=== PATIENT | male | born 1975 | race Two or more races ===

== ENCOUNTER 2024-10-04 18:46 | Inpatient (IN) | payer MEDICAID ==
[~2024-10-04] VITALS: Ht 165.1 cm; Wt 99.9 kg
--- NOTE | 2024-10-04 19:12 | ECG ---
[facility] Test Date: 2024-10-04 Test Time: 19:00:04 Pat Name: SHILA MARTINEZ Department: ED Room: Gender: M [employer] Technician: JOSE DAVID : 1975 Requested By: VENUS COSME Order Number: [id number] Reading MD: Dereck Shankar Measurements Intervals [place] Rate: 107 P: 46 MD: 139 QRS: 95 QRSD: 77 T: 19 QT: 351 QTc: 469 Interpretive Statements Sinus tachycardia Anterior infarct, old Electronically Signed On 10-04-2024 20:40:10 PDT by Dereck Shankar Please click the below link to view image of tracing.
[2024-10-04 19:21] LABS: Basophils # (auto) 0.1 10 ^3/uL (0-0.2); Basophils % (auto) 0.8 % (0.0-2.0); Eosinophils # (auto) 0.1 10 ^3/uL (0-0.8); Eosinophils % (auto) 0.7 % (0.0-7.0); Hematocrit 46.3 % (41.0-53.0); Hemoglobin 15.2 g/dL (13.5-17.5); Lymphocytes # (auto) 5.1 10 ^3/uL (0.4-5.4); Lymphocytes % (auto) 33.8 % (10.0-50.0); Mean Corpuscular Hemoglobin 27.1 pg (28.0-32.0); Mean Corpuscular Hgb Conc. 32.8 g/dL (32.0-36.0); Mean Corpuscular Volume 82.7 fL (80.0-100.0); Monocytes # (auto) 1.6 10 ^3/uL (0-1.3); Monocytes % (auto) 10.5 % (0.0-12.0); Neutrophils # (auto) 8.3 10 ^3/uL (1.6-8.6); Neutrophils % (auto) 54.2 % (37.0-80.0); Nucleated Red Blood Cells % 0.2 %; Platelet Count (auto) 381 10^3/uL (140-450); Red Cell Distribution Width 15.6 % (11.8-14.3); White Blood Cell 15.2 10^3/uL (4.4-10.8)
--- NOTE | 2024-10-04 19:30 | ED.PDOC ---
SOB-HPI HPI Comments 49 y.o male with PMHx of hyperlipidemia, presents to the ED for a chief co mplaint of SOB x 3 days. Upon ED arrival, patient was saturating at 90% on room air. Patient denies any home oxygen use, states new onset symptom with a 2 weeks history of illness that includes a productive cough with yellow phlegm and lower extremity swelling now radiating up to his thighs and abdomen. Patient is not on any water pill. He denies any chest pain, fever, chills, nausea, vomiting, diarrhea, congestion, or recent illness. Chief Complaint: Shortness of Breath Time Seen by MD: 19:00 Primary Care Provider: NONE Reviewed notes: Nurses Notes, Medications, Allergies Information Source: Patient Mode of Arrival: Ambulatory Severity: Moderate Timing: Days Duration: Since onset Context: At Rest PE Risk Factors: None History of: None Modifying Factors: Nothing Associated Signs and Symptoms: Cough If cough with SOB: Productive, Yellow Past Medical History PAST MEDICAL HISTORY: High Lipids Surgical History: Denies all surgeries Family History Family History: Unknown Social History Smoker: Non-Smoker Alcohol: Denies ETOH Use Drugs: Denies Drug Use Lives In: Home Constitutional: denies: chills, diaphoresis, fatigue, fever, malaise, sweats, weakness, others EENTM: denies: blurred vision, double vision, ear bleeding, ear discharge, ear drainage, ear pain, ear ringing, eye pain, eye redness, hearing loss, mouth pain, mouth swelling, nasal discharge, nose bleeding, nose congestion, nose pain, photophobia, tearing, throat pain, throat swelling, voice changes, others Respiratory: reports: cough, SOB at rest, shortness of breath, SOB with excertion; denies: hemoptysis, orthopnea, stridor, wheezing, others Cardiovascular: denies: chest pain, dizzy spells, diaphoresis, Dyspnea on exertion, edema, irregular heart beat, left arm pain, lightheadedness, palpitations, PND, syncope, others Gastrointestinal: denies: abdomen distended, abdominal pain, blood streaked bowels, constipated, diarrhea, dysphagia, difficulty swallowing, hematemesis, melena, nausea, poor appetite, poor fluid intake, rectal bleeding, rectal pain, vomiting, others Genitourinary: denies: burning, dysuria, flank pain, frequency, hematuria, incontinence, penile discharge, penile sore, pain, testicle pain, testicle swelling, urgency, others Neurological: denies: dizziness, fainting, headache, left sided numbness, left sided weakness, numbness, paresthesia, pre-existing deficit, right sided numbness, right sided weakness, seizure, speech problems, tingling, tremors, we akness, others Musculoskeletal: reports: others (lower extremity swelling radiating to his abdomen ); denies: back pain, gout, joint pain, joint swelling, muscle pain, muscle stiffness, neck pain Integumetry: denies: bruises, change in color, change in hair/nails, dryness, laceration, lesions, lumps, rash, wounds, others Allergic/Immunocompromised: denies: Difficulty Healing, Frequent Infections, Hives, Itching, others Hematologic/Lymphatic: denies: anemia, blood clots, easy bleeding, easy bruising, swollen glands, others Endocrine: denies: excessive hunger, excessive sweating, excessive thirst, excessive urination, flushing, intolerance to cold, intolerance to heat, unexplained weight gain, unexplained weight loss, others Psychiatric: denies: anxiety, bipolar disorder, depression, hopeless, panic disorder, schizophrenia, sleepless, suicidal, others All Other Systems: Reviewed and Negative Physical Exam General Appearance: No Apparent Distress, Normal HEENT: Normal ENT Inspection, Pharynx Normal, TMs Normal Neck: Full Range of Motion, Non-Tender, Normal, Normal Inspection Respiratory: Lungs Clear, No Respiratory Distress, Other (tachypneic) Cardiovascular: No Edema, No JVD, No Murmur, No Gallop, Normal Peripheral Pulses, Regular Rate/Rhythm Breast Exam: Deferred Gastrointestinal: Normal Bowel Sounds Genitalia: Deferred Pelvic: Deferred Rectal: Deferred Extremities: Pedal edema (3+ pitting leg edema ) 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 Was a procedure done?: No Differential Dx Differential Diagnosis: Bronchitis, CHF, Pneumonia, Respiratory Distress, Sinusitis, URI X-Ray, Labs, Meds, VS Vital Signs Date Time Temp Pulse Resp B/P (MAP) Pulse Ox O2 Delivery O2 Flow Rate FiO2 10/04/24 21:06 98.0 107 24 117/74 (88) 96 98.0 10/04/24 21:06 107 24 96 Nasal Cannula 3.0 10/04/24 19:00 107 10/04/24 18:54 96 Nasal Cannula* 2 28 10/04/24 18:50 97.8 113 28 129/94 (106) 90 97.8 Lab Test 10/04/24 19:55 10/04/24 19:06 Range/Units Troponin I High Sensitivity 12 12 </=54 ng/L White Blood Count 15.2 H 4.4-10.8 10^3/uL Red Blood Count 5.60 4.5-5.90 10^6/uL Hemoglobin 15.2 13.5-17.5 g/dL Hematocrit 46.3 41.0-53.0 % Mean Corpuscular Volume 82.7 80.0-100.0 fL Mean Corpuscular Hemoglobin 27.1 L 28.0-32.0 pg Mean Corpuscular Hemoglobin Concent 32.8 32.0-36.0 g/dL Red Cell Distribution Width 15.6 H 11.8-14.3 % Platelet Count 381 140-450 10^3/uL Mean Platelet Volume 9.5 6.9-10.8 fL Neutrophils (%) (Auto) 54.2 37.0-80.0 % Lymphocytes (%) (Auto) 33.8 10.0-50.0 % Monocytes (%) (Auto) 10.5 0.0-12.0 % Eosinophils (%) (Auto) 0.7 0.0-7.0 % Basophils (%) (Auto) 0.8 0.0-2.0 % Neutrophils # (Auto) 8.3 1.6-8.6 10 ^3/uL Lymphocytes # (Auto) 5.1 0.4-5.4 10 ^3/uL Monocytes # (Auto) 1.6 H 0-1.3 10 ^3/uL Eosinophils # (Auto) 0.1 0-0.8 10 ^3/uL Basophils # (Auto) 0.1 0-0.2 10 ^3/uL Nucleated Red Blood Cells 0.2 % Sodium Level 139 136-145 mmol/L Potassium Level 4.6 3.5-5.1 mmol/L Chloride Level 106 98-107 mmol/L Carbon Dioxide Level 28 20-31 mmol/L Anion Gap 5 5-15 Blood Urea Nitrogen 18 9-23 mg/dL Creatinine 1.36 H 0.700-1.30 mg/dL Glomerular Filtration Rate Calc 64 >90 mL/min BUN/Creatinine Ratio 13.2 10.0-20.0 Serum Glucose 122 H 74-106 mg/dL Calcium Level 8.0 L 8.7-10.4 mg/dL Total Bilirubin 0.2 0.2-1.0 mg/dL Aspartate Amino Transferase (AST) 33 13-40 U/L Alanine Aminotransferase (ALT) 20 7-40 U/L Alkaline Phosphatase 232 H 46-116 U/L B-Type Natriuretic Peptide 51.28 0-100 pg/mL Total Protein 3.5 L 5.7-8.2 g/dL Albumin 1.8 L 3.2-4.8 g/dL CHEST RADIOGRAPH IMPRESSION: 1. Large right pleural effusion. HS:Y X-Ray, Labs, Meds, VS Comment Imaging: X-rays and CT scans were reviewed and interpreted by this provider, large right-sided pleural effusion. Pending radiology review. Laboratory: Labs reviewed patient was have elevated white count but normal BNP Patient has prior medical visits reviewed. Med reconciliation performed Vital signs reviewed, patient currently on 2 L nasal cannula maintaining 96% Patient will be admitted for pleural effusion, peripheral edema, Concerns of pill or effusion may has been caused by pneumonia he was patient was have elevated white count. Patient will be started on azithromycin and Rocephin. Recommend pulmonology consult in the morning Time of 1ST Reevaluation: 19:29 Reevaluation 1ST: Unchanged Patient Education/Counseling: Diagnosis, Treatment, Prognosis Family Education/Counseling: No Family Present Departure 1 Departure Time of Disposition: 21:50 Impression: Primary Impression: Pleural effusion Additional Impressions: Peripheral edema Hypoxia Disposition: ADMITTED INPATIENT Condition: Stable Discharged With: Self, Relative Critical Care Note Critical Care Time?: No Stability Stability form required: No I personally scribed for VENUS COSME ([facility]) on 10/04/24 at 19:30. Electronically submitted by Glenda Deng ([facility]). I personally scribed for VENUS COSME ([facility]) on 10/04/24 at 20:52. Electronically submitted by Glenda Deng ([facility]). VENUS OCSME [facility] Oct 04, 2024 19:30
[2024-10-04 19:39] LABS: Alanine Aminotransferase 20 U/L (7-40); Anion Gap 5 (5-15); Aspartate Aminotransferase 33 U/L (13-40); BUN/Creatinine Ratio 13.2 (10.0-20.0); Blood Urea Nitrogen 18 mg/dL (9-23); Carbon Dioxide 28 mmol/L (20-31); Chloride 106 mmol/L (98-107); Potassium 4.6 mmol/L (3.5-5.1); Sodium 139 mmol/L (136-145)
[2024-10-04 19:40] LABS: Albumin 1.8 g/dL (3.2-4.8); Alkaline Phosphatase 232 U/L (46-116); Bilirubin, Total 0.2 mg/dL (0.2-1.0); Glucose 122 mg/dL (74-106); Total Protein 3.5 g/dL (5.7-8.2)
--- NOTE | 2024-10-04 19:47 | DVH ---
CHEST RADIOGRAPH Indication: sob Technique: Single frontal view of the chest was obtained Comparison: None FINDINGS: Lines and Tubes: None Lungs: Large right pleural effusion Pleura: Large right pleural effusion No pneumothorax. Cardiomediastinal contours: Unremarkable Bones: No acute osseous abnormality. IMPRESSION: 1. Large right pleural effusion. HS:Y
[2024-10-04 21:29] VITALS: PULSE 108; RESP 17; O2SAT 94
[2024-10-04] MEDS: cefTRIAXone 1GM/50ML D5W 50 ML IV ONE (22:12)
[2024-10-04] MEDS: AZITHROMYCIN 500MG/ 250ML 250 ML IV ONE (22:23)
[2024-10-04] MEDS ORDERED: TEMAZEPAM 15 MG CAP PO PRN (22:30)
[2024-10-04] MEDS ORDERED: ONDANSETRON HCL 4 MG/2 ML VIAL IV PRN (22:30)
[2024-10-04] MEDS ORDERED: ALBUTEROL SULF 2.5 MG/0.5ML(0.5%) NEB SOLN NEB PRN (22:30)
[2024-10-04] MEDS ORDERED: ACETAMINOPHEN 325 MG TAB PO PRN (22:30)
[2024-10-04 22:41] LABS: Urine Bacteria None Seen /hpf (None Seen)
[2024-10-04 22:51] VITALS: BP 137/89; PULSE 108; RESP 17; TEMP 98.8; O2SAT 94
[2024-10-04 23:05] LABS: Urine Blood 2+ /uL (Negative); Urine Clarity Turbid (Clear); Urine Color Light-Yellow (Yellow); Urine Hyaline Cast FEW /lpf (0 - 2); Urine Mucus FEW (None Seen); Urine Protein, UAD 3+ (Negative); Urine Specific Gravity 1.017 (1.001-1.035); Urine Squamous Epithelial Cell None Seen /hpf (<5); Urine Urobilinogen Normal (Negative); Urine WBC 3 /HPF (0-3); Urine pH 6.5 (5.0-9.0)
[2024-10-04] MEDS: ALBUMIN 25% 50 ML IV ONE (23:20)
[2024-10-04] MEDS: FUROSEMIDE 40 MG/4 ML VIAL IV ONE (23:40)
[2024-10-05] VITALS (12 sets, daily range): BP systolic 100–138; BP diastolic 54–79; PULSE 84–101; RESP 17–20; TEMP 97.7–98.3; O2SAT 91–98
--- NOTE | 2024-10-05 00:21 | DVH ---
CT Chest without intravenous contrast INDICATION: SOB TECHNIQUE: Multidetector spiral CT of the chest was performed from the lung apices to the upper abdom en. Axial, coronal and sagittal multiplanar reformats were performed. Radiation Dose : 1. Chest: CTDI volume is 24.84 mGy. Dose-length product is 879.3 mGy*cm The dose indicators for CT are the volume Computed Tomography (CT) Dose Index (CTDIvol) and the Dose Length Product (DLP), and are measured in units of mGy and mGy-cm, respectively. These indicators are not patient dose, but values generated from the CT scanner acquisition factors. The report includes radiation exposure data for exposures received during this examination. Comparison: None Findings: Lower neck: Within normal limits Lungs: Within normal limits Heart/Vascular Structures: Small anterior pericardial effusion. Lymph Nodes: No adenopathy Pleura: Large right-sided pleural effusion with adjacent compressive atelectasis. Small left-sided pl eural effusion. Musculoskeletal: Within normal limits Body wall: Diffuse anasarca. Upper abdomen: Within normal limits IMPRESSION: 1. Large right-sided pleural effusion with adjacent compressive atelectasis. Small left-sided pleura l effusion. Diffuse anasarca.
--- NOTE | 2024-10-05 00:29 | DVHHP2 ---
History of Present Illness Reason for Visit: Shortness for breath History of Present Illness 49-year-old male presents for evaluation of shortness for breath. Patient endorses a three day history of worsening shortness for breath with associated nonproductive cough. He has also noticed bilateral lower extremity swelling. He states that in the past he has had lower extremity swelling which normally resolves on its own and matter of days. Denies history of renal failure or congestive heart failure. Past Medical History Hyperlipidemia Past Surgical History Denies Family History Noncontributory Smoke: No ALCOHOL: none Drugs: None Lives: with Family Review of Systems Review of Systems Review of systems are currently negative otherwise addressed in HPI. Allergies: Coded Allergies: NO KNOWN ALLERGIES (Unverified , 06/25/12) Medications Current Medications Medications Dose Ordered Sig/Matthias Route Start Time Stop Time Status Last Admin Dose Admin Albuterol 2.5 mg Q6HPRN PRN NEB 10/04/24 22:30 Azithromycin 250 ml @ 125 mls/hr DAILY IV 10/05/24 10:00 Temazepam 15 mg QHSP PRN PO 10/04/24 22:30 Ondansetron HCl 4 mg Q4HP PRN IV 10/04/24 22:30 Acetaminophen 650 mg Q6HP PRN PO 10/04/24 22:30 Exam Vital Signs Vital Signs Date Time Temp Pulse Resp B/P (MAP) Pulse Ox O2 Delivery O2 Flow Rate FiO2 10/04/24 23:40 132/87 10/04/24 22:51 98.8 108 17 94 4.0 36 98.8 10/04/24 21:29 Nasal Cannula* Exam Gen: 49-year-old male in mild distress Skin: Warm, dry, normal color and texture, no rash. HEENT: Normocephalic atraumatic, mucous membranes moist and pink. Neck: Cervical and supraclavicular nodes normal without enlargement, trachea is midline, thyroid gland is normal without masses. Pulmonary: C diminished right lung zones Cardiac: Sinus tachycardia Abdomen: Soft, nontender, nondistended, bowel sounds present all 4 quadrants, no guarding, no rigidity, no organomegaly. Extremities: No cyanosis, clubbing, plus two bilateral pedal edema Neuro: Cranial nerves II through XII grossly intact, normal affect and speech, no focal motor deficits. Labs/Xrays ORDERING PHYSICIAN: VENUS COSME PROCEDURE(s): CXRP - CHEST PORTABLE REASON: sob ORDER NUMBER(s): [id number], ACCESSION NUMBER(s): [id number] CHEST RADIOGRAPH Indication: sob Technique: Single frontal view of the chest was obtained Comparison: None FINDINGS: Lines and Tubes: None Lungs: Large right pleural effusion Pleura: Large right pleural effusion No pneumothorax. Cardiomediastinal contours: Unremarkable Bones: No acute osseous abnormality. IMPRESSION: 1. Large right pleural effusion. HS:Y ATED BY: OSCAR LOPEZ Jr., DO DICTATED DATE/TIME: 10/04/241944 SIGNED BY: OSCAR LOPEZ Jr., SIGNED DATE/TIME: 10/04/241944 CC: Labs Test 10/04/24 21:40 10/04/24 19:55 10/04/24 19:06 Range/Units Urine Color Light-yellow Yellow Urine Clarity Turbid H Clear Urine pH 6.5 5.0-9.0 Urine Specific [place] 1.017 1.001-1.035 Urine Protein 3+ H Negative Urine Ketones Negative Negative Urine Blood 2+ H Negative /uL Urine Nitrite Negative Negative Urine Bilirubin Negative Negative Urine Urobilinogen Normal Negative mg/dL Urine Leukocyte Esterase Negative Negative /uL Urine RBC None seen 0 - 3 /hpf Urine Microscopic WBC 3 0-3 /HPF Urine Squamous Epithelial Cells None seen <5 /hpf Urine Bacteria None seen None Seen /hpf Urine Hyaline Casts Few 0 - 2 /lpf Urine Granular Casts Few 0 /lpf Urine Mucus Few None Seen Urine Glucose Normal Normal mg/dL Troponin I High Sensitivity 12 </=54 ng/L White Blood Count 15.2 H 4.4-10.8 10^3/uL Red Blood Count 5.60 4.5-5.90 10^6/uL Hemoglobin 15.2 13.5-17.5 g/dL Hematocrit 46.3 41.0-53.0 % Mean Corpuscular Volume 82.7 80.0-100.0 fL Mean Corpuscular Hemoglobin 27.1 L 28.0-32.0 pg Mean Corpuscular Hemoglobin Concent 32.8 32.0-36.0 g/dL Red Cell Distribution Width 15.6 H 11.8-14.3 % Platelet Count 381 140-450 10^3/uL Mean Platelet Volume 9.5 6.9-10.8 fL Neutrophils (%) (Auto) 54.2 37.0-80.0 % Lymphocytes (%) (Auto) 33.8 10.0-50.0 % Monocytes (%) (Auto) 10.5 0.0-12.0 % Eosinophils (%) (Auto) 0.7 0.0-7.0 % Basophils (%) (Auto) 0.8 0.0-2.0 % Neutrophils # (Auto) 8.3 1.6-8.6 10 ^3/uL Lymphocytes # (Auto) 5.1 0.4-5.4 10 ^3/uL Monocytes # (Auto) 1.6 H 0-1.3 10 ^3/uL Eosinophils # (Auto) 0.1 0-0.8 10 ^3/uL Basophils # (Auto) 0.1 0-0.2 10 ^3/uL Nucleated Red Blood Cells 0.2 % Sodium Level 139 136-145 mmol/L Potassium Level 4.6 3.5-5.1 mmol/L Chloride Level 106 98-107 mmol/L Carbon Dioxide Level 28 20-31 mmol/L Anion Gap 5 5-15 Blood Urea Nitrogen 18 9-23 mg/dL Creatinine 1.36 H 0.700-1.30 mg/dL Glomerular Filtration Rate Calc 64 >90 mL/min BUN/Creatinine Ratio 13.2 10.0-20.0 Serum Glucose 122 H 74-106 mg/dL Calcium Level 8.0 L 8.7-10.4 mg/dL Total Bilirubin 0.2 0.2-1.0 mg/dL Aspartate Amino Transferase (AST) 33 13-40 U/L Alanine Aminotransferase (ALT) 20 7-40 U/L Alkaline Phosphatase 232 H 46-116 U/L B-Type Natriuretic Peptide 51.28 0-100 pg/mL Total Protein 3.5 L 5.7-8.2 g/dL Albumin 1.8 L 3.2-4.8 g/dL Assessment/Plan Assessment/Plan Assessment Large right pleural effusion Severe protein malnutrition with hypoalbuminemia Proteinuria Leukocytosis Plan Admit the patient to [facility] to the hospitalist CT of the chest pending Radiology consult Nephrology consultation Give one dose of IV Lasix with albumin Continue treatment per orders. Plan discussed with: Patient My Orders Orders - EKTA MENON Procedure Category Date Status Time Albuterol Medneb PHA 10/04/24 In Process (Ventolin Medneb) 22:30 Echo 2d Mode Cardiac US 10/04/24 Logged DOP 22:28 Azithromycin 500mg/ PHA 10/05/24 In Process 250ml (Zithromax 50 10:00 Urine LAB 10/04/24 Logged Protein/Creatinine Chest Without Contrast CT 10/04/24 Resulted 22:28 * Radiologist Consult CONS 10/04/24 Transmitted 22:28 Admit ADMIT 10/04/24 Transmitted 22:28 Temazepam (Restoril) PHA 10/04/24 In Process 22:30 Ondansetron Hcl PHA 10/04/24 In Process (Zofran) 22:30 Cardiac DIET 10/05/24 Transmitted Diet-2gna,Lofat,Lochol Breakfast Condition: Stable SANTI 10/04/24 In Process 22:28 Acetaminophen Tablet PHA 10/04/24 In Process (Tylenol Tablet) 22:30 Bedrest With Bathroom SANTI 10/04/24 In Process Privileg 22:28 Basic Metabolic Panel LAB 10/05/24 Logged 04:00 *[facility] CONS 10/05/24 Verified -[place] 00:24 Date of Service: Oct 04, 2024 Billing Provider: EKTA MENON Common Visit Codes: [id number] INP/OBS CARE (HIGH) EKTA MENON Oct 05, 2024 00:29
[2024-10-05 05:32] LABS: Creatinine, Urine 99.69 mg/dL (30.0-125.0)
[2024-10-05 05:35] LABS: Urine Protein/Creatinine Ratio 12.63
[2024-10-05 05:36] LABS: Protein, Urine 1258.9 mg/dL (1-14)
[2024-10-05 07:56] LABS: Chloride 107 mmol/L (98-107); Potassium 4.2 mmol/L (3.5-5.1); Sodium 142 mmol/L (136-145)
[2024-10-05 07:57] LABS: Anion Gap 7 (5-15); Carbon Dioxide 28 mmol/L (20-31)
[2024-10-05 08:02] LABS: BUN/Creatinine Ratio 13.7 (10.0-20.0); Blood Urea Nitrogen 16 mg/dL (9-23); Glucose 87 mg/dL (74-106)
[2024-10-05 10:00] LABS: Magnesium 2.1 mg/dL (1.6-2.6)
[2024-10-05 10:06] LABS: Phosphorus 5.5 mg/dL (2.4-5.1)
[2024-10-05 10:43] LABS: Hepatitis B Surface Antigen Negative (Negative); Hepatitis C Antibody Negative (Negative)
[2024-10-05] MEDS: AZITHROMYCIN 500MG/ 250ML 250 ML IV SCH (10:57)
[2024-10-05] MEDS: FUROSEMIDE 20 MG/2 ML VIAL IV SCH ×2 (10:57→12:55)
--- NOTE | 2024-10-05 11:17 | DVH ---
INDICATION: ckd TECHNIQUE: Multiple real-time sonographic images of the kidneys and bladder were obtained. COMPARISON: None FINDINGS: The right kidney measures 12 cm in length, which is normal in size. There is normal echogen icity of the right kidney. No hydronephrosis. The left kidney measures 11 cm in length, which is normal in size. There is normal echogenicity of th e left kidney. No hydronephrosis. No large intraluminal masses are seen in the bladder. IMPRESSION: 1. Normal sonographic appearance of the kidneys. No hydronephrosis.
--- NOTE | 2024-10-05 11:28 | DVHPNRES ---
Progress Note Date Seen: Oct 05, 2024 Resident Creating Document: URIEL STEWART RESIDENT Has the PT tested + for MRSA If YES, has PT been informed?: No Medical Necessity Reason Pt with a Central, PICC or Fol: No Subjective Review of Systems This is a 49-year-old male with past medical history of hyperlipidemia, who presented to the ED with chief complaint of shortness of breaths. The patient states that three days ago he started noticing bilateral lower extremity swelling that has been getting worse extending from bilateral foods all the way up to bilateral thighs. The patient also reports associated shortness of breaths and nonproductive cough. The patient also reports that the shortness of breath gets worse with the exertion and denies any similar episode before. Patient states that in the past he had one single episode of bilateral lower extremity swelling that improved by its own. Patient denies any heart failure, COPD, renal failure or any heart issues. Upon admission, initial WBC was 15.2, BNP showed an elevated creatinine at 1.36 and BUN 18. Urinalysis showed 3+ protein, 2+ blood and 1258 mg/dL of protein in 24 hours. Initial BNP was 51.28, EKG showed sinus tachycardia with no significant ST or T-wave abnormalities and troponins came back negative. Echocardiogram was ordered. Initial chest x-ray was showing severe large right-sided pleural effusion, so IR was consulted for right-sided thoracentesis and patient was admitted for further assessment and management. Patient seen and examined at bedside. Patient is alert and oriented in person, place and time. The patient is currently on 2 L of oxygen through nasal cannula. Upon my examination, there is severe 3+ pitting edema on bilateral lower extremities extending up to bilateral thighs. Right-sided thoracentesis was performed this morning, chest x-ray still showing right-sided pleural effusion in less quantity and there is no pneumothorax at this time. Echocardiogram was performed but still pending results. We will consult Nephrology for possible glomerulonephritis. Patient denies any alcohol, drugs or smoking history. Patient reports mild epigastric tenderness upon palpation but no additional complaints at this time. ROS Constitutional: Denies weight loss, fever and chills. HEENT: Denies changes in vision and hearing. Respiratory: Reports shortness of breath and nonproductive cough. Cardiovascular: Denies chest discomfort or palpitations GI: Denies abdominal pain, nausea, vomiting and diarrhea. : Denies dysuria and urinary frequency. Musculoskeletal: Reports severe bilateral 3+ pitting edema extending from bilateral foot all the way up to bilateral thighs. Skin: Denies rash and pruritus. Neurological: Denies dizziness, headache, vision or hearing problems Objective vital signs Vital Sign Date Time Temp Pulse Resp B/P (MAP) Pulse Ox O2 Delivery O2 Flow Rate FiO2 10/05/24 09:00 98.0 86 18 111/64 (80) 96 98.0 10/05/24 06:02 Nasal Cannula 3.0 10/05/24 06:02 32 Total Intake and Output 10/04/24 10/04/24 10/05/24 15:00 23:00 07:00 Intake Total 0 ml Balance 0 ml medications Current Medications Medications Dose Ordered Sig/Matthias Route Start Time Stop Time Status Last Admin Dose Admin Albuterol 2.5 mg Q6HPRN PRN NEB 10/04/24 22:30 Azithromycin 250 ml @ 125 mls/hr DAILY IV 10/05/24 10:00 Temazepam 15 mg QHSP PRN PO 10/04/24 22:30 Ondansetron HCl 4 mg Q4HP PRN IV 10/04/24 22:30 Acetaminophen 650 mg Q6HP PRN PO 10/04/24 22:30 Furosemide 20 mg DAILY IV 10/05/24 10:00 Examination Physical Examination General: Patient alert and oriented in person, place and time. Patient following commands. HEENT: Normocephalic, atraumatic, moist mucous membranes Respiratory/pulmonary: There is decreased breath sounds on bilateral lungs but more marked in the right lung likely due to severe pleural effusion. Very mild crackles at this time, no wheezes. Cardiovascular: Normal heart sounds S1 and S2 with no associated murmurs Abdomen: Abdomen nondistended, there is mild pain to palpation in the epigastric region. No palpable masses at this time. Extremities: There is severe bilateral lower extremity 3+ pitting edema extending from the foot up to bilateral thighs. Peripheral Pulses: 3+ Radial (R). 3+ Radial (L). 3+ Dorsalis pedis (R). 3+ Dorsalis pedis(L) Skin: No rashes or pruritus, there is no sacral edema present at this time. Neurological: Intact cranial nerves with no focal neurologic deficits laboratory and microbiology Laboratory Tests 10/05/24 06:47 10/04/24 19:06 Test 10/05/24 06:47 Range/Units Serum Glucose 87 74-106 mg/dL Labs and/or images reviewed: Labs reviewed by me, Image(s) reviewed by me Problem List/Assessment/Plan Problem List/Assessment/Plan Assessment/plan Acute hypoxic respiratory failure likely due to massive right-sided pleural effusion Possible acute glomerulonephritis R/O Acute diastolic/systolic heart failure Leukocytosis; can not rule out sepsis; continue antibiotics for now -initial chest x-ray shows severe large right-sided pleural effusion -there is significant bilateral lower extremity 3+ pitting edema extending from bilateral foots all the way up to bilateral thighs. -currently on 2 L of oxygen through nasal cannula -initial BNP was 51.28 -EKG showed sinus tachycardia with no significant ST/T-waves abnormality -troponins came back negative -ordered echocardiogram -UA showed 3+ protein, 2+ blood, 1258 mg/dL proteinuria in 24 hour (non nephrotic range) -consulted nephrology for possible kidney biopsy (possible glomerulonephritis) -IR was consulted for right-sided thoracentesis which was performed today in the AM. -furosemide 20 mg IV daily -Methylprednisolone 40mg IV BID LUIS likely due to glomerular disease; can not rule out vasomotor nephropathy -creatinine 1.36, BUN 18 -consulted nephrology, possible need of kidney biopsy -ordered complement C3 and C4 -ordered ANCA panel -ordered HIV and hepatitis panel. Dyslipidemia -ordered lipid panel Goals of care discussed with the patient at bedside for 20 minutes. FULL CODE Plan discussed with Dr. Rojas Plan discussed with: Patient, Other (Nurse) My Orders My Orders Orders - URIEL STEWART RESIDENT Procedure Category Date Status Time Furosemide Injection PHA 10/05/24 In Process (Lasix Injection) 10:00 Lipid Panel LAB 10/05/24 In Process 10:55 Complement C3 & C4 LAB 10/05/24 Logged 11:11 Anca Panel LAB 10/05/24 Logged 11:11 Anti-Dsdna Antibody LAB 10/05/24 Verified 11:12 Hiv 1&2 Antibody LAB 10/05/24 Verified 11:12 Addendum Addendum Addendum I was physically present for the martinez portions of the service provided to patient by THE RESIDENT. I have reviewed the documentation, discussed the case with resident and agree with the resident's documentation except as noted. Also the patient's clinical case was discussed with the patient's nurse. This medical document was created using an electronic medical record system with computerized dictation system. Although this document has been carefully reviewed, there might still be some phonetic and typographical errors. These areas are purely typographical due to imperfections of the software programs, and do not reflect any compromise in the patient's medical care. Late signature. Date of Service: Oct 05, 2024 Billing Provider: ELAINE ROJAS MD Common Visit Codes: 05594-[id number] INP/OBS CARE(HIGH) Secondary Visit Codes: [id number] CARE PLAN 30 MINUTES (20 minutes) URIEL STEWART Oct 05, 2024 11:28 ELAINE ROJAS MD Oct 07, 2024 08:39
[2024-10-05 11:44] LABS: Cholesterol 567 mg/dL (< 200); HDL Cholesterol 38 mg/dL (40-59); LDL Cholesterol > 400 mg/dL (< 100); Triglycerides 311 mg/dL (< 150)
--- NOTE | 2024-10-05 12:06 | DVH ---
INDICATION: REPEAT FOR POSSIBLE PNEUMOTHORAX TECHNIQUE: Single frontal view of the chest was obtained COMPARISON: XY CHEST XRAY 1 VIEW on DOS: 10/05/24, XY CHEST PORTABLE on DOS: 10/04/24, XY CHEST XRAY 1 VIEW on DOS: 10/05/24 FINDINGS: Lines and Tubes: None Lungs: No focal consolidation. Pleura: Small right pleural effusion. No pneumothorax. Cardiomediastinal contours: Cardiomegaly. Bones: No acute osseous abnormality. IMPRESSION: Cardiomegaly with mild CHF. No pneumothorax status post thoracentesis
--- NOTE | 2024-10-05 12:16 | DVH ---
PROCEDURE: ULTRASOUND GUIDED THORACENTESIS USING TEMPORARY CATHETER HISTORY: THORACENTESIS DOCUMENTATION: Informed consent was obtained and a procedural time out was performed. FINDINGS: The risks and benefits of the procedure including bleeding, infection and pneumothorax were explained to the patient and written informed consent obtained. Optimal site for puncture long the right posterior chest wall was determined using real-time ultraso und and the region sterilized. Local anesthesia was instilled. A 5 Hebrew catheter was then advanced into the pleural space and 1.5 liters of straw colored fluid was removed. The patient tolerated the procedure well. IMPRESSION: Ultrasound guided right thoracentesis. Procedure by Dr. Mosley
[2024-10-05 12:19] LABS: Urine Bacteria None Seen /hpf (None Seen)
[2024-10-05 12:33] LABS: Urine Blood TRACE /uL (Negative); Urine Clarity Clear (Clear); Urine Color Colorless (Yellow); Urine Protein, UAD 2+ (Negative); Urine Specific Gravity 1.008 (1.001-1.035); Urine Squamous Epithelial Cell None Seen /hpf (<5); Urine Urobilinogen Normal (Negative); Urine WBC 1 /HPF (0-3); Urine pH 6.5 (5.0-9.0)
[2024-10-05] MEDS: methylPREDNISolone SOD SUCC 125 MG/2 ML VL IV ONE (12:52)
[2024-10-05] MEDS: CALCIUM ACETATE 667 MG CAP PO ONE (12:55)
[2024-10-05 13:34] LABS: Body Fluid Red Blood Cells 0 CUMM (0-2000); Body Fluid White Blood Cells 301 CUMM (0-200)
[2024-10-05 14:07] LABS: INR 1.08 (0.9-1.15); Partial Thromboplastin Time 34.7 SEC (24.5-34.5); Prothrombin Time 11.4 sec (9.3-11.8)
[2024-10-05] MEDS: ATORVASTATIN 20 MG TAB PO ONE (14:58)
--- NOTE | 2024-10-05 17:12 | DVHCONRES ---
Date Seen: Oct 05, 2024 Resident Creating Document: ADAM IBANEZ RESIDENT Referring Physician QUIN Nettles Reason for Consultation proteinuria History of Present Illness This is a 49-year-old male with a past medical history of hyperlipidemia, morbid obesity who presented to the emergency department with complaints of shortness of breath and a productive cough with white sputum. He reported progressive bilateral lower extremity swelling over the past two months, with episodes fluctuating in severity. Most recently, he experienced a significantly severe episode of swelling. On admission, chest X-ray revealed a right-sided pleural effusion. Laboratory workup showed significant proteinuria (urinalysis 3+ protein, urine total protein 1,258 mg/dL, hypoalbuminemia (serum albumin 1.8g, phosphorus elevated at 5.5 , white blood cell count elevated at 15.2. Past Medical History hyperlipidemia, morbid obesity Family History: Diabetes mellitus G8 FATHER Allergies: Coded Allergies: NO KNOWN ALLERGIES (Unverified , 06/25/12) Home Meds No Active Prescriptions or Reported Meds Current Medications Current Medications Medications (Trade) Dose Ordered Sig/Matthias Route PRN Reason Start Time Stop Time Status Last Admin Albuterol (Ventolin Medneb) 2.5 mg Q6HPRN PRN NEB SHORTNESS OF BREATH 10/04/24 22:30 Azithromycin 250 ml @ 125 mls/hr DAILY IV 10/05/24 10:00 10/05/24 10:57 Temazepam (Restoril) 15 mg QHSP PRN PO FOR INSOMNIA 10/04/24 22:30 Ondansetron HCl (Zofran) 4 mg Q4HP PRN IV NAUSEA / VOMITING 10/04/24 22:30 Acetaminophen (Tylenol Tablet) 650 mg Q6HP PRN PO PAIN SCALE 1-3 OR TEMP>100.4 10/04/24 22:30 Furosemide (Lasix Injection) 20 mg DAILY IV 10/05/24 10:00 10/05/24 12:16 DC 10/05/24 10:57 Methylprednisolone Sodium Succinate (Solu Medrol) 40 mg BID IV 10/05/24 22:00 Furosemide (Lasix Injection) 60 mg BID IV 10/05/24 12:15 10/05/24 12:55 Calcium Acetate (Phoslo Capsule) 667 mg TIDWMEALS PO 10/05/24 18:00 Atorvastatin Calcium (Lipitor) 80 mg HS PO 10/06/24 22:00 Review of Systems General: Positive for progressive lower extremity swelling; denies fever or chills. Respiratory: Positive for shortness of breath and productive cough. Cardiovascular: Denies chest pain or palpitations. Gastrointestinal: Denies nausea, vomiting, or abdominal pain. Genitourinary: Positive for lower extremity edema; denies dysuria or hematuria. Neurologic: No focal deficits reported. Skin: No rashes reported Vital Signs Vital Signs Date Time Temp Pulse Resp B/P (MAP) Pulse Ox O2 Delivery O2 Flow Rate FiO2 10/05/24 16:42 97.7 84 17 118/56 (76) 93 97.7 10/05/24 10:10 Nasal Cannula* 2 28 Physical Exam General: Obese male, alert, no acute distress. HEENT: Normocephalic, atraumatic. Cardiovascular: Regular rhythm, no murmurs or rubs. Respiratory: Decreased breath sounds on right side consistent with pleural effusion. Abdomen: Soft, non-tender, non-distended. Extremities: Significant bilateral pitting edema to the mid-shins. Neurologic: Alert and oriented 3; no focal neurologic deficits. Labs/Diagnostic Data Labs Test 10/05/24 13:35 10/05/24 12:05 10/05/24 11:35 10/05/24 10:05 Range/Units Prothrombin Time 11.4 9.3-11.8 sec Prothrombin Time INR 1.08 0.9-1.15 Activated Partial Thromboplast Time 34.7 H 24.5-34.5 SEC Urine Color Colorless Yellow Urine Clarity Clear Clear Urine pH 6.5 5.0-9.0 Urine Specific [place] 1.008 1.001-1.035 Urine Protein 2+ H Negative Urine Ketones Negative Negative Urine Blood Trace H Negative /uL Urine Nitrite Negative Negative Urine Bilirubin Negative Negative Urine Urobilinogen Normal Negative mg/dL Urine Leukocyte Esterase Negative Negative /uL Urine RBC 1 0 - 3 /hpf Urine Microscopic WBC 1 0-3 /HPF Urine Squamous Epithelial Cells None seen <5 /hpf Urine Bacteria None seen None Seen /hpf Urine Glucose Normal Normal mg/dL HIV (1&2) Antibody Negative Negative Body Fluid Source Pleural fluid Body Fluid pH 8.0 Body Fluid WBC (Manual) 301 H 0-200 CUMM Body Fluid RBC (Manual) 0 0-2000 CUMM Body Fluid Mononuclear Cells 96 % Body Fluid Polymorphonuclear Cells 4 0-25 % Test 10/05/24 06:47 10/04/24 21:40 10/04/24 19:55 10/04/24 19:06 Range/Units Sodium Level 142 136-145 mmol/L Potassium Level 4.2 3.5-5.1 mmol/L Chloride Level 107 98-107 mmol/L Carbon Dioxide Level 28 20-31 mmol/L Anion Gap 7 5-15 Blood Urea Nitrogen 16 9-23 mg/dL Creatinine 1.17 0.700-1.30 mg/dL Glomerular Filtration Rate Calc 77 >90 mL/min BUN/Creatinine Ratio 13.7 10.0-20.0 Serum Glucose 87 74-106 mg/dL Hemoglobin A1c 5.2 <5.7 % A1C Calcium Level 8.0 L 8.7-10.4 mg/dL Phosphorus Level 5.5 H 2.4-5.1 mg/dL Magnesium Level 2.1 1.6-2.6 mg/dL Triglycerides Level 311 H < 150 mg/dL Cholesterol Level 567 H < 200 mg/dL LDL Cholesterol > 400 H < 100 mg/dL HDL Cholesterol 38 L 40-59 mg/dL Vitamin D 25-Hydroxy 11.6 L 30.0-100 ng/mL Parathyroid Hormone (Intact) 68.1 18.4-80.1 pg/mL Hepatitis B Surface Antigen Negative Negative Hepatitis C Antibody Negative Negative Urine Hyaline Casts Few 0 - 2 /lpf Urine Granular Casts Few 0 /lpf Urine Mucus Few None Seen Urine Osmolality 262 mOsm/kg Urine Creatinine 99.69 30.0-125.0 mg/dL Urine Protein/Creatinine Ratio 12.63 Urine Total Protein 1258.9 H 1-14 mg/dL Troponin I High Sensitivity 12 </=54 ng/L White Blood Count 15.2 H 4.4-10.8 10^3/uL Red Blood Count 5.60 4.5-5.90 10^6/uL Hemoglobin 15.2 13.5-17.5 g/dL Hematocrit 46.3 41.0-53.0 % Mean Corpuscular Volume 82.7 80.0-100.0 fL Mean Corpuscular Hemoglobin 27.1 L 28.0-32.0 pg Mean Corpuscular Hemoglobin Concent 32.8 32.0-36.0 g/dL Red Cell Distribution Width 15.6 H 11.8-14.3 % Platelet Count 381 140-450 10^3/uL Mean Platelet Volume 9.5 6.9-10.8 fL Neutrophils (%) (Auto) 54.2 37.0-80.0 % Lymphocytes (%) (Auto) 33.8 10.0-50.0 % Monocytes (%) (Auto) 10.5 0.0-12.0 % Eosinophils (%) (Auto) 0.7 0.0-7.0 % Basophils (%) (Auto) 0.8 0.0-2.0 % Neutrophils # (Auto) 8.3 1.6-8.6 10 ^3/uL Lymphocytes # (Auto) 5.1 0.4-5.4 10 ^3/uL Monocytes # (Auto) 1.6 H 0-1.3 10 ^3/uL Eosinophils # (Auto) 0.1 0-0.8 10 ^3/uL Basophils # (Auto) 0.1 0-0.2 10 ^3/uL Nucleated Red Blood Cells 0.2 % Total Bilirubin 0.2 0.2-1.0 mg/dL Aspartate Amino Transferase (AST) 33 13-40 U/L Alanine Aminotransferase (ALT) 20 7-40 U/L Alkaline Phosphatase 232 H 46-116 U/L B-Type Natriuretic Peptide 51.28 0-100 pg/mL Assessment Assessment LUIS- r/o Glomerular pathology Hypoalbuminemia likely due to nephrotic Syndrome, unknown etiology Right pleural effusion likely secondary to nephrotic syndrome Hyperphosphatemia Hyperlipidemia likely due to nephrotic syndrome (increased hepatic lipoprotein synthesis) Hypercoagulable state due to nephrotic syndrome Plan kidney biopsy for definitive diagnosis (pending radiology consult). Monitor urine protein/creatinine ratio, renal function daily (BMP, albumin levels). Thoracentesis to be performed for diagnostic and therapeutic purposes. Increase furosemide dose ,Lasix 60 mg BID IV. Monitor daily weights and strict intake/output. Fluid and sodium restriction. Initiate phosphate binder if phosphorus persists elevated. Monitor phosphorus levels daily. Start atorvastatin 80 mg daily for LDL control and cardiovascular protection. Hold DVT prophylaxis until after kidney biopsy, Initiate anticoagulation post- biopsy. Renal diet. Monitor labs daily: BMP, CBC, albumin, phosphorus. Educate patient regarding disease process and need for biopsy. case discussed with code status full code Addendum Patient seen and examined, plan discussed with resident. Agree with above, we will follow closely JOHN Anca panel C3-C4 myeloma panel have been ordered HIV hepatitis panel Increase Lasix to 60 mg b.i.d. Kidney biopsy as ordered Solu-Medrol 1 g IV for three days Plan discussed with: Patient ADAM IBANEZ RESIDENT Oct 05, 2024 17:12 SHREYAS MOISE MD Oct 05, 2024 19:21
[2024-10-05] MEDS: CALCIUM ACETATE 667 MG CAP PO SCH (18:08)
[2024-10-05] MEDS ORDERED: methylPREDNISolone SOD SUCC 125 MG/2 ML VL IV ONE (20:00)
[2024-10-05] MEDS: methylPREDNISolone SOD SUCC 1,000 MG in SODIUM CHL 0.9% 250 ML IV ONE (21:32)
[2024-10-06] VITALS (11 sets, daily range): BP systolic 104–114; BP diastolic 51–69; PULSE 80–89; RESP 16–19; TEMP 97.5–97.8; O2SAT 93–99
[2024-10-06 06:27] LABS: Basophils # (auto) 0 10 ^3/uL (0-0.2); Basophils % (auto) 0.1 % (0.0-2.0); Eosinophils # (auto) 0 10 ^3/uL (0-0.8); Hematocrit 43.5 % (41.0-53.0); Hemoglobin 14.2 g/dL (13.5-17.5); Lymphocytes # (auto) 2.3 10 ^3/uL (0.4-5.4); Lymphocytes % (auto) 17.3 % (10.0-50.0); Mean Corpuscular Hgb Conc. 32.7 g/dL (32.0-36.0); Mean Corpuscular Volume 82.6 fL (80.0-100.0); Monocytes # (auto) 0.1 10 ^3/uL (0-1.3); Neutrophils % (auto) 81.6 % (37.0-80.0); Nucleated Red Blood Cells % 0.2 %; Platelet Count (auto) 373 10^3/uL (140-450); Red Blood Cells 5.26 10^6/uL (4.5-5.90); Red Cell Distribution Width 15.6 % (11.8-14.3); White Blood Cell 13.5 10^3/uL (4.4-10.8)
[2024-10-06 06:57] LABS: Anion Gap 5 (5-15); Carbon Dioxide 27 mmol/L (20-31); Chloride 105 mmol/L (98-107); Potassium 4.6 mmol/L (3.5-5.1); Sodium 137 mmol/L (136-145)
[2024-10-06 07:03] LABS: BUN/Creatinine Ratio 16.9 (10.0-20.0)
[2024-10-06 07:06] LABS: Blood Urea Nitrogen 23 mg/dL (9-23); Calcium 7.8 mg/dL (8.7-10.4); Glucose 146 mg/dL (74-106)
[2024-10-06 08:07] LABS: Antistreptolysin O Antibody <20.0 IU/mL (0.0-200.0); Complement C3 73 mg/dL (82-167); Immunoglobulin A 260 mg/dL (90-386); Immunoglobulin G, Serum 100 mg/dL (603-1613); Immunoglobulin M 34 mg/dL (20-172)
[2024-10-06 09:07] LABS: Anti-Centromere B Antibody <0.2 AI (0.0-0.9); Anti-Jo-1 Antibody <0.2 AI (0.0-0.9); Anti-dsDNA Antibody <1 IU/mL (0-9); Antichromatin Antibody <0.2 AI (0.0-0.9); Antiscleroderma-70 Antibody <0.2 AI (0.0-0.9); RNP Antibody <0.2 AI (0.0-0.9); Sjogren's Anti-SS-A Antibody <0.2 AI (0.0-0.9); Sjogren's Anti-SS-B Antibody <0.2 AI (0.0-0.9); Smith Antibody <0.2 AI (0.0-0.9)
[2024-10-06] MEDS: methylPREDNISolone SOD SUCC 40 MG/ML VL IV SCH (09:28)
--- NOTE | 2024-10-06 10:53 | DVH ---
US US GUIDANCE FOR NEEDLE PLACEME, HISTORY: KIDNEY BIOPSY PROCEDURE: Informed consent was obtained. Limited ultrasound of the right kidney was obtained. The o verlying skin was prepped with chlorhexidine which was allowed to dry and draped in the usual sterile fashion. Time out was performed. The skin and soft tissue were infiltrated with 1% lidocaine, and IV sedation was administered. Under real-time ultrasound guidance, 1 biopsy specimen was obtained using [employer] 18 gauge core biopsy needle; these were given to the operator electronic warfare in attendance. P ost biopsy scan was performed. No immediate complication was noted. SEDATION: Dr. Bull Mosley was personally responsible for the administration of moderate sedation during the procedure performed, including the use of an independent trained observer who had no other duties during the procedure. The drugs utilized were IV fentanyl and versed (see nursing log for details). The total time of supervision by the attending physician was approximately 30 minutes. FINDINGS: Limited intraprocedural ultrasound demonstrates biopsy needle within the renal cortex of r ight kidney. Small post procedural hematoma is noted. IMPRESSION: Ultrasound biopsy of the right kidney. Pathology results pending.
[2024-10-06] MEDS ORDERED: methylPREDNISolone SOD SUCC 40 MG/ML VL IV SCH (13:00)
--- NOTE | 2024-10-06 13:31 | DVHPNRES ---
Progress Note Date Seen: Oct 06, 2024 Resident Creating Document: URIEL STEWART RESIDENT Has the PT tested + for MRSA If YES, has PT been informed?: No Medical Necessity Reason Pt with a Central, PICC or Fol: No Subjective Review of Systems This is a 49-year-old male with past medical history of hyperlipidemia, who presented to the ED with chief complaint of shortness of breaths. The patient states that three days ago he started noticing bilateral lower extremity swelling that has been getting worse extending from bilateral foods all the way up to bilateral thighs. The patient also reports associated shortness of breaths and nonproductive cough. The patient also reports that the shortness of breath gets worse with the exertion and denies any similar episode before. Patient states that in the past he had one single episode of bilateral lower extremity swelling that improved by its own. Patient denies any heart failure, COPD, renal failure or any heart issues. Upon admission, initial WBC was 15.2, BNP showed an elevated creatinine at 1.36 and BUN 18. Urinalysis showed 3+ protein, 2+ blood and 1258 mg/dL of protein in 24 hours. Initial BNP was 51.28, EKG showed sinus tachycardia with no significant ST or T-wave abnormalities and troponins came back negative. Echocardiogram was ordered. Initial chest x-ray was showing severe large right-sided pleural effusion, so IR was consulted for right-sided thoracentesis and patient was admitted for further assessment and management. Patient seen and examined at bedside. Patient was alert and oriented in person, place and time. Patient states that he is feeling much better compared to admission. Patient still having bilateral lower extremity 2+ pitting edema that has slightly improved compared to admission. Patient was taken to the OR for kidney biopsy to determine the underlying etiology or disease. Nephrology is on board and increase his IV steroids to 1000 mg methylprednisolone daily, changed furosemide 60 mg b.i.d. to Bumex drip. And also started the patient on metolazone 5 mg daily. Patient has no significant complaints at this time but is still on 2 L of oxygen through nasal cannula. ROS Constitutional: Denies weight loss, fever and chills. HEENT: Denies changes in vision and hearing. Respiratory: Denies shortness of breath and cough Cardiovascular: Denies chest discomfort or palpitations GI: Denies abdominal pain, nausea, vomiting and diarrhea. : Denies dysuria and urinary frequency. Musculoskeletal: Still reports bilateral lower extremity swelling. Denies myalgias and joint pain Skin: Denies rash and pruritus. Neurological: Denies dizziness, headache, vision or hearing problems Objective vital signs Vital Sign Date Time Temp Pulse Resp B/P (MAP) Pulse Ox O2 Delivery O2 Flow Rate FiO2 10/06/24 12:30 97.7 80 19 109/63 (78) 95 97.7 10/06/24 10:23 Nasal Cannula 2.0 10/06/24 10:23 28 Total Intake and Output 10/05/24 10/05/24 10/06/24 15:00 23:00 07:00 Intake Total 250 ml 1500 ml 100 ml Output Total 1150 ml 350 ml Balance 250 ml 350 ml -250 ml medications Current Medications Medications Dose Ordered Sig/Matthias Route Start Time Stop Time Status Last Admin Dose Admin Albuterol 2.5 mg Q6HPRN PRN NEB 10/04/24 22:30 Azithromycin 250 ml @ 125 mls/hr DAILY IV 10/05/24 10:00 10/06/24 09:28 125 MLS/HR Temazepam 15 mg QHSP PRN PO 10/04/24 22:30 Ondansetron HCl 4 mg Q4HP PRN IV 10/04/24 22:30 Acetaminophen 650 mg Q6HP PRN PO 10/04/24 22:30 Furosemide 60 mg BID IV 10/05/24 12:15 10/06/24 09:29 60 MG Calcium Acetate 667 mg TIDWMEALS PO 10/05/24 18:00 10/06/24 13:23 667 MG Atorvastatin Calcium 80 mg HS PO 10/06/24 22:00 Methylprednisolone Sodium Succinate 1,000 mg DAILY IV 10/06/24 13:00 10/07/24 10:01 UNV Examination Physical Examination General: Patient alert and oriented in person, place and time. Patient following commands. HEENT: Normocephalic, atraumatic, moist mucous membranes Respiratory/pulmonary: There is decreased breath sounds on bilateral lungs but more marked in the right lung. Very mild crackles at this time, no wheezes. Cardiovascular: Normal heart sounds S1 and S2 with no associated murmurs Abdomen: Abdomen nondistended, there is mild pain to palpation in the epigastric region. No palpable masses at this time. Extremities: There is severe bilateral lower extremity 3+ pitting edema extending from the foot up to bilateral thighs. slightly improved compare to admission. Peripheral Pulses: 3+ Radial (R). 3+ Radial (L). 3+ Dorsalis pedis (R). 3+ Dorsalis pedis(L) Skin: No rashes or pruritus, there is no sacral edema present at this time. Neurological: Intact cranial nerves with no focal neurologic deficits laboratory and microbiology Laboratory Tests 10/06/24 05:36 Test 10/06/24 05:36 Range/Units Serum Glucose 146 H 74-106 mg/dL Microbiology Date/Time Source Procedure Growth Status 10/05/24 10:05 Pleural Fluid Gram Stain Pending Resulted 10/05/24 10:05 Pleural Fluid Aerobic Culture - Preliminary Resulted Labs and/or images reviewed: Labs reviewed by me, Image(s) reviewed by me Problem List/Assessment/Plan Problem List/Assessment/Plan Assessment/plan Acute hypoxic respiratory failure likely due to massive right-sided pleural effusion Possible acute glomerulonephritis R/O Acute diastolic/systolic heart failure Leukocytosis; can not rule out sepsis; continue antibiotics for now -initial chest x-ray shows severe large right-sided pleural effusion -there is significant bilateral lower extremity 3+ pitting edema extending from bilateral foots all the way up to bilateral thighs. -currently on 2 L of oxygen through nasal cannula -initial BNP was 51.28 -EKG showed sinus tachycardia with no significant ST/T-waves abnormality -troponins came back negative -ordered echocardiogram -UA showed 3+ protein, 2+ blood, 1258 mg/dL proteinuria in 24 hour (non nephrotic range) -consulted nephrology for possible kidney biopsy (possible glomerulonephritis) -IR was consulted for right-sided thoracentesis which was performed today in the AM. -Discontinue furosemide -Start Bumex drip -Start metolazone 5 mg daily -Discontinue Methylprednisolone 40mg IV BID -Start methylprednisolone 1000mg daily IV -Patient underwent kidney biopsy by IR today. LUIS likely due to glomerular disease; can not rule out vasomotor nephropathy -creatinine 1.36, BUN 18 -consulted nephrology, possible need of kidney biopsy -ordered complement C3 and C4. Complement C3 is low but complement C4 is normal -ordered ANCA panel, negative -ordered HIV which came back negative and hepatitis panel came back negative as well. -antistreptolysin O titers were negative Dyslipidemia -ordered lipid panel which came back significantly elevated. Plan discussed with Dr. Rojas Plan discussed with: Patient, Other (Nurse) My Orders My Orders Orders - URIEL STEWART Procedure Category Date Status Time Ct Guidance For CT 10/06/24 Taken Needle Placeme 07:[address] 10/06/24 Taken Contrast 07:14 Us Guidance For US 10/06/24 Resulted Needle Placeme 08:44 Addendum Addendum Addendum I was physically present for the martinez portions of the service provided to patient by THE RESIDENT. I have reviewed the documentation, discussed the case with resident and agree with the resident's documentation except as noted. Also the patient's clinical case was discussed with the patient's nurse. This medical document was created using an electronic medical record system with computerized dictation system. Although this document has been carefully reviewed, there might still be some phonetic and typographical errors. These areas are purely typographical due to imperfections of the software programs, and do not reflect any compromise in the patient's medical care. Late signature. Date of Service: Oct 06, 2024 Billing Provider: ELAINE ROJAS MD Common Visit Codes: [id number] INP/OBS CARE(HIGH) URIEL STEWART RESIDENT Oct 06, 2024 13:31 ELAINE ROJAS MD Oct 07, 2024 08:41
[2024-10-06 14:07] LABS: Protein, Body Fluid 0.2 g/dL (.)
[2024-10-06] MEDS: metOLazone 5 MG TAB PO ONE (15:36)
[2024-10-06 16:06] LABS: Kappa Lite Chain Free Serum 17.9 mg/L (3.3-19.4)
--- NOTE | 2024-10-06 16:57 | DVHPN2 ---
Progress Note Date Seen: Oct 06, 2024 Resident Creating Document: ADAM IBANEZ RESIDENT Has the PT tested + for MRSA If YES, has PT been informed?: No Medical Necessity Reason Pt with a Central, PICC or Fol: No Subjective Review of Systems Patient seen and examined at bedside, patient alert and oriented x3 he denies any acute complaint but still having lower extremity swelling for which he will be started on Bumex drip and metolazone and continue with steroid for 3 days. Tomorrow patient's she was started on DVT prophylaxis. Patient reports: No new complaints Changes from previous H/P or p: No Changes Objective vital signs Vital Sign Date Time Temp Pulse Resp B/P (MAP) Pulse Ox O2 Delivery O2 Flow Rate FiO2 10/06/24 16:26 97.7 84 19 106/69 (81) 99 97.7 10/06/24 10:23 Nasal Cannula 2.0 10/06/24 10:23 28 Total Intake and Output 10/05/24 10/05/24 10/06/24 15:00 23:00 07:00 Intake Total 250 ml 1500 ml 100 ml Output Total 1150 ml 350 ml Balance 250 ml 350 ml -250 ml medications Current Medications Medications Dose Ordered Sig/Matthias Route Start Time Stop Time Status Last Admin Dose Admin Albuterol 2.5 mg Q6HPRN PRN NEB 10/04/24 22:30 Azithromycin 250 ml @ 125 mls/hr DAILY IV 10/05/24 10:00 10/06/24 09:28 125 MLS/HR Temazepam 15 mg QHSP PRN PO 10/04/24 22:30 Ondansetron HCl 4 mg Q4HP PRN IV 10/04/24 22:30 Acetaminophen 650 mg Q6HP PRN PO 10/04/24 22:30 Calcium Acetate 667 mg TIDWMEALS PO 10/05/24 18:00 10/06/24 13:23 667 MG Atorvastatin Calcium 80 mg HS PO 10/06/24 22:00 Bumetanide 12.5 mg/Miscellaneous 50 ml @ 2 mls/hr Q24H IV 10/06/24 14:30 Metolazone 5 mg DAILY PO 10/07/24 10:00 Methylprednisolone Sodium Succinate 1000 mg/Sodium Chloride 250 ml @ 300 mls/hr DAILY@1600 IV 10/06/24 16:00 5//25 17:00 Examination: GENERAL:Normal, HEENT:Normal, NECK:Normal, LUNGS:Normal, CVS:Normal, ABDOMEN:Normal, MSK:Abnormal, SKIN:Abnormal, NEURO:Normal, :Normal laboratory and microbiology Laboratory Tests 10/06/24 05:36 Test 10/06/24 05:36 Range/Units Serum Glucose 146 H 74-106 mg/dL Microbiology Date/Time Source Procedure Growth Status 10/05/24 10:05 Pleural Fluid Gram Stain Pending Resulted 10/05/24 10:05 Pleural Fluid Aerobic Culture - Preliminary Resulted Problem List/Assessment/Plan Problem List/Assessment/Plan LUIS- r/o Glomerular pathology Hypoalbuminemia likely due to nephrotic Syndrome, unknown etiology Right pleural effusion likely secondary to nephrotic syndrome Hyperphosphatemia Hyperlipidemia likely due to nephrotic syndrome Hypercoagulable state due to nephrotic syndrome Plan kidney biopsy was performed today, pending results Bumex drip and metolazone 5 mg p.o. Monitor daily weights and strict intake/output. Fluid and sodium restriction. Solu-Medrol 1 g IV for 3 days Start atorvastatin 80 mg daily for LDL control and cardiovascular protection. Patient can resume DVT ppx tomorrow morning Renal diet. JOHN, ANCA, and panel C3-C4 myeloma panel were ordered case discussed with code status full code Addendum Patient seen and examined, plan discussed with resident. Agree with above, we will follow closely Plan discussed with: Patient NAWAF DurhamADAM Oct 06, 2024 16:57 SHREYAS MOISE MD Oct 06, 2024 19:17
[2024-10-06] MEDS: BUMETANIDE INJECTION 12.5 MG in GIVE UN-DILUTED 0 ML IV SCH (17:09)
[2024-10-06] MEDS: methylPREDNISolone SOD SUCC 1,000 MG in SODIUM CHL 0.9% 250 ML IV SCH (17:09)
[2024-10-06] MEDS: ATORVASTATIN 20 MG TAB PO SCH (21:36)
[2024-10-07] VITALS (12 sets, daily range): BP systolic 98–117; BP diastolic 51–70; PULSE 68–90; RESP 16–20; TEMP 97.4–98.1; O2SAT 92–96
--- NOTE | 2024-10-07 07:45 | DVHPN2 ---
Progress Note Date Seen: Oct 07, 2024 Resident Creating Document: ADAM IBANEZ RESIDENT Has the PT tested + for MRSA If YES, has PT been informed?: No Medical Necessity Reason Pt with a Central, PICC or Fol: No The following are medically ne: Escoto Catheter Reason for escoto catheter: Strict I&O Subjective Review of Systems Patient is seen and examined at bedside, patient lower extremity swelling persist, patient should continue on diuretics as prescribed and recent kappa/lambda ratio was low for which Hematology consult was ordered for further evaluation. Patient reports: No new complaints Changes from previous H/P or p: No Changes Objective vital signs Vital Sign Date Time Temp Pulse Resp B/P (MAP) Pulse Ox O2 Delivery O2 Flow Rate FiO2 10/07/24 05:00 97.7 83 16 98/51 (67) 93 97.7 10/06/24 20:00 Nasal Cannula* 1 24 Total Intake and Output 10/06/24 10/06/24 10/07/24 15:00 23:00 07:00 Intake Total 250 ml 1570 ml 400 ml Output Total 700 ml Balance 250 ml 870 ml 400 ml medications Current Medications Medications Dose Ordered Sig/Matthias Route Start Time Stop Time Status Last Admin Dose Admin Albuterol 2.5 mg Q6HPRN PRN NEB 10/04/24 22:30 Azithromycin 250 ml @ 125 mls/hr DAILY IV 10/05/24 10:00 10/06/24 09:28 125 MLS/HR Temazepam 15 mg QHSP PRN PO 10/04/24 22:30 Ondansetron HCl 4 mg Q4HP PRN IV 10/04/24 22:30 Acetaminophen 650 mg Q6HP PRN PO 10/04/24 22:30 Calcium Acetate 667 mg TIDWMEALS PO 10/05/24 18:00 10/06/24 18:20 667 MG Atorvastatin Calcium 80 mg HS PO 10/06/24 22:00 10/06/24 21:36 80 MG Bumetanide 12.5 mg/Miscellaneous 50 ml @ 2 mls/hr Q24H IV 10/06/24 14:30 10/06/24 17:09 2 MLS/HR Metolazone 5 mg DAILY PO 10/07/24 10:00 Methylprednisolone Sodium Succinate 1000 mg/Sodium Chloride 250 ml @ 300 mls/hr DAILY@1600 IV 10/06/24 16:00 10/08/24 17:00 10/06/24 17:09 300 MLS/HR Examination: GENERAL:Normal, HEENT:Normal, NECK:Normal, LUNGS:Normal, CVS:Normal, ABDOMEN:Normal, MSK:Normal, SKIN:Abnormal, NEURO:Normal, :Normal laboratory and microbiology Laboratory Tests 10/06/24 05:36 Test 10/06/24 05:36 Range/Units Serum Glucose 146 H 74-106 mg/dL Microbiology Date/Time Source Procedure Growth Status 10/05/24 10:05 Pleural Fluid Gram Stain Pending Resulted 10/05/24 10:05 Pleural Fluid Aerobic Culture - Preliminary Resulted Problem List/Assessment/Plan Problem List/Assessment/Plan LUIS- r/o Glomerular pathology Hypoalbuminemia likely due to nephrotic Syndrome, unknown etiology Right pleural effusion likely secondary to nephrotic syndrome Hyperphosphatemia Hyperlipidemia likely due to nephrotic syndrome (increased hepatic lipoprotein synthesis) Hypercoagulable state due to nephrotic syndrome [place]/lambda ratio decreased Plan kidney biopsy results are pending Hematology consult Bumex drip and metolazone 5 mg p.o. Monitor daily weights and strict intake/output. Fluid and sodium restriction. Solu-Medrol 1 g IV for 3 days Start atorvastatin 80 mg daily for LDL control and cardiovascular protection. Patient can resume DVT prophylaxis Renal diet. case discussed with code status full code Addendum Patient seen and examined, plan discussed with resident. Agree with above, we will follow closely lambda chains high-heme onc eval Albumin iv Plan discussed with: Patient ADAM IBANEZ Oct 07, 2024 07:45 SHREYAS MOISE MD Oct 07, 2024 16:37
--- NOTE | 2024-10-07 07:46 | DVHPNRES ---
Progress Note Date Seen: Oct 07, 2024 Resident Creating Document: URIEL STEWART RESIDENT Has the PT tested + for MRSA If YES, has PT been informed?: No Medical Necessity Reason Pt with a Central, PICC or Fol: No Subjective Review of Systems This is a 49-year-old male with past medical history of hyperlipidemia, who presented to the ED with chief complaint of shortness of breaths. The patient states that three days ago he started noticing bilateral lower extremity swelling that has been getting worse extending from bilateral foods all the way up to bilateral thighs. The patient also reports associated shortness of breaths and nonproductive cough. The patient also reports that the shortness of breath gets worse with the exertion and denies any similar episode before. Patient states that in the past he had one single episode of bilateral lower extremity swelling that improved by its own. Patient denies any heart failure, COPD, renal failure or any heart issues. Upon admission, initial WBC was 15.2, BNP showed an elevated creatinine at 1.36 and BUN 18. Urinalysis showed 3+ protein, 2+ blood and 1258 mg/dL of protein in 24 hours. Initial BNP was 51.28, EKG showed sinus tachycardia with no significant ST or T-wave abnormalities and troponins came back negative. Echocardiogram was ordered. Initial chest x-ray was showing severe large right-sided pleural effusion, so IR was consulted for right-sided thoracentesis and patient was admitted for further assessment and management. Patient seen and examined at bedside. Patient is alert and oriented in person, place and time. Patient is currently on 1 L of oxygen through nasal cannula. Patient still having bilateral lower extremity significant swelling 3+ pitting edema. We will order a chest ultrasound and depending on the amount of residual pleural effusion in the right side of the lung we will decide to perform a 2nd right-sided thoracentesis. Nephrology is on board, patient is status post kidney biopsy performed yesterday. Patient will continue IV methylprednisolone 1000 mg daily, Bumex drip, metolazone 5 mg daily. We are waiting for kidney biopsy results to determine exact etiology of kidney disease. ROS: Constitutional: Denies weight loss, fever and chills. HEENT: Denies changes in vision and hearing. Respiratory: Reports very mild shortness of breath. Denies cough. Cardiovascular: Denies chest discomfort or palpitations GI: Denies abdominal pain, nausea, vomiting and diarrhea. : Denies dysuria and urinary frequency. Musculoskeletal: Still reports significant lower extremity swelling. Denies myalgias and joint pain Skin: Denies rash and pruritus. Neurological: Denies dizziness, headache, vision or hearing problems Objective vital signs Vital Sign Date Time Temp Pulse Resp B/P (MAP) Pulse Ox O2 Delivery O2 Flow Rate FiO2 10/07/24 05:00 97.7 83 16 98/51 (67) 93 97.7 10/06/24 20:00 Nasal Cannula* 1 24 Total Intake and Output 10/06/24 10/06/24 10/07/24 15:00 23:00 07:00 Intake Total 250 ml 1570 ml 400 ml Output Total 700 ml Balance 250 ml 870 ml 400 ml medications Current Medications Medications Dose Ordered Sig/Matthias Route Start Time Stop Time Status Last Admin Dose Admin Albuterol 2.5 mg Q6HPRN PRN NEB 10/04/24 22:30 Azithromycin 250 ml @ 125 mls/hr DAILY IV 10/05/24 10:00 10/06/24 09:28 125 MLS/HR Temazepam 15 mg QHSP PRN PO 10/04/24 22:30 Ondansetron HCl 4 mg Q4HP PRN IV 10/04/24 22:30 Acetaminophen 650 mg Q6HP PRN PO 10/04/24 22:30 Calcium Acetate 667 mg TIDWMEALS PO 10/05/24 18:00 10/06/24 18:20 667 MG Atorvastatin Calcium 80 mg HS PO 10/06/24 22:00 10/06/24 21:36 80 MG Bumetanide 12.5 mg/Miscellaneous 50 ml @ 2 mls/hr Q24H IV 10/06/24 14:30 10/06/24 17:09 2 MLS/HR Metolazone 5 mg DAILY PO 10/07/24 10:00 Methylprednisolone Sodium Succinate 1000 mg/Sodium Chloride 250 ml @ 300 mls/hr DAILY@1600 IV 10/06/24 16:00 10/08/24 17:00 10/06/24 17:09 300 MLS/HR Examination Physical Examination General: Patient alert and oriented in person, place and time. Patient following commands. HEENT: Normocephalic, atraumatic, moist mucous membranes Respiratory/pulmonary: There is decreased breath sounds on bilateral lungs but more marked in the right lung. Very mild crackles at this time, no wheezes. Cardiovascular: Normal heart sounds S1 and S2 with no associated murmurs Abdomen: Abdomen nondistended, there is mild pain to palpation in the epigastric region. No palpable masses at this time. Extremities: There is severe bilateral lower extremity 3+ pitting edema extending from the foot up to bilateral thighs. slightly improved compare to admission. Peripheral Pulses: 3+ Radial (R). 3+ Radial (L). 3+ Dorsalis pedis (R). 3+ Dorsalis pedis(L) Skin: No rashes or pruritus, there is no sacral edema present at this time. Neurological: Intact cranial nerves with no focal neurologic deficits laboratory and microbiology Laboratory Tests 10/06/24 05:36 Test 10/06/24 05:36 Range/Units Serum Glucose 146 H 74-106 mg/dL Microbiology Date/Time Source Procedure Growth Status 10/05/24 10:05 Pleural Fluid Gram Stain Pending Resulted 10/05/24 10:05 Pleural Fluid Aerobic Culture - Preliminary Resulted Labs and/or images reviewed: Labs reviewed by me, Image(s) reviewed by me Problem List/Assessment/Plan Problem List/Assessment/Plan Assessment/plan Acute hypoxic respiratory failure likely due to massive right-sided pleural effusion Possible acute glomerulonephritis R/O Acute diastolic/systolic heart failure Leukocytosis -initial chest x-ray shows severe large right-sided pleural effusion -there is significant bilateral lower extremity 3+ pitting edema extending from bilateral foots all the way up to bilateral thighs. -currently on 2 L of oxygen through nasal cannula -initial BNP was 51.28 -EKG showed sinus tachycardia with no significant ST/T-waves abnormality -troponins came back negative -ordered echocardiogram -UA showed 3+ protein, 2+ blood, 1258 mg/dL proteinuria in 24 hour (non nephrotic range) -consulted nephrology for possible kidney biopsy (possible glomerulonephritis) -IR was consulted for right-sided thoracentesis which was performed today in the AM. -continue Bumex drip -continue metolazone 5 mg daily -continue methylprednisolone 1000mg daily IV -Patient underwent kidney biopsy per IR on 10/06/24. -Pending kidney biopsy results LUIS likely due to glomerular disease -creatinine 1.36, BUN 18 -consulted nephrology, possible need of kidney biopsy -ordered complement C3 and C4. Complement C3 is low but complement C4 is normal -ordered ANCA panel, negative -ordered HIV which came back negative and hepatitis panel came back negative as well. -antistreptolysin O titers were negative Dyslipidemia Morbid obesity -ordered lipid panel which came back significantly elevated. -counseled the patient about the importance of adopting healthy lifestyle with diet and exercise in order to lose weight Plan discussed with Dr. Rojas Plan discussed with: Patient, Other (RN) My Orders My Orders Orders - URIEL STEWART Procedure Category Date Status Time Us Guidance For US 10/06/24 Resulted Needle Placeme 08:44 Complete Blood Count LAB 10/07/24 Logged 05:37 Basic Metabolic Panel LAB 10/07/24 Logged 05:37 Lactate Dehydrogenase LAB 10/07/24 Transmitted 07:40 Addendum Addendum Addendum I was physically present for the martinez portions of the service provided to patient by THE RESIDENT. I have reviewed the documentation, discussed the case with resident and agree with the resident's documentation except as noted. Also the patient's clinical case was discussed with the patient's nurse. This medical document was created using an electronic medical record system with computerized dictation system. Although this document has been carefully reviewed, there might still be some phonetic and typographical errors. These areas are purely typographical due to imperfections of the software programs, and do not reflect any compromise in the patient's medical care. Late signature. Date of Service: Oct 07, 2024 Billing Provider: ELAINE ROJAS MD Common Visit Codes: [id number] INP/OBS CARE(HIGH) URIEL STEWART RESIDENT Oct 07, 2024 07:46 ELAINE ROJAS MD October 09, 2024 03:47
--- NOTE | 2024-10-07 07:52 | DVHSR ---
APPROVED REPORT EXAM: Two-dimensional and M-mode echocardiogram with Doppler and color Doppler. Blood Pressure: 107/66 mmHg INDICATION EF RISK FACTORS Height: 65, Weight: 268 DIMENSIONS LVDd3.3 (3.8-5.7cm)LA (2D) (1.9-4.0cm)Aortic Root3.3 (2.0-3.7cm) LVDs2.3 (2.5-4.0cm)LA (MM) (1.9-4.0cm)Aortic Cusp Exc2.3 (1.5-2.0cm) EF (%) 58.0 (55-70%)Rt. Atrium (1.9-4.0cm)Asc. Aorta cm IVSd1.6 (0.7-1.1cm)RV (D) (1.8-2.4cm) PWd1.9 (0.7-1.1cm) Mitral Valve MitralMitral Stenosis E wave0.65m/sMV Mean GR.mmHg A wave0.90m/sMV Peak GR.mmHg E/A ratio0.72D MVAcm2 DECEL [id number] 1/2 [id number] IVRTmsDop MVA4.26cm2 Aortic Valve Aortic ValveAortic Stenosis V11.08m/Kenzie Mean GR.5mmHg V21.50m/Kenzie Peak GR.9mmHg LVOT Diameter2.1 (1.8-2.4cm)Doppler AVA2.49cm2 Pulmonic Valve V20.95m/s Other Information Technically limited study due to body habitus and patient position. Conclusion lvef 55% moderate LVH left atrium enlarged pericardial fat pad
--- NOTE | 2024-10-07 08:20 | DVH ---
Bilateral Chest Sonogram Date: 10/07/2024 07:28 AM Clinical history: FLUID CHECK FOR POSSIBLE THORACENTESIS Findings: Limited sonographic evaluation of the right and left chest was performed to localize and claribel fluid f or thoracentesis. There is a small pleural effusion. IMPRESSION: Small bilateral pleural effusions, too small for thoracentesis. END IMPRESSION:
[2024-10-07] MEDS: metOLazone 5 MG TAB PO SCH (10:22)
[2024-10-07 10:43] LABS: Basophils # (auto) 0 10 ^3/uL (0-0.2); Basophils % (auto) 0.1 % (0.0-2.0); Eosinophils # (auto) 0 10 ^3/uL (0-0.8); Hematocrit 43.4 % (41.0-53.0); Hemoglobin 14.4 g/dL (13.5-17.5); Lymphocytes # (auto) 1.8 10 ^3/uL (0.4-5.4); Lymphocytes % (auto) 6.8 % (10.0-50.0); Mean Corpuscular Hemoglobin 27.4 pg (28.0-32.0); Mean Corpuscular Hgb Conc. 33.1 g/dL (32.0-36.0); Mean Corpuscular Volume 82.6 fL (80.0-100.0); Neutrophils # (auto) 23.5 10 ^3/uL (1.6-8.6); Neutrophils % (auto) 89.1 % (37.0-80.0); Platelet Count (auto) 393 10^3/uL (140-450); Red Blood Cells 5.25 10^6/uL (4.5-5.90); Red Cell Distribution Width 15.6 % (11.8-14.3); White Blood Cell 26.4 10^3/uL (4.4-10.8)
[2024-10-07 10:57] LABS: Anion Gap 7 (5-15); Carbon Dioxide 28 mmol/L (20-31); Chloride 102 mmol/L (98-107); Potassium 4.2 mmol/L (3.5-5.1); Sodium 137 mmol/L (136-145)
[2024-10-07 10:59] LABS: Calcium 7.8 mg/dL (8.7-10.4)
[2024-10-07 11:03] LABS: BUN/Creatinine Ratio 23.8 (10.0-20.0)
[2024-10-07 11:04] LABS: Blood Urea Nitrogen 41 mg/dL (9-23); Glucose 197 mg/dL (74-106)
[2024-10-07 13:08] LABS: Cytoplasmic (C-ANCA) <1:20 titer (Neg:<1:20); Perinuclear (P-ANCA) <1:20 titer (Neg:<1:20)
[2024-10-07] MEDS: ALBUMIN 25% 100 ML IV SCH (15:28)
[2024-10-07] MEDS: ENOXAPARIN SOD 40 MG/0.4 ML SYRINGE SC SCH (15:28)
--- NOTE | 2024-10-07 17:11 | DVH ---
CHEST RADIOGRAPH Indication: POST THORACENTESIS Technique: Single frontal view of the chest was obtained Comparison: XY CHEST PORTABLE on DOS: 10/04/24 FINDINGS: Lines and Tubes: None Lungs: No focal consolidation. Pleura: Small right pleural effusion. No pneumothorax. Cardiomediastinal contours: Cardiomegaly. Bones: No acute osseous abnormality. IMPRESSION: Cardiomegaly with mild CHF. No pneumothorax status post thoracentesis
[2024-10-08] VITALS (9 sets, daily range): BP systolic 93–105; BP diastolic 47–67; PULSE 53–85; RESP 16–20; TEMP 97.5–98.5; O2SAT 91–100
--- NOTE | 2024-10-08 08:05 | DVHPNRES ---
Progress Note Date Seen: October 08, 2024 Resident Creating Document: URIEL STEWART RESIDENT Has the PT tested + for MRSA If YES, has PT been informed?: No Medical Necessity Reason Pt with a Central, PICC or Fol: No The following are medically ne: Escoto Catheter Reason for escoto catheter: Strict I&O Subjective Review of Systems This is a 49-year-old male with past medical history of hyperlipidemia, who presented to the ED with chief complaint of shortness of breaths. The patient states that three days ago he started noticing bilateral lower extremity swelling that has been getting worse extending from bilateral foods all the way up to bilateral thighs. The patient also reports associated shortness of breaths and nonproductive cough. The patient also reports that the shortness of breath gets worse with the exertion and denies any similar episode before. Patient states that in the past he had one single episode of bilateral lower extremity swelling that improved by its own. Patient denies any heart failure, COPD, renal failure or any heart issues. Upon admission, initial WBC was 15.2, BNP showed an elevated creatinine at 1.36 and BUN 18. Urinalysis showed 3+ protein, 2+ blood and 1258 mg/dL of protein in 24 hours. Initial BNP was 51.28, EKG showed sinus tachycardia with no significant ST or T-wave abnormalities and troponins came back negative. Echocardiogram was ordered. Initial chest x-ray was showing severe large right-sided pleural effusion, so IR was consulted for right-sided thoracentesis and patient was admitted for further assessment and management. Patient seen and examined at bedside. Patient is alert and oriented in person, place and time. Patient still having significant bilateral lower extremity swelling on bilateral foot all the way up to mid thighs. Patient still on 2 L of oxygen through nasal cannula. We are still pending with kidney biopsy results, protein electrophoresis results. free kappa/lambda chains ratio was low, Heme/Onc was consulted as well. We will continue high dose steroids IV and bumex drip. ROS; Constitutional: Denies weight loss, fever and chills. HEENT: Denies changes in vision and hearing. Respiratory: Denies shortness of breath and cough Cardiovascular: Denies chest discomfort or palpitations GI: Denies abdominal pain, nausea, vomiting and diarrhea. : Denies dysuria and urinary frequency. Musculoskeletal: Still reports significant bilateral lower extremity swelling. Denies myalgias and joint pain Skin: Denies rash and pruritus. Neurological: Denies dizziness, headache, vision or hearing problems Objective vital signs Vital Sign Date Time Temp Pulse Resp B/P (MAP) Pulse Ox O2 Delivery O2 Flow Rate FiO2 10/08/24 06:03 92 Nasal Cannula 2.0 10/08/24 06:03 28 10/08/24 05:00 97.5 82 20 105/59 (74) 97.5 Total Intake and Output 10/07/24 10/07/24 10/08/24 15:00 23:00 07:00 Intake Total 250 ml 375 ml 350 ml Output Total 2250 ml Balance 250 ml -1875 ml 350 ml medications Current Medications Medications Dose Ordered Sig/Matthias Route Start Time Stop Time Status Last Admin Dose Admin Albuterol 2.5 mg Q6HPRN PRN NEB 10/04/24 22:30 Azithromycin 250 ml @ 125 mls/hr DAILY IV 10/05/24 10:00 10/07/24 10:23 125 MLS/HR Temazepam 15 mg QHSP PRN PO 10/04/24 22:30 Ondansetron HCl 4 mg Q4HP PRN IV 10/04/24 22:30 Acetaminophen 650 mg Q6HP PRN PO 10/04/24 22:30 Calcium Acetate 667 mg TIDWMEALS PO 10/05/24 18:00 10/07/24 18:04 667 MG Atorvastatin Calcium 80 mg HS PO 10/06/24 22:00 10/07/24 21:01 80 MG Bumetanide 12.5 mg/Miscellaneous 50 ml @ 2 mls/hr Q24H IV 10/06/24 14:30 10/07/24 17:43 2 MLS/HR Metolazone 5 mg DAILY PO 10/07/24 10:00 10/07/24 10:22 5 MG Methylprednisolone Sodium Succinate 1000 mg/Sodium Chloride 250 ml @ 300 mls/hr DAILY@1600 IV 10/06/24 16:00 10/08/24 17:00 10/07/24 17:43 300 MLS/HR Enoxaparin Sodium 40 mg DAILY SC 10/07/24 13:15 10/07/24 15:28 40 MG Examination Physical Examination General: Patient alert and oriented in person, place and time. Patient following commands. HEENT: Normocephalic, atraumatic, moist mucous membranes Respiratory/pulmonary: There is decreased breath sounds on bilateral lungs but more marked in the right lung. Very mild crackles at this time, no wheezes. Cardiovascular: Normal heart sounds S1 and S2 with no associated murmurs Abdomen: Abdomen nondistended, there is mild pain to palpation in the epigastric region. No palpable masses at this time. Extremities: There is severe bilateral lower extremity 3+ pitting edema extending from the foot up to bilateral thighs. slightly improved compare to admission. Peripheral Pulses: 3+ Radial (R). 3+ Radial (L). 3+ Dorsalis pedis (R). 3+ Dorsalis pedis(L) Skin: No rashes or pruritus, there is no sacral edema present at this time. Neurological: Intact cranial nerves with no focal neurologic deficits laboratory and microbiology Laboratory Tests 10/07/24 09:32 Test 10/07/24 09:32 Range/Units Serum Glucose 197 H 74-106 mg/dL Microbiology Date/Time Source Procedure Growth Status 10/05/24 10:05 Pleural Fluid Gram Stain - Final Resulted 10/05/24 10:05 Pleural Fluid Aerobic Culture - Preliminary Resulted Labs and/or images reviewed: Labs reviewed by me, Image(s) reviewed by me Problem List/Assessment/Plan Problem List/Assessment/Plan Assessment/plan Acute hypoxic respiratory failure likely due to massive right-sided pleural effusion Possible acute glomerulonephritis R/O Acute diastolic/systolic heart failure Leukocytosis -initial chest x-ray shows severe large right-sided pleural effusion -there is significant bilateral lower extremity 3+ pitting edema extending from bilateral foots all the way up to bilateral thighs. -currently on 2 L of oxygen through nasal cannula -initial BNP was 51.28 -EKG showed sinus tachycardia with no significant ST/T-waves abnormality -troponins came back negative -ordered echocardiogram -UA showed 3+ protein, 2+ blood, 1258 mg/dL proteinuria in 24 hour (non nephrotic range) -consulted nephrology for possible kidney biopsy (possible glomerulonephritis) -IR was consulted for right-sided thoracentesis which was performed today in the AM. -continue Bumex drip -continue metolazone 5 mg daily -continue methylprednisolone 1000mg daily IV -Patient underwent kidney biopsy per IR on 10/06/24. -Pending kidney biopsy results -Pending serum protein electrophoresis results -Heme/onc consulted LUIS likely due to glomerular disease -creatinine 1.36, BUN 18 -consulted nephrology, possible need of kidney biopsy -ordered complement C3 and C4. Complement C3 is low but complement C4 is normal -ordered ANCA panel, negative -ordered HIV which came back negative and hepatitis panel came back negative as well. -antistreptolysin O titers were negative Dyslipidemia Morbid obesity -ordered lipid panel which came back significantly elevated. -counseled the patient about the importance of adopting healthy lifestyle with diet and exercise in order to lose weight Plan discussed with Dr. Rojas Plan discussed with: Patient, Other (RN) My Orders My Orders Orders - URIEL STEWART RESIDENT Procedure Category Date Status Time Pt Request For Service PT 10/07/24 Logged 11:09 Complete Blood Count LAB 10/08/24 Logged 05:40 Basic Metabolic Panel LAB 10/08/24 Logged 05:40 Protein LAB 10/08/24 Logged Electrophoresis Serum 07:51 Addendum Addendum Addendum I was physically present for the martinez portions of the service provided to patient by THE RESIDENT. I have reviewed the documentation, discussed the case with resident and agree with the resident's documentation except as noted. Also the patient's clinical case was discussed with the patient's nurse. This medical document was created using an electronic medical record system with computerized dictation system. Although this document has been carefully reviewed, there might still be some phonetic and typographical errors. These areas are purely typographical due to imperfections of the software programs, and do not reflect any compromise in the patient's medical care. Late signature. Date of Service: October 08, 2024 Billing Provider: ELAINE ROJAS MD Common Visit Codes: [id number] INP/OBS CARE(HIGH) URIEL STEWART RESIDENT October 08, 2024 08:05 ELAINE ROJAS MD October 09, 2024 03:50
[2024-10-08 10:02] LABS: Chloride 102 mmol/L (98-107); Sodium 139 mmol/L (136-145)
[2024-10-08 10:03] LABS: Anion Gap 7 (5-15); Carbon Dioxide 30 mmol/L (20-31)
[2024-10-08 10:04] LABS: Calcium 7.9 mg/dL (8.7-10.4)
[2024-10-08 10:06] LABS: Basophils # (auto) 0 10 ^3/uL (0-0.2); Eosinophils # (auto) 0 10 ^3/uL (0-0.8); Hematocrit 36.2 % (41.0-53.0); Lymphocytes # (auto) 1.6 10 ^3/uL (0.4-5.4); Lymphocytes % (auto) 6.5 % (10.0-50.0); Mean Corpuscular Hemoglobin 27.1 pg (28.0-32.0); Mean Corpuscular Volume 82.2 fL (80.0-100.0); Monocytes % (auto) 4.2 % (0.0-12.0); Neutrophils # (auto) 21.9 10 ^3/uL (1.6-8.6); Neutrophils % (auto) 89.3 % (37.0-80.0); Platelet Count (auto) 304 10^3/uL (140-450); Red Blood Cells 4.41 10^6/uL (4.5-5.90); Red Cell Distribution Width 15.7 % (11.8-14.3); White Blood Cell 24.6 10^3/uL (4.4-10.8)
[2024-10-08 10:09] LABS: BUN/Creatinine Ratio 30.9 (10.0-20.0); Glucose 201 mg/dL (74-106)
[2024-10-08 10:10] LABS: Blood Urea Nitrogen 58 mg/dL (9-23)
[2024-10-08] MEDS ORDERED: POTASSIUM EFFERVESENT TAB 25 MEQ PO ONE (12:00)
[2024-10-08] MEDS: ALBUMIN 25% 100 ML IV SCH (12:34)
[2024-10-08] MEDS: POTASSIUM CHL 20 Meq TABLET PO ONE (13:07)
[2024-10-08] MEDS: LIDOCAINE 2%HCL (LOCAL ANESTH.) INJ 10ml MDV ONE (13:29)
[2024-10-08] MEDS: fentaNYL CITRATE 100 MCG/2 ML VL IV ONE (13:29)
[2024-10-08] MEDS: MIDAZOLAM HCL 2MG/2ML 2ml VIAL (1mg/ml) IV ONE (13:29)
--- NOTE | 2024-10-08 15:49 | DVHPN2 ---
Progress Note Date Seen: October 08, 2024 Resident Creating Document: ADAM IBANEZ RESIDENT Has the PT tested + for MRSA If YES, has PT been informed?: No Medical Necessity Reason Pt with a Central, PICC or Fol: No The following are medically ne: Escoto Catheter Reason for escoto catheter: Strict I&O Subjective Review of Systems Patient is seen and examined at bedside, still happen lower extremity swelling currently on Bumex drip and metolazone, continuing that and monitoring electrolytes. Biopsy results are pending. Patient reports: No new complaints Objective vital signs Vital Sign Date Time Temp Pulse Resp B/P (MAP) Pulse Ox O2 Delivery O2 Flow Rate FiO2 10/08/24 13:00 97.5 53 18 102/67 (79) 96 97.5 10/08/24 08:05 Nasal Cannula* 2 28 Total Intake and Output 10/07/24 10/07/24 10/08/24 15:00 23:00 07:00 Intake Total 250 ml 375 ml 350 ml Output Total 2250 ml Balance 250 ml -1875 ml 350 ml medications Current Medications Medications Dose Ordered Sig/Matthias Route Start Time Stop Time Status Last Admin Dose Admin Albuterol 2.5 mg Q6HPRN PRN NEB 10/04/24 22:30 Azithromycin 250 ml @ 125 mls/hr DAILY IV 10/05/24 10:00 10/08/24 09:30 125 MLS/HR Temazepam 15 mg QHSP PRN PO 10/04/24 22:30 Ondansetron HCl 4 mg Q4HP PRN IV 10/04/24 22:30 Acetaminophen 650 mg Q6HP PRN PO 10/04/24 22:30 Calcium Acetate 667 mg TIDWMEALS PO 10/05/24 18:00 10/08/24 12:34 667 MG Atorvastatin Calcium 80 mg HS PO 10/06/24 22:00 10/07/24 21:01 80 MG Bumetanide 12.5 mg/Miscellaneous 50 ml @ 2 mls/hr Q24H IV 10/06/24 14:30 10/07/24 17:43 2 MLS/HR Metolazone 5 mg DAILY PO 10/07/24 10:00 10/08/24 09:30 5 MG Enoxaparin Sodium 40 mg DAILY SC 10/07/24 13:15 10/08/24 09:29 40 MG Albumin Human 100 ml @ 100 mls/hr Q8H IV 10/08/24 10:30 10/09/24 03:29 10/08/24 12:34 100 MLS/HR Examination: GENERAL:Normal, HEENT:Normal, NECK:Normal, LUNGS:Normal, CVS:Normal, ABDOMEN:Normal, MSK:Normal, SKIN:Abnormal, NEURO:Normal, :Normal laboratory and microbiology Laboratory Tests 10/08/24 09:11 Test 10/08/24 09:11 Range/Units Serum Glucose 201 H 74-106 mg/dL Microbiology Date/Time Source Procedure Growth Status 10/05/24 10:05 Pleural Fluid Gram Stain - Final Resulted 10/05/24 10:05 Pleural Fluid Aerobic Culture - Preliminary Resulted Problem List/Assessment/Plan Problem List/Assessment/Plan LUIS- r/o Glomerular pathology Hypoalbuminemia likely due to nephrotic Syndrome, unknown etiology Right pleural effusion likely secondary to nephrotic syndrome Hyperphosphatemia Hyperlipidemia likely due to nephrotic syndrome (increased hepatic lipoprotein synthesis) Hypercoagulable state due to nephrotic syndrome Mona/lambda ratio decreased Hypokalemia Plan kidney biopsy results are pending Hematology consult Bumex drip and metolazone 5 mg p.o. Monitor daily weights and strict intake/output. Fluid and sodium restriction. Discontinue Solu-Medrol Cholecalciferol 4000 unit daily 60 mEq potassium case discussed with code status full code Addendum Patient seen and examined, plan discussed with resident. Agree with above, we will follow closely finished pulse steroids Plan discussed with: Patient ADAM IBANEZ October 08, 2024 15:49 SHREYAS MOISE MD October 08, 2024 19:39
[2024-10-08] MEDS: CHOLECALCIFEROL (VITD3) 1,000UNIT=25mCg TAB PO ONE (17:51)
[2024-10-09] VITALS (12 sets, daily range): BP systolic 97–108; BP diastolic 59–75; PULSE 62–74; RESP 16–20; TEMP 97.3–97.7; O2SAT 92–96
[2024-10-09 07:43] LABS: Basophils # (auto) 0 10 ^3/uL (0-0.2); Basophils % (auto) 0.1 % (0.0-2.0); Eosinophils # (auto) 0 10 ^3/uL (0-0.8); Hematocrit 34.1 % (41.0-53.0); Hemoglobin 11.3 g/dL (13.5-17.5); Lymphocytes # (auto) 2.8 10 ^3/uL (0.4-5.4); Lymphocytes % (auto) 11.8 % (10.0-50.0); Mean Corpuscular Hemoglobin 27.1 pg (28.0-32.0); Mean Corpuscular Hgb Conc. 33.1 g/dL (32.0-36.0); Monocytes # (auto) 2.9 10 ^3/uL (0-1.3); Monocytes % (auto) 12.4 % (0.0-12.0); Neutrophils # (auto) 17.7 10 ^3/uL (1.6-8.6); Neutrophils % (auto) 75.7 % (37.0-80.0); Nucleated Red Blood Cells % 0.1 %; Platelet Count (auto) 249 10^3/uL (140-450); Red Blood Cells 4.16 10^6/uL (4.5-5.90); Red Cell Distribution Width 15.7 % (11.8-14.3); White Blood Cell 23.3 10^3/uL (4.4-10.8)
[2024-10-09 07:55] LABS: Anion Gap 8 (5-15); Chloride 98 mmol/L (98-107); Sodium 141 mmol/L (136-145)
[2024-10-09 08:01] LABS: BUN/Creatinine Ratio 34.9 (10.0-20.0)
[2024-10-09 08:02] LABS: Blood Urea Nitrogen 65 mg/dL (9-23); Calcium 8.7 mg/dL (8.7-10.4); Carbon Dioxide 35 mmol/L (20-31); Glucose 132 mg/dL (74-106)
[2024-10-09] MEDS ORDERED: POTASSIUM CHL 20MEQ/100ML 100 ML IV SCH (09:00)
--- NOTE | 2024-10-09 09:04 | DVHPNRES ---
Progress Note Date Seen: October 09, 2024 Resident Creating Document: URIEL STEWART RESIDENT Has the PT tested + for MRSA If YES, has PT been informed?: No Subjective Review of Systems This is a 49-year-old male with past medical history of hyperlipidemia, who presented to the ED with chief complaint of shortness of breaths. The patient states that three days ago he started noticing bilateral lower extremity swelling that has been getting worse extending from bilateral foods all the way up to bilateral thighs. The patient also reports associated shortness of breaths and nonproductive cough. The patient also reports that the shortness of breath gets worse with the exertion and denies any similar episode before. Patient states that in the past he had one single episode of bilateral lower extremity swelling that improved by its own. Patient denies any heart failure, COPD, renal failure or any heart issues. Upon admission, initial WBC was 15.2, BNP showed an elevated creatinine at 1.36 and BUN 18. Urinalysis showed 3+ protein, 2+ blood and 1258 mg/dL of protein in 24 hours. Initial BNP was 51.28, EKG showed sinus tachycardia with no significant ST or T-wave abnormalities and troponins came back negative. Echocardiogram was ordered. Initial chest x-ray was showing severe large right-sided pleural effusion, so IR was consulted for right-sided thoracentesis and patient was admitted for further assessment and management. Patient seen and examined at bedside. Patient is alert and oriented in person, place and time. Potassium came back low today as well at 3.0 despite giving 60 mEq IV yesterday but can be expected due to aggressive IV diuretic drip. We will continue the patient on bumetanide drip, metolazone 5 mg daily and vitamin- D. We will already completed three doses of high-dose IV methylprednisolone and was discontinued yesterday. We are still waiting for protein electrophoresis and kidney biopsy for further characterization of the disease. Patient is still having significant bilateral lower extremity swelling but has improved compared to previous days. Patient has no additional concerns at this time. ROS: Constitutional: Denies weight loss, fever and chills. HEENT: Denies changes in vision and hearing. Respiratory: Denies shortness of breath and cough Cardiovascular: Denies chest discomfort or palpitations GI: Denies abdominal pain, nausea, vomiting and diarrhea. : Denies dysuria and urinary frequency. Musculoskeletal: Reports bilateral lower extremity swelling that has been slightly improving compared to admission. Denies myalgias and joint pain Skin: Denies rash and pruritus. Neurological: Denies dizziness, headache, vision or hearing problems Objective vital signs Vital Sign Date Time Temp Pulse Resp B/P (MAP) Pulse Ox O2 Delivery O2 Flow Rate FiO2 10/09/24 06:11 93 Nasal Cannula 2.0 10/09/24 06:11 28 10/09/24 04:44 97.5 70 20 103/61 (75) 97.5 Total Intake and Output 10/08/24 10/08/24 10/09/24 15:00 23:00 07:00 Intake Total 350 ml 408 ml 280 ml Output Total 1000 ml 2950 ml 2500 ml Balance -650 ml -2542 ml -2220 ml medications Current Medications Medications Dose Ordered Sig/Matthias Route Start Time Stop Time Status Last Admin Dose Admin Albuterol 2.5 mg Q6HPRN PRN NEB 10/04/24 22:30 Azithromycin 250 ml @ 125 mls/hr DAILY IV 10/05/24 10:00 10/08/24 09:30 125 MLS/HR Temazepam 15 mg QHSP PRN PO 10/04/24 22:30 Ondansetron HCl 4 mg Q4HP PRN IV 10/04/24 22:30 Acetaminophen 650 mg Q6HP PRN PO 10/04/24 22:30 Calcium Acetate 667 mg TIDWMEALS PO 10/05/24 18:00 10/09/24 07:55 667 MG Atorvastatin Calcium 80 mg HS PO 10/06/24 22:00 10/08/24 22:38 80 MG Bumetanide 12.5 mg/Miscellaneous 50 ml @ 2 mls/hr Q24H IV 10/06/24 14:30 10/08/24 19:08 2 MLS/HR Metolazone 5 mg DAILY PO 10/07/24 10:00 10/08/24 09:30 5 MG Enoxaparin Sodium 40 mg DAILY SC 10/07/24 13:15 10/08/24 09:29 40 MG Cholecalciferol 4,000 unit DAILY PO 10/09/24 10:00 Examination Physical Examination General: Patient alert and oriented in person, place and time. Patient following commands. HEENT: Normocephalic, atraumatic, moist mucous membranes Respiratory/pulmonary: There is decreased breath sounds on bilateral lungs but more marked in the right lung. Very mild crackles at this time, no wheezes. Cardiovascular: Normal heart sounds S1 and S2 with no associated murmurs Abdomen: Abdomen nondistended, there is mild pain to palpation in the epigastric region. No palpable masses at this time. Extremities: There is severe bilateral lower extremity 3+ pitting edema extending from the foot up to bilateral thighs. slightly improved compare to admission. Peripheral Pulses: Dorsalis pedis and posterior tibialis pulses bilateral are present but difficult to palpate due to significant edema. Skin: No rashes or pruritus, there is no sacral edema present at this time. Neurological: Intact cranial nerves with no focal neurologic deficits laboratory and microbiology Laboratory Tests 10/09/24 05:07 Test 10/09/24 05:07 Range/Units Serum Glucose 132 H 74-106 mg/dL Microbiology Date/Time Source Procedure Growth Status 10/05/24 10:05 Pleural Fluid Gram Stain - Final Resulted 10/05/24 10:05 Pleural Fluid Aerobic Culture - Preliminary Resulted Labs and/or images reviewed: Labs reviewed by me, Image(s) reviewed by me Problem List/Assessment/Plan Problem List/Assessment/Plan Assessment/plan Acute hypoxic respiratory failure likely due to massive right-sided pleural effusion Possible acute glomerulonephritis R/O Acute diastolic/systolic heart failure Leukocytosis -initial chest x-ray shows severe large right-sided pleural effusion -there is significant bilateral lower extremity 3+ pitting edema extending from bilateral foots all the way up to bilateral thighs. -currently on 2 L of oxygen through nasal cannula -initial BNP was 51.28 -EKG showed sinus tachycardia with no significant ST/T-waves abnormality -troponins came back negative -ordered echocardiogram -UA showed 3+ protein, 2+ blood, 1258 mg/dL proteinuria in 24 hour (non nephrotic range) -consulted nephrology for possible kidney biopsy (possible glomerulonephritis) -IR was consulted for right-sided thoracentesis which was performed today in the AM. -continue Bumex drip -continue metolazone 5 mg daily -Discontinue high dose IV steroids -Patient underwent kidney biopsy per IR on 10/06/24. -Pending kidney biopsy results -Pending serum protein electrophoresis results -Heme/onc consulted LUIS likely due to glomerular disease -creatinine 1.36, BUN 18 -consulted nephrology, possible need of kidney biopsy -ordered complement C3 and C4. Complement C3 is low but complement C4 is normal -ordered ANCA panel, negative -ordered HIV which came back negative and hepatitis panel came back negative as well. -antistreptolysin O titers were negative Dyslipidemia -ordered lipid panel which came back significantly elevated. -Continue atorvastatin 80mg daily. Plan discussed with Dr. Rojas Plan discussed with: Patient, Other (Nurse) My Orders My Orders Orders - URIEL STEWART RESIDENT Procedure Category Date Status Time Potassium Chl PHA 10/09/24 Logged 20meq/100ml 09:00 Addendum Addendum Addendum I was physically present for the martinez portions of the service provided to patient by THE RESIDENT. I have reviewed the documentation, discussed the case with resident and agree with the resident's documentation except as noted. Also the patient's clinical case was discussed with the patient's nurse. This medical document was created using an electronic medical record system with computerized dictation system. Although this document has been carefully reviewed, there might still be some phonetic and typographical errors. These areas are purely typographical due to imperfections of the software programs, and do not reflect any compromise in the patient's medical care. Late signature. Date of Service: October 09, 2024 Billing Provider: ELAINE ROJAS MD Common Visit Codes: [id number] INP/OBS CARE(HIGH) URIEL STEWART RESIDENT October 09, 2024 09:04 ELAINE ROJAS MD October 10, 2024 10:26
[2024-10-09] MEDS: CHOLECALCIFEROL (VITD3) 1,000UNIT=25mCg TAB PO SCH (09:55)
[2024-10-09 10:23] LABS: Magnesium 2.2 mg/dL (1.6-2.6)
[2024-10-09 10:24] LABS: Phosphorus 5.5 mg/dL (2.4-5.1)
[2024-10-09] MEDS ORDERED: POTASSIUM CHL 20MEQ/50ML 50 ML IV SCH (11:45)
--- NOTE | 2024-10-09 13:29 | DVH ---
EXAM: XY CHEST XRAY 1 VIEW Indication: Pain; RULE OUT PNEUMOTHORAX Technique: Single frontal view of the chest was obtained Comparison: XY CHEST PORTABLE on DOS: 10/05/24, XY CHEST XRAY 1 VIEW on DOS: 10/05/24, XY CHEST PORTABL E on DOS: 10/04/24 FINDINGS: Lines and Tubes: None Lungs: Pulmonary edema. Trace bilateral pleural effusions No pneumothorax. Cardiomediastinal contours: Unremarkable Bones: No acute osseous abnormality. IMPRESSION: Pulmonary edema and trace bilateral pleural effusions. No definite pneumothorax visualized
[2024-10-09] MEDS: POTASSIUM CHL 20 Meq TABLET PO ONE ×2 (13:56→15:45)
--- NOTE | 2024-10-09 15:30 | DVH ---
US BiLat Lower DVT HISTORY: ro DVT COMPARISON: None TECHNIQUE: Duplex doppler evaluation of the deep venous system of the lower extremity from the common femoral veins, superficial femoral vein, great saphenous vein, deep femoral vein, popliteal vein, an d calf veins, including color doppler and spectral/pulsed waveform analysis, was performed. FINDINGS: Right: - Common femoral vein: Compressible - Deep femoral vein: Compressible - Femoral vein: Compressible - Popliteal vein: Compressible - Posterior tibial vein: Waveforms present - Peroneal vein: Waveforms present - Other: Nothing Left: - Common femoral vein: Compressible - Deep femoral vein: Compressible - Femoral vein: Compressible - Popliteal vein: Compressible - Posterior tibial vein: Waveforms present - Peroneal vein: Waveforms present - Other: Nothing IMPRESSION: No right or left lower extremity deep venous thrombosis.
--- NOTE | 2024-10-09 15:40 | DVHPN2 ---
Progress Note Date Seen: October 09, 2024 Resident Creating Document: ADAM IBANEZ RESIDENT Has the PT tested + for MRSA If YES, has PT been informed?: No Medical Necessity Reason Pt with a Central, PICC or Fol: No The following are medically ne: Escoto Catheter Reason for escoto catheter: Strict I&O Subjective Review of Systems Patient is seen and examined at bedside currently on Bumex drip and metolazone, having good diuresis. Hypokalemia episode is high-dose diuretic induced for which we will monitor closely and replace as needed. Lower extremities are still very swollen, biopsy results are pending Chest x-ray showed pulmonary edema and trace bilateral pleural effusions, DVT ultrasound of lower extremities was unremarkable. Patient reports: No new complaints Changes from previous H/P or p: No Changes Objective vital signs Vital Sign Date Time Temp Pulse Resp B/P (MAP) Pulse Ox O2 Delivery O2 Flow Rate FiO2 10/09/24 12:53 97.7 70 16 100/63 (75) 93 97.7 10/09/24 06:11 Nasal Cannula 2.0 10/09/24 06:11 28 Total Intake and Output 10/08/24 10/08/24 10/09/24 15:00 23:00 07:00 Intake Total 350 ml 408 ml 280 ml Output Total 1000 ml 2950 ml 2500 ml Balance -650 ml -2542 ml -2220 ml medications Current Medications Medications Dose Ordered Sig/Matthias Route Start Time Stop Time Status Last Admin Dose Admin Azithromycin 250 ml @ 125 mls/hr DAILY IV 10/05/24 10:00 10/09/24 10:16 125 MLS/HR Temazepam 15 mg QHSP PRN PO 10/04/24 22:30 Ondansetron HCl 4 mg Q4HP PRN IV 10/04/24 22:30 Acetaminophen 650 mg Q6HP PRN PO 10/04/24 22:30 Calcium Acetate 667 mg TIDWMEALS PO 10/05/24 18:00 10/09/24 11:51 667 MG Atorvastatin Calcium 80 mg HS PO 10/06/24 22:00 10/08/24 22:38 80 MG Bumetanide 12.5 mg/Miscellaneous 50 ml @ 2 mls/hr Q24H IV 10/06/24 14:30 10/08/24 19:08 2 MLS/HR Metolazone 5 mg DAILY PO 10/07/24 10:00 10/09/24 10:15 5 MG Enoxaparin Sodium 40 mg DAILY SC 10/07/24 13:15 10/09/24 09:54 40 MG Cholecalciferol 4,000 unit DAILY PO 10/09/24 10:00 10/09/24 09:55 4,000 UNIT Potassium Chloride 100 ml @ 50 mls/hr Q2H IV 10/09/24 09:00 10/09/24 14:59 UNV Albumin Human 100 ml @ 100 mls/hr Q8H IV 10/09/24 11:30 10/10/24 04:29 Potassium Chloride 50 ml @ 25 mls/hr Q2H IV 10/09/24 11:45 10/09/24 17:44 Cancel Examination: GENERAL:Normal, HEENT:Normal, NECK:Normal, LUNGS:Abnormal, CVS:Normal, ABDOMEN:Normal, MSK:Normal, SKIN:Normal, NEURO:Normal, :Normal, Any Other System: laboratory and microbiology Laboratory Tests 10/09/24 05:07 Test 10/09/24 05:07 Range/Units Serum Glucose 132 H 74-106 mg/dL Microbiology Date/Time Source Procedure Growth Status 10/05/24 10:05 Pleural Fluid Gram Stain - Final Resulted 10/05/24 10:05 Pleural Fluid Aerobic Culture - Preliminary Resulted Problem List/Assessment/Plan Problem List/Assessment/Plan Assessment LUIS- r/o Glomerular pathology Hypoalbuminemia likely due to nephrotic Syndrome, unknown etiology Right pleural effusion likely secondary to nephrotic syndrome Hyperphosphatemia Hyperlipidemia likely due to nephrotic syndrome (increased hepatic lipoprotein synthesis) Hypercoagulable state due to nephrotic syndrome [place]/lambda ratio decreased Hypokalemia Plan kidney biopsy results are pending Continue albumin IV as prescribed given nephrotic symptoms to increase intravascular oncotic pressure and enhance diuretic effect Hematology consult, pending Continue Bumex drip and metolazone 5 mg p.o. 40 mg potassium effervescent p.o. given 40 mg potassium extended release given Monitor daily weights and strict intake/output. Cholecalciferol 4000 unit daily DVT ultrasound was order , patient is high risk for clot formation secondary to nephrotic syndrome . Results was unremarkable case discussed with code status full code Addendum Patient seen and examined, plan discussed with resident. Agree with above, we will follow closely Plan discussed with: Patient My Orders My Orders Orders - ADAM IBANEZ Procedure Category Date Status Time Cholecalciferol [facility] 10/09/24 In Process Tablet (Vitamin D3 10:00 Bilat Lower Dvt 10/09/24 Taken 14:09 ADAM IBANEZ October 09, 2024 15:40 SHREYAS MOISE MD October 09, 2024 16:10
[2024-10-09] MEDS: ALBUMIN 25% 100 ML IV SCH (19:02)
[2024-10-10] VITALS (8 sets, daily range): BP systolic 115–133; BP diastolic 63–76; PULSE 74–90; RESP 15–18; TEMP 98–98.5; O2SAT 90–95
[2024-10-10 08:04] LABS: Sodium 140 mmol/L (136-145)
[2024-10-10 08:05] LABS: Anion Gap 9 (5-15)
[2024-10-10 08:10] LABS: BUN/Creatinine Ratio 38.4 (10.0-20.0); Glucose 97 mg/dL (74-106)
[2024-10-10 08:14] LABS: Blood Urea Nitrogen 63 mg/dL (9-23); Carbon Dioxide 37 mmol/L (20-31); Chloride 94 mmol/L (98-107); Potassium 3.2 mmol/L (3.5-5.1)
[2024-10-10 10:14] LABS: Basophils # (auto) 0 10 ^3/uL (0-0.2); Basophils % (auto) 0.1 % (0.0-2.0); Eosinophils # (auto) 0.1 10 ^3/uL (0-0.8); Eosinophils % (auto) 0.3 % (0.0-7.0); Hematocrit 41.7 % (41.0-53.0); Hemoglobin 13.8 g/dL (13.5-17.5); Lymphocytes % (auto) 16.4 % (10.0-50.0); Mean Corpuscular Hemoglobin 27.3 pg (28.0-32.0); Mean Corpuscular Hgb Conc. 33.1 g/dL (32.0-36.0); Mean Corpuscular Volume 82.3 fL (80.0-100.0); Monocytes % (auto) 16.5 % (0.0-12.0); Neutrophils # (auto) 12.2 10 ^3/uL (1.6-8.6); Neutrophils % (auto) 66.7 % (37.0-80.0); Platelet Count (auto) 257 10^3/uL (140-450); Red Blood Cells 5.07 10^6/uL (4.5-5.90); Red Cell Distribution Width 15.4 % (11.8-14.3); White Blood Cell 18.3 10^3/uL (4.4-10.8)
[2024-10-10] MEDS ORDERED: HALOPERIDOL LACTATE 5 MG/ML INJ VIAL IM ONE (10:30)
[2024-10-10] MEDS: POTASSIUM CHL 20 Meq TABLET PO ONE (11:36)
[2024-10-10 12:06] LABS: Albumin 1.1 g/dL (2.9-4.4); Alpha-1-Globulin 0.2 g/dL (0.0-0.4); Alpha-2-Globulin 0.8 g/dL (0.4-1.0); Gamma Globulin 0.1 g/dL (0.4-1.8); Protein Total Serum 3.1 g/dL (6.0-8.5)
--- NOTE | 2024-10-10 13:37 | DVHPNRES ---
Progress Note Date Seen: October 10, 2024 Resident Creating Document: PERLITA ARTIS RESIDENT Has the PT tested + for MRSA If YES, has PT been informed?: No Medical Necessity Reason Pt with a Central, PICC or Fol: No Subjective Review of Systems Patient seen and examined at bedside. Patient is alert and oriented in person, place and time. Potassium came back low today as well at 3.2 but can be expected due to aggressive IV diuretic drip. We will continue the patient on bumetanide drip, metolazone 5 mg daily and vitamin-D. We will already completed three doses of high-dose IV methylprednisolone and was discontinued yesterday. We are still waiting for protein electrophoresis and kidney biopsy for further characterization of the disease. Patient is still having significant bilateral lower extremity swelling but has improved compared to previous days. Patient has no additional concerns at this time. Objective vital signs Vital Sign Date Time Temp Pulse Resp B/P (MAP) Pulse Ox O2 Delivery O2 Flow Rate FiO2 10/10/24 12:38 98.5 90 15 124/65 (84) 93 98.5 10/10/24 10:00 Room Air* 0 21 Total Intake and Output 10/09/24 10/09/24 10/10/24 15:00 23:00 07:00 Intake Total 100 ml 800 ml 300 ml Output Total 4100 ml 4110 ml Balance 100 ml -3300 ml -3810 ml medications Current Medications Medications Dose Ordered Sig/Matthias Route Start Time Stop Time Status Last Admin Dose Admin Azithromycin 250 ml @ 125 mls/hr DAILY IV 10/05/24 10:00 10/10/24 08:51 125 MLS/HR Temazepam 15 mg QHSP PRN PO 10/04/24 22:30 Ondansetron HCl 4 mg Q4HP PRN IV 10/04/24 22:30 Acetaminophen 650 mg Q6HP PRN PO 10/04/24 22:30 Calcium Acetate 667 mg TIDWMEALS PO 10/05/24 18:00 10/10/24 11:35 667 MG Atorvastatin Calcium 80 mg HS PO 10/06/24 22:00 10/09/24 21:56 80 MG Bumetanide 12.5 mg/Miscellaneous 50 ml @ 2 mls/hr Q24H IV 10/06/24 14:30 10/09/24 16:48 2 MLS/HR Metolazone 5 mg DAILY PO 10/07/24 10:00 10/10/24 08:51 5 MG Enoxaparin Sodium 40 mg DAILY SC 10/07/24 13:15 10/10/24 08:51 40 MG Cholecalciferol 4,000 unit DAILY PO 10/09/24 10:00 10/10/24 08:50 4,000 UNIT Potassium Chloride 100 ml @ 50 mls/hr Q2H IV 10/09/24 09:00 10/09/24 14:59 UNV Potassium Chloride 50 ml @ 25 mls/hr Q2H IV 10/09/24 11:45 10/09/24 17:44 Cancel Examination Physical Examination General: Patient alert and oriented in person, place and time. Patient following commands. HEENT: Normocephalic, atraumatic, moist mucous membranes Respiratory/pulmonary: There is decreased breath sounds on bilateral lungs but more marked in the right lung. Very mild crackles at this time, no wheezes. Cardiovascular: Normal heart sounds S1 and S2 with no associated murmurs Abdomen: Abdomen nondistended, there is mild pain to palpation in the epigastric region. No palpable masses at this time. Extremities: There is severe bilateral lower extremity 3+ pitting edema extending from the foot up to bilateral thighs. slightly improved compare to admission. Peripheral Pulses: Dorsalis pedis and posterior tibialis pulses bilateral are present but difficult to palpate due to significant edema. Skin: No rashes or pruritus, there is no sacral edema present at this time. Neurological: Intact cranial nerves with no focal neurologic deficits laboratory and microbiology Laboratory Tests 10/10/24 09:50 10/10/24 07:31 Test 10/10/24 07:31 Range/Units Serum Glucose 97 74-106 mg/dL Microbiology Date/Time Source Procedure Growth Status 10/05/24 10:05 Pleural Fluid Gram Stain - Final Complete 10/05/24 10:05 Pleural Fluid Aerobic Culture - Final Complete Labs and/or images reviewed: Labs reviewed by me, Image(s) reviewed by me Problem List/Assessment/Plan Problem List/Assessment/Plan Assessment/plan Acute hypoxic respiratory failure likely due to massive right-sided pleural effusion Possible acute glomerulonephritis R/O Acute diastolic/systolic heart failure Leukocytosis -initial chest x-ray shows severe large right-sided pleural effusion -there is significant bilateral lower extremity 3+ pitting edema extending from bilateral foots all the way up to bilateral thighs. -currently on 2 L of oxygen through nasal cannula -initial BNP was 51.28 -EKG showed sinus tachycardia with no significant ST/T-waves abnormality -troponins came back negative -ordered echocardiogram -UA showed 3+ protein, 2+ blood, 1258 mg/dL proteinuria in 24 hour (non nephrotic range) -consulted nephrology for possible kidney biopsy (possible glomerulonephritis) -IR was consulted for right-sided thoracentesis which was performed today in the AM. -continue Bumex drip -continue metolazone 5 mg daily -Discontinue high dose IV steroids -Patient underwent kidney biopsy per IR on 10/06/24. -Pending kidney biopsy results -Pending serum protein electrophoresis results -Heme/onc consulted LUIS likely due to glomerular disease -creatinine 1.36, BUN 18 -consulted nephrology, possible need of kidney biopsy -ordered complement C3 and C4. Complement C3 is low but complement C4 is normal -ordered ANCA panel, negative -ordered HIV which came back negative and hepatitis panel came back negative as well. -antistreptolysin O titers were negative Dyslipidemia -ordered lipid panel which came back significantly elevated. -Continue atorvastatin 80mg daily. Plan discussed with Dr. Rojas Plan discussed with: Patient, Other (RN) Addendum Addendum Addendum I was physically present for the martinez portions of the service provided to patient by THE RESIDENT. I have reviewed the documentation, discussed the case with resident and agree with the resident's documentation except as noted. Also the patient's clinical case was discussed with the patient's nurse. This medical document was created using an electronic medical record system with computerized dictation system. Although this document has been carefully reviewed, there might still be some phonetic and typographical errors. These areas are purely typographical due to imperfections of the software programs, and do not reflect any compromise in the patient's medical care. Late signature. Date of Service: October 10, 2024 Billing Provider: ELAINE ROJAS MD Common Visit Codes: [id number] INP/OBS CARE(HIGH) PERLITA ARTIS RESIDENT October 10, 2024 13:37 ELAINE ROJAS MD October 11, 2024 12:42
--- NOTE | 2024-10-10 15:29 | DVHPN2 ---
Progress Note Date Seen: October 10, 2024 Has the PT tested + for MRSA If YES, has PT been informed?: No Medical Necessity Reason Pt with a Central, PICC or Fol: No Subjective Patient reports: No new complaints, Feels better Review of Systems: HEENT:Normal, CVS:Normal, RESPIRATORY:Normal, GI:Normal, :Normal, MSK:Normal, NEURO:Normal Objective vital signs Vital Sign Date Time Temp Pulse Resp B/P (MAP) Pulse Ox O2 Delivery O2 Flow Rate FiO2 10/10/24 14:05 124/65 10/10/24 12:38 98.5 90 15 93 98.5 10/10/24 10:00 Room Air* 0 21 Total Intake and Output 10/09/24 10/09/24 10/10/24 15:00 23:00 07:00 Intake Total 100 ml 800 ml 300 ml Output Total 4100 ml 4110 ml Balance 100 ml -3300 ml -3810 ml medications Current Medications Medications Dose Ordered Sig/Matthias Route Start Time Stop Time Status Last Admin Dose Admin Azithromycin 250 ml @ 125 mls/hr DAILY IV 10/05/24 10:00 10/10/24 08:51 125 MLS/HR Temazepam 15 mg QHSP PRN PO 10/04/24 22:30 Ondansetron HCl 4 mg Q4HP PRN IV 10/04/24 22:30 Acetaminophen 650 mg Q6HP PRN PO 10/04/24 22:30 Calcium Acetate 667 mg TIDWMEALS PO 10/05/24 18:00 10/10/24 11:35 667 MG Atorvastatin Calcium 80 mg HS PO 10/06/24 22:00 10/09/24 21:56 80 MG Bumetanide 12.5 mg/Miscellaneous 50 ml @ 2 mls/hr Q24H IV 10/06/24 14:30 10/10/24 14:05 2 MLS/HR Metolazone 5 mg DAILY PO 10/07/24 10:00 10/10/24 08:51 5 MG Enoxaparin Sodium 40 mg DAILY SC 10/07/24 13:15 10/10/24 08:51 40 MG Cholecalciferol 4,000 unit DAILY PO 10/09/24 10:00 10/10/24 08:50 4,000 UNIT Potassium Chloride 100 ml @ 50 mls/hr Q2H IV 10/09/24 09:00 10/09/24 14:59 UNV Potassium Chloride 50 ml @ 25 mls/hr Q2H IV 10/09/24 11:45 10/09/24 17:44 Cancel Examination: MSK:Abnormal laboratory and microbiology Laboratory Tests 10/10/24 09:50 10/10/24 07:31 Test 10/10/24 07:31 Range/Units Serum Glucose 97 74-106 mg/dL Microbiology Date/Time Source Procedure Growth Status 10/05/24 10:05 Pleural Fluid Gram Stain - Final Complete 10/05/24 10:05 Pleural Fluid Aerobic Culture - Final Complete Problem List/Assessment/Plan Problem List/Assessment/Plan Assessment LUIS- r/o Glomerular pathology Hypoalbuminemia likely due to nephrotic Syndrome, unknown etiology Elevated lambda chains Hyperlipidemia likely due to nephrotic syndrome (increased hepatic lipoprotein synthesis) Hypercoagulable state due to nephrotic syndrome [place]/lambda ratio decreased Hypokalemia Plan kidney biopsy results are pending Continue diuretics hold Bumex drip switch to IV pushes continue metolazone Okay for discharge tomorrow patient able to walk freely and swelling better Patient advised follow-up in our office in 1 to 2 weeks after discharge for pathology results Status post pulse dose steroids Outpatient Heme-Onc evaluation Plan discussed with: Patient, Son My Orders My Orders Orders - SHREYAS MOISE MD Procedure Category Date Status Time Bumetanide Injection PHA 10/10/24 Transmitted (Bumex Injection) 18:00 Dietary Evaluation Review Comments: 1. Consider change to Renal Diet as needed given altered lab values 2. Noted kidney biopsy pending; will follow for results 3. Continue to encouarge good oral intakes >75% of meals 4. Pt w/ 3+ edema currently, monitor fluid status and wt trends Expected Outcomes/Goals: Improved renal function, adequate nutritional intake. SHREYAS MOISE MD October 10, 2024 15:29
[2024-10-10] MEDS: BUMETANIDE 2.5mg/10ml (0.25 mg/ml) INJ IV SCH (17:00)
[2024-10-11] VITALS (9 sets, daily range): BP systolic 102–118; BP diastolic 62–75; PULSE 75–85; RESP 16–19; TEMP 97.5–98.4; O2SAT 90–99
[2024-10-11 05:52] LABS: Basophils # (auto) 0 10 ^3/uL (0-0.2); Basophils % (auto) 0.1 % (0.0-2.0); Eosinophils # (auto) 0.2 10 ^3/uL (0-0.8); Eosinophils % (auto) 1.4 % (0.0-7.0); Hematocrit 43.5 % (41.0-53.0); Hemoglobin 14.4 g/dL (13.5-17.5); Lymphocytes # (auto) 5.1 10 ^3/uL (0.4-5.4); Lymphocytes % (auto) 29.5 % (10.0-50.0); Mean Corpuscular Hemoglobin 27.3 pg (28.0-32.0); Mean Corpuscular Hgb Conc. 33.2 g/dL (32.0-36.0); Mean Corpuscular Volume 82.2 fL (80.0-100.0); Monocytes # (auto) 2.6 10 ^3/uL (0-1.3); Monocytes % (auto) 15.4 % (0.0-12.0); Neutrophils # (auto) 9.2 10 ^3/uL (1.6-8.6); Neutrophils % (auto) 53.6 % (37.0-80.0); Nucleated Red Blood Cells % 0.1 %; Platelet Count (auto) 258 10^3/uL (140-450); Red Blood Cells 5.29 10^6/uL (4.5-5.90); Red Cell Distribution Width 15.4 % (11.8-14.3); White Blood Cell 17.2 10^3/uL (4.4-10.8)
[2024-10-11 06:06] LABS: Anion Gap 6 (5-15); Sodium 139 mmol/L (136-145)
[2024-10-11 06:12] LABS: BUN/Creatinine Ratio 33.1 (10.0-20.0)
[2024-10-11 06:17] LABS: Blood Urea Nitrogen 57 mg/dL (9-23); Calcium 8.5 mg/dL (8.7-10.4); Chloride 93 mmol/L (98-107); Glucose 111 mg/dL (74-106); Potassium 3.1 mmol/L (3.5-5.1)
[2024-10-11 06:20] LABS: Carbon Dioxide 40 mmol/L (20-31)
--- NOTE | 2024-10-11 08:01 | DVHPN2 ---
Subjective Continues to improve slowly; no dyspnea while at rest so was encouraged to walk; lower extremities edema continues to decrease Reviewed: Care Plan, H&P, Labs, Medications, Previous Orders, Radiology, Other (Consultation) Changes from previous H/P or p: Changes Objective Vitals Vital Signs Date Time Temp Pulse Resp B/P (MAP) Pulse Ox O2 Delivery O2 Flow Rate FiO2 10/11/24 05:53 117/65 10/11/24 05:06 98.1 82 18 90 98.1 10/10/24 20:00 Room Air* 0 21 Intake/Output Intake and Output 10/11/24 07:00 Intake Total 1200 ml Output Total 3550 ml Balance -2350 ml Intake Oral 1200 ml Output Urine Total 3550 ml # Bowel Movements 1 General Appearance: Alert, Oriented X3, Cooperative, No acute distress, Other (Morbidly obese/anasarca) HEENT: Atraumatic Lungs: Other (Scattered occasional crackles) Cardiovascular: Regular rate, Normal S1, Normal S2, No murmurs Abdomen: Normal bowel sounds, Soft, No tenderness Extremities: Other (Pitting edema; up to 2+ at some levels) Neuro: Normal speech, Cranial nerves 3-12 NL Psych/Mental Status: Mental status NL, Mood NL Medications Current Medications Medications Dose Ordered Sig/Matthias Route Start Time Stop Time Status Last Admin Dose Admin Azithromycin 250 ml @ 125 mls/hr DAILY IV 10/05/24 10:00 10/10/24 08:51 125 MLS/HR Temazepam 15 mg QHSP PRN PO 10/04/24 22:30 Ondansetron HCl 4 mg Q4HP PRN IV 10/04/24 22:30 Acetaminophen 650 mg Q6HP PRN PO 10/04/24 22:30 Calcium Acetate 667 mg TIDWMEALS PO 10/05/24 18:00 10/10/24 17:17 667 MG Atorvastatin Calcium 80 mg HS PO 10/06/24 22:00 10/10/24 21:05 80 MG Metolazone 5 mg DAILY PO 10/07/24 10:00 10/10/24 08:51 5 MG Enoxaparin Sodium 40 mg DAILY SC 10/07/24 13:15 10/10/24 08:51 40 MG Cholecalciferol 4,000 unit DAILY PO 10/09/24 10:00 10/10/24 08:50 4,000 UNIT Potassium Chloride 100 ml @ 50 mls/hr Q2H IV 10/09/24 09:00 10/09/24 14:59 UNV Potassium Chloride 50 ml @ 25 mls/hr Q2H IV 10/09/24 11:45 10/09/24 17:44 Cancel Bumetanide 2.5 mg BIDD IV 10/10/24 18:00 10/11/24 05:53 2.5 MG Laboratory Results Laboratory Tests 10/11/24 05:02 Chemistry Test 10/11/24 05:02 Calcium Level 8.5 mg/dL (8.7-10.4) L Urinalysis Test 10/04/24 21:40 10/05/24 12:05 Urine Hyaline Casts Few /lpf (0 - 2) Urine Granular Casts Few /lpf (0) Urine Mucus Few (None Seen) Urine Osmolality 262 mOsm/kg Urine Creatinine 99.69 mg/dL (30.0-125.0) Urine Protein/Creatinine Ratio 12.63 Urine Total Protein 1258.9 mg/dL (1-14) H Urine Color Colorless (Yellow) Urine Clarity Clear (Clear) Urine pH 6.5 (5.0-9.0) Urine Specific [place] 1.008 (1.001-1.035) Urine Protein 2+ (Negative) H Urine Ketones Negative (Negative) Urine Blood Trace /uL (Negative) H Urine Nitrite Negative (Negative) Urine Bilirubin Negative (Negative) Urine Urobilinogen Normal mg/dL (Negative) Urine Leukocyte Esterase Negative /uL (Negative) Urine RBC 1 /hpf (0 - 3) Urine Microscopic WBC 1 /HPF (0-3) Urine Squamous Epithelial Cells None seen /hpf (<5) Urine Bacteria None seen /hpf (None Seen) Urine Glucose Normal mg/dL (Normal) Microbiology Microbiology Date/Time Source Procedure Growth Status 10/05/24 10:05 Pleural Fluid Gram Stain - Final Complete 10/05/24 10:05 Pleural Fluid Aerobic Culture - Final Complete Labs and/or images reviewed: Labs reviewed by me, Image(s) reviewed by me Assessment/Plan Assessment/Plan Covering: Acute hypoxic respiratory failure due to pulmonary congestion secondary to hypoalbuminemia in the setting of suspected nephrotic syndrome LUIS; renal biopsy was done to rule out glomerular pathology; can not rule out vasomotor nephropathy; overall renal function is stable at this time Hypoalbuminemia likely due to suspected nephrotic syndrome, pending renal pathology Suspected nephrotic syndrome; unknown etiology; pending renal biopsy pathology Decreased [place]/Lambda ratio so suspected elevated Lambda chains; outpatient Hematology Oncology evaluation Hyperlipidemia most likely likely due to suspected nephrotic syndrome in the setting of increasing hepatic lipoprotein synthesis Suspected sepsis with leukocytosis due to suspected pneumonia; finished IV antibiotics Hypercoagulable state due to suspected nephrotic syndrome Hypokalemia due to above Morbid obesity Reviewed lab work Reviewed the imaging studies Lower extremities DVTs were ruled out Renal biopsy pathology results still pending Was on Bumex drip; switching from IV Bumex to oral Bumex for diuresis; will continue metolazone for diuresis also as per Nephrology Nephrology is following Status post pulses doses of steroids Continue oxygen therapy as indicated Ordered repeat chest x-ray to assess pulmonary congestion Ordered 6 minute walk test without oxygen then to do ABGs if satting below 92%; to assess the need of home oxygen therapy Counseled the patient on the importance of adopting healthy lifestyle with diet and exercise in order to lose weight To replace/correct electrolytes as indicated Continue statin Continue DVT prophylaxis Continue monitoring Possible discharge tomorrow if stable renal function and clinical status on oral diuresis; pending results of 6 minutes walk test and repeat chest x-ray Late Entry. This medical document was created using an electronic medical record system with computerized dictation system. Although this document has been carefully reviewed, there might still be some phonetic and typographical errors. These areas are purely typographical due to imperfections of the software programs, and do not reflect any compromise in the patient's medical care. Plan discussed with: Patient, Other (Nurse) Date of Service: October 11, 2024 Billing Provider: ELAINE ROJAS MD Common Visit Codes: [id number] INP/OBS CARE(HIGH) ELAINE ROJAS MD October 11, 2024 08:01
[2024-10-11] MEDS: POTASSIUM CHL 20 Meq TABLET PO SCH ×2 (12:04→18:29)
--- NOTE | 2024-10-11 13:03 | DVHPN2 ---
Progress Note Date Seen: October 11, 2024 Has the PT tested + for MRSA If YES, has PT been informed?: No Medical Necessity Reason Pt with a Central, PICC or Fol: No Subjective Patient reports: No new complaints, Feels better Review of Systems: HEENT:Normal, CVS:Normal, RESPIRATORY:Normal, GI:Normal, :Normal, MSK:Normal, NEURO:Normal Objective vital signs Vital Sign Date Time Temp Pulse Resp B/P (MAP) Pulse Ox O2 Delivery O2 Flow Rate FiO2 10/11/24 10:23 98 Nasal Cannula 2.0 10/11/24 10:23 28 10/11/24 09:43 113/65 10/11/24 08:42 98.2 85 16 98.2 Total Intake and Output 10/10/24 10/10/24 10/11/24 15:00 23:00 07:00 Intake Total 400 ml 800 ml Output Total 900 ml 1650 ml 1000 ml Balance -900 ml -1250 ml -200 ml medications Current Medications Medications Dose Ordered Sig/Matthias Route Start Time Stop Time Status Last Admin Dose Admin Temazepam 15 mg QHSP PRN PO 10/04/24 22:30 Ondansetron HCl 4 mg Q4HP PRN IV 10/04/24 22:30 Acetaminophen 650 mg Q6HP PRN PO 10/04/24 22:30 Calcium Acetate 667 mg TIDWMEALS PO 10/05/24 18:00 10/11/24 12:05 667 MG Atorvastatin Calcium 80 mg HS PO 10/06/24 22:00 10/10/24 21:05 80 MG Metolazone 5 mg DAILY PO 10/07/24 10:00 10/11/24 09:43 5 MG Enoxaparin Sodium 40 mg DAILY SC 10/07/24 13:15 10/11/24 09:44 40 MG Cholecalciferol 4,000 unit DAILY PO 10/09/24 10:00 10/11/24 09:43 4,000 UNIT Potassium Chloride 100 ml @ 50 mls/hr Q2H IV 10/09/24 09:00 10/09/24 14:59 UNV Potassium Chloride 50 ml @ 25 mls/hr Q2H IV 10/09/24 11:45 10/09/24 17:44 Cancel Potassium Chloride 40 meq Q2H PO 10/11/24 11:30 10/11/24 13:31 10/11/24 12:04 40 MEQ Bumetanide 2 mg BIDD PO 10/11/24 18:00 Examination: LUNGS:Abnormal, MSK:Abnormal laboratory and microbiology Laboratory Tests 10/11/24 05:02 Test 10/11/24 05:02 Range/Units Serum Glucose 111 H 74-106 mg/dL Microbiology Date/Time Source Procedure Growth Status 10/05/24 10:05 Pleural Fluid Gram Stain - Final Complete 10/05/24 10:05 Pleural Fluid Aerobic Culture - Final Complete Problem List/Assessment/Plan Problem List/Assessment/Plan Assessment LUIS- r/o Glomerular pathology Hypoalbuminemia likely due to nephrotic Syndrome, unknown etiology Elevated lambda chains Hyperlipidemia likely due to nephrotic syndrome (increased hepatic lipoprotein synthesis) Hypercoagulable state due to nephrotic syndrome [place]/lambda ratio decreased Hypokalemia Plan kidney biopsy results are pending Continue diuretics hold Bumex drip switch to po continue metolazone Patient advised follow-up in our office in 1 to 2 weeks after discharge for pathology results Status post pulse dose steroids Outpatient Heme-Onc evaluation Plan discussed with: Patient, Spouse My Orders My Orders Orders - SHREYAS MOISE MD Procedure Category Date Status Time Potassium Er Tablet PHA 10/11/24 In Process (Klor-Con Tablet) 11:30 Dietary Evaluation Review Comments: 1. Consider change to Renal Diet as needed given altered lab values 2. Noted kidney biopsy pending; will follow for results 3. Continue to encouarge good oral intakes >75% of meals 4. Pt w/ 3+ edema currently, monitor fluid status and wt trends Expected Outcomes/Goals: Improved renal function, adequate nutritional intake. SHREYAS MOISE MD October 11, 2024 13:03
[2024-10-11] MEDS: BUMETANIDE 1 MG TAB PO SCH (18:06)
--- NOTE | 2024-10-11 19:06 | DVH ---
CHEST RADIOGRAPH Indication: To follow up on pulmonary congestion. Thank You! Technique: Single frontal view of the chest was obtained Comparison: XY CHEST XRAY 1 VIEW on DOS: 10/09/24, XY CHEST PORTABLE on DOS: 10/05/24, XY CHEST XRAY 1 V IEW on DOS: 10/05/24 FINDINGS: Lines and Tubes: None Lungs: No focal consolidation. Pleura: No effusion. No pneumothorax. Cardiomediastinal contours: Unremarkable Bones: No acute osseous abnormality. IMPRESSION: 1. No acute cardiopulmonary disease.
[2024-10-12] VITALS (8 sets, daily range): BP systolic 79–136; BP diastolic 38–84; PULSE 59–92; RESP 17–19; TEMP 97.5–98.2; O2SAT 92–99
[2024-10-12 07:02] LABS: Basophils # (auto) 0 10 ^3/uL (0-0.2); Basophils % (auto) 0.2 % (0.0-2.0); Eosinophils # (auto) 0.3 10 ^3/uL (0-0.8); Eosinophils % (auto) 1.8 % (0.0-7.0); Hematocrit 48.2 % (41.0-53.0); Hemoglobin 15.9 g/dL (13.5-17.5); Lymphocytes # (auto) 5.3 10 ^3/uL (0.4-5.4); Lymphocytes % (auto) 28.2 % (10.0-50.0); Mean Corpuscular Hemoglobin 27.3 pg (28.0-32.0); Mean Corpuscular Volume 82.8 fL (80.0-100.0); Monocytes # (auto) 2.3 10 ^3/uL (0-1.3); Neutrophils # (auto) 10.9 10 ^3/uL (1.6-8.6); Neutrophils % (auto) 57.8 % (37.0-80.0); Nucleated Red Blood Cells % 0.2 %; Platelet Count (auto) 294 10^3/uL (140-450); Red Blood Cells 5.83 10^6/uL (4.5-5.90); Red Cell Distribution Width 15.2 % (11.8-14.3); White Blood Cell 18.9 10^3/uL (4.4-10.8)
[2024-10-12 07:12] LABS: Anion Gap 4 (5-15)
[2024-10-12 07:18] LABS: BUN/Creatinine Ratio 26.2 (10.0-20.0)
[2024-10-12 07:26] LABS: Blood Urea Nitrogen 49 mg/dL (9-23); Calcium 8.2 mg/dL (8.7-10.4); Carbon Dioxide 38 mmol/L (20-31); Chloride 94 mmol/L (98-107); Glucose 114 mg/dL (74-106); Potassium 3.5 mmol/L (3.5-5.1); Sodium 136 mmol/L (136-145)
--- NOTE | 2024-10-12 16:21 | DVHPN2 ---
Progress Note Date Seen: October 12, 2024 Resident Creating Document: URIEL STEWART RESIDENT Has the PT tested + for MRSA If YES, has PT been informed?: No Medical Necessity Reason Pt with a Central, PICC or Fol: No Subjective Review of Systems Patient seen and examined at bedside. Patient states that he is feeling much better compared to admission. Upon my examination bilateral lower extremity pedal edema is mostly resolved at this time. Patient is currently on bumetanide 2 mg b.i.d. p.o., metolazone 5 mg daily. Kidney biopsy results were still pending but apparently according to last call performed to pathology Department, they gave a preliminary report of possible amyloidosis but further workup has to be done and will be sent out to [facility]. Patient needs to follow up with heme/Onc as an outpatient to rule out any form of myeloma/possible malignancy. Extensive discussion was done at bedside with patient and which both understand. From Nephrology standpoint patient might be discharged home, we will recommend to discharge on bumetanide 2 mg b.i.d., potassium 40 mEq daily and metolazone 5 mg daily. Patient has no further complaints at this time and is feeling well overall. ROS Constitutional: Denies weight loss, fever and chills. HEENT: Denies changes in vision and hearing. Respiratory: Denies shortness of breath and cough Cardiovascular: Denies chest discomfort or palpitations GI: Denies abdominal pain, nausea, vomiting and diarrhea. : Denies dysuria and urinary frequency. Musculoskeletal: Denies myalgias and joint pain Skin: Denies rash and pruritus. Neurological: Denies dizziness, headache, vision or hearing problems Objective vital signs Vital Sign Date Time Temp Pulse Resp B/P (MAP) Pulse Ox O2 Delivery O2 Flow Rate FiO2 10/12/24 13:12 97.7 92 18 116/71 (86) 92 97.7 10/12/24 09:56 Nasal Cannula 2.0 10/12/24 09:56 28 Total Intake and Output 10/11/24 10/11/24 10/12/24 15:00 23:00 07:00 Intake Total 990 ml 800 ml Output Total 2400 ml Balance -1410 ml 800 ml medications Current Medications Medications Dose Ordered Sig/Matthias Route Start Time Stop Time Status Last Admin Dose Admin Ondansetron HCl 4 mg Q4HP PRN IV 10/04/24 22:30 Acetaminophen 650 mg Q6HP PRN PO 10/04/24 22:30 Calcium Acetate 667 mg TIDWMEALS PO 10/05/24 18:00 10/11/24 12:05 667 MG Atorvastatin Calcium 80 mg HS PO 10/06/24 22:00 10/11/24 21:12 80 MG Metolazone 5 mg DAILY PO 10/07/24 10:00 10/12/24 09:21 5 MG Enoxaparin Sodium 40 mg DAILY SC 10/07/24 13:15 10/12/24 09:22 40 MG Cholecalciferol 4,000 unit DAILY PO 10/09/24 10:00 10/12/24 09:22 4,000 UNIT Potassium Chloride 100 ml @ 50 mls/hr Q2H IV 10/09/24 09:00 10/09/24 14:59 UNV Potassium Chloride 50 ml @ 25 mls/hr Q2H IV 10/09/24 11:45 10/09/24 17:44 Cancel Bumetanide 2 mg BIDD PO 10/11/24 18:00 10/12/24 05:48 2 MG Examination Physical Examination General: Patient alert and oriented in person, place and time. Patient following commands. HEENT: Normocephalic, atraumatic, moist mucous membranes Respiratory/pulmonary: Bilateral lung sounds grossly clear, there is no evident crackles or wheezes at this time. Cardiovascular: Normal heart sounds S1 and S2 with no associated murmurs Abdomen: Abdomen nondistended, there is mild pain to palpation in the epigastric region. No palpable masses at this time. Extremities: There very minimal pedal edema at this time, almost completely resolved by now. Peripheral Pulses: Dorsalis pedis and posterior tibialis pulses bilateral are present but difficult to palpate due to significant edema. Skin: No rashes or pruritus, there is no sacral edema present at this time. Neurological: Intact cranial nerves with no focal neurologic deficits laboratory and microbiology Laboratory Tests 10/12/24 06:31 Test 10/12/24 06:31 Range/Units Serum Glucose 114 H 74-106 mg/dL Microbiology Date/Time Source Procedure Growth Status 10/05/24 10:05 Pleural Fluid Gram Stain - Final Complete 10/05/24 10:05 Pleural Fluid Aerobic Culture - Final Complete Problem List/Assessment/Plan Problem List/Assessment/Plan Assessment/plan LUIS -+nephrotic syndrome--awaiting final biopsy results/ Hypoalbuminemia likely due to nephrotic Syndrome, Possible myeloma, R/O malignancy Right pleural effusion likely secondary to nephrotic syndrome Hyperphosphatemia Hyperlipidemia likely due to nephrotic syndrome (increased hepatic lipoprotein synthesis) Hypercoagulable state due to nephrotic syndrome [place]/lambda ratio decreased Hypokalemia Plan -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 Tissue we will be sent to [facility] for amyloid typing by mass spectrometry. -continue bumetanide 2 mg b.i.d. -continue metolazone 5 mg daily -upon discharge continue on potassium 40 mEq daily -bilateral lower extremity almost completely resolved. -patient needs to follow up with Heme-Onc as an outpatient to rule out possible myeloma/malignancy -continue vitamin-D as well. Goals of care discussed with the patient and at bedside for >25min, FULL CODE Plan discussed with Dr. Lott Addendum Patient seen and examined, plan discussed with resident. Agree with above, we will follow closely Plan discussed with: Patient, Spouse My Orders My Orders Orders - URIEL STEWART Procedure Category Date Status Time Urine Sodium LAB 10/12/24 Logged 10:21 Dietary Evaluation Review Comments: 1. Consider change to Renal Diet as needed given altered lab values 2. Noted kidney biopsy pending; will follow for results 3. Continue to encouarge good oral intakes >75% of meals 4. Pt w/ 3+ edema currently, monitor fluid status and wt trends Expected Outcomes/Goals: Improved renal function, adequate nutritional intake. URIEL STEWART RESIDENT October 12, 2024 16:21 SHREYAS LOTT MD October 12, 2024 18:23
[2024-10-12] MEDS ORDERED: METO5TAB5 PO (17:42)
[2024-10-12] MEDS ORDERED: BUM1T PO (17:42)
[2024-10-12] MEDS ORDERED: ACET-1882 PO (17:42)
[2024-10-12] MEDS ORDERED: ATOR20TA50 PO (17:42)
--- NOTE | 2024-10-12 18:00 | DVHDSRES ---
Discharge Summary Date of Admission Resident Creating Document: JOEY AbbyURIEL RESIDENT Oct 04, 2024 at 22:28 Date of Discharge: October 12, 2024 Admitting Diagnosis Shortness of breath Labs/Diagnostic Data: PATIENT: SHILA MARTINEZ ACCT: [id number] UNIT: [id number] : 1975 LOC: [facility] ROOM / BED: [address] [place] [address] AGE / SEX: 49 / M ADM STATUS: ADM IN SERVICE 1422 ORDERING PHYSICIAN: ELAINE ROJAS MD PROCEDURE(s): CXR1 - CHEST XRAY 1 VIEW REASON: To follow up on pulmonary congestion. Thank You! ORDER NUMBER(s): [id number], ACCESSION NUMBER(s): [id number] CHEST RADIOGRAPH Indication: To follow up on pulmonary congestion. Thank You! Technique: Single frontal view of the chest was obtained Comparison: XY CHEST XRAY 1 VIEW on DOS: 10/09/24, XY CHEST PORTABLE on DOS: 10/05/24, XY CHEST XRAY 1 VIEW on DOS: 10/05/24 FINDINGS: Lines and Tubes: None Lungs: No focal consolidation. Pleura: No effusion. No pneumothorax. Cardiomediastinal contours: Unremarkable Bones: No acute osseous abnormality. IMPRESSION: 1. No acute cardiopulmonary disease. ATED BY: OSCAR LOPEZ Jr. DO DICTATED DATE/TIME: 10/11/24 190 PATIENT: SHILA MARTINEZ ACCT: [id number] UNIT: [id number] : 1975 LOC: [facility] ROOM / BED: [address] [place] [address] AGE / SEX: 49 / M ADM STATUS: ADM IN SERVICE 1409 ORDERING PHYSICIAN: ADAM IBANEZ PROCEDURE(s): BLDVT - BiLat Lower DVT REASON: ro DVT ORDER NUMBER(s): [id number], ACCESSION NUMBER(s): [id number] US BiLat Lower DVT HISTORY: ro DVT COMPARISON: None TECHNIQUE: Duplex doppler evaluation of the deep venous system of the lower extremity from the common femoral veins, superficial femoral vein, great saphenous vein, deep femoral vein, popliteal vein, and calf veins, including color doppler and spectral/pulsed waveform analysis, was performed. FINDINGS: Right: - Common femoral vein: Compressible - Deep femoral vein: Compressible - Femoral vein: Compressible - Popliteal vein: Compressible - Posterior tibial vein: Waveforms present - Peroneal vein: Waveforms present - Other: Nothing Left: - Common femoral vein: Compressible - Deep femoral vein: Compressible - Femoral vein: Compressible - Popliteal vein: Compressible - Posterior tibial vein: Waveforms present - Peroneal vein: Waveforms present - Other: Nothing IMPRESSION: No right or left lower extremity deep venous thrombosis. ATED BY: BASIL MOSLEY MD DICTATED DATE/TIME: 10/09/24 1528Signed PATIENT: SHILA MARTINEZ ACCT: [id number] UNIT: [id number] : 1975 LOC: [facility] ROOM / BED: [address] [place] [address] AGE / SEX: 49 / M ADM STATUS: ADM IN SERVICE 1248 ORDERING PHYSICIAN: SHREYAS MOISE MD PROCEDURE(s): CXR1 - CHEST XRAY 1 VIEW REASON: RULE OUT PNEUMOTHORAX ORDER NUMBER(s): [id number], ACCESSION NUMBER(s): [id number] EXAM: XY CHEST XRAY 1 VIEW Indication: Pain; RULE OUT PNEUMOTHORAX Technique: Single frontal view of the chest was obtained Comparison: XY CHEST PORTABLE on DOS: 10/05/24, XY CHEST XRAY 1 VIEW on DOS: 10/05/24, XY CHEST PORTABLE on DOS: 10/04/24 FINDINGS: Lines and Tubes: None Lungs: Pulmonary edema. Trace bilateral pleural effusions No pneumothorax. Cardiomediastinal contours: Unremarkable Bones: No acute osseous abnormality. IMPRESSION: Pulmonary edema and trace bilateral pleural effusions. No definite pneumothorax visualized ATED BY: JESE BARBA MD DICTATED DATE/TIME: 10/09/24 1327 PATIENT: SHILA MARTINEZ ACCT: [id number] UNIT: [id number] : 1975 LOC: [facility] ROOM / BED: [address] [place] [address] AGE / SEX: 49 / M ADM STATUS: ADM IN SERVICE 0646 ORDERING PHYSICIAN: BASIL MOSLEY MD PROCEDURE(s): CHSTU - CHEST ULTRASOUND REASON: FLUID CHECK FOR POSSIBLE THORACENTESIS ORDER NUMBER(s): [id number], ACCESSION NUMBER(s): [id number] Bilateral Chest Sonogram Date: 10/07/2024 07:28 AM Clinical history: FLUID CHECK FOR POSSIBLE THORACENTESIS Findings: Limited sonographic evaluation of the right and left chest was performed to localize and claribel fluid for thoracentesis. There is a small pleural effusion. IMPRESSION: Small bilateral pleural effusions, too small for thoracentesis. END IMPRESSION: ATED BY: KRISTAL COLUNGA MD DICTATED DATE/TIME: 10/07/24816 PATIENT: SHILA MARTINEZ ACCT: [id number] UNIT: [id number] : 1975 LOC: [facility] ROOM / BED: [address] [place] [address] AGE / SEX: 49 / M ADM STATUS: ADM IN SERVICE 0844 ORDERING PHYSICIAN: URIEL STEWART PROCEDURE(s): THOUS - US GUIDANCE FOR NEEDLE PLACEME REASON: KIDNEY BIOPSY ORDER NUMBER(s): [id number], ACCESSION NUMBER(s): [id number] US US GUIDANCE FOR NEEDLE PLACEME, HISTORY: KIDNEY BIOPSY PROCEDURE: Informed consent was obtained. Limited ultrasound of the right kidney was obtained. The overlying skin was prepped with chlorhexidine which was allowed to dry and draped in the usual sterile fashion. Time out was performed. The skin and soft tissue were infiltrated with 1% lidocaine, and IV sedation was administered. Under real-time ultrasound guidance, 1 biopsy specimen was obtained using [facility] 18 [facility] core biopsy needle; these were given to the electronics mechanic apprentice in attendance. Post biopsy scan was performed. No immediate complication was noted. SEDATION: Dr. Bull Mosley was personally responsible for the administration of moderate sedation during the procedure performed, including the use of an independent trained observer who had no other duties during the procedure. The drugs utilized were IV fentanyl and versed (see nursing log for details). The total time of supervision by the attending physician was approximately 30 minutes. FINDINGS: Limited intraprocedural ultrasound demonstrates biopsy needle within the renal cortex of right kidney. Small post procedural hematoma is noted. IMPRESSION: Ultrasound biopsy of the right kidney. Pathology results pending. ATED BY: BASIL MOSLEY MD DICTATED DATE/TIME: 10/06/24 1050 PATIENT: SHILA MARTINEZ ACCT: [id number] UNIT: [id number] : 1975 LOC: [facility] ROOM / BED: [facility] / AGE / SEX: 49 / M ADM STATUS: ADM IN SERVICE 1034 ORDERING PHYSICIAN: BASIL MOSLEY MD PROCEDURE(s): CXRP - CHEST PORTABLE REASON: REPEAT FOR POSSIBLE PNEUMOTHORAX ORDER NUMBER(s): [id number], ACCESSION NUMBER(s): [id number] INDICATION: REPEAT FOR POSSIBLE PNEUMOTHORAX TECHNIQUE: Single frontal view of the chest was obtained COMPARISON: XY CHEST XRAY 1 VIEW on DOS: 10/05/24, XY CHEST PORTABLE on DOS: 10/04/24, XY CHEST XRAY 1 VIEW on DOS: 10/05/24 FINDINGS: Lines and Tubes: None Lungs: No focal consolidation. Pleura: Small right pleural effusion. No pneumothorax. Cardiomediastinal contours: Cardiomegaly. Bones: No acute osseous abnormality. IMPRESSION: Cardiomegaly with mild CHF. No pneumothorax status post thoracentesis ATED BY: KRISTAL COLUNGA MD DICTATED DATE/TIME: 10/05/24 1203 PATIENT: SHILA MARTINEZ ACCT: [id number] UNIT: [id number] : 1975 [facility]: [facility]GE / SEX: 49 / M ADM STATUS: ADM IN SERVICE 0952 ORDERING PHYSICIAN: EKTA MENON PROCEDURE(s): CXR1 - CHEST XRAY 1 VIEW REASON: POST THORACENTESIS ORDER NUMBER(s): [id number], ACCESSION NUMBER(s): [id number] CHEST RADIOGRAPH Indication: POST THORACENTESIS Technique: Single frontal view of the chest was obtained Comparison: XY CHEST PORTABLE on DOS: 10/04/24 FINDINGS: Lines and Tubes: None Lungs: No focal consolidation. Pleura: Small right pleural effusion. No pneumothorax. Cardiomediastinal contours: Cardiomegaly. Bones: No acute osseous abnormality. IMPRESSION: Cardiomegaly with mild CHF. No pneumothorax status post thoracentesis ATED BY: KRISTAL COLUNGA MD DICTATED DATE/TIME: 10/05/24 1111 PATIENT: SHILA MARTINEZ ACCT: [id number] UNIT: [id number] : 1975 LOC: [facility] / SEX: 49 / M ADM STATUS: ADM IN SERVICE 0925 ORDERING PHYSICIAN: ADAM IBANEZ PROCEDURE(s): KIDUS - KIDNEY REASON: ckd ORDER NUMBER(s): [id number], ACCESSION NUMBER(s): [id number] INDICATION: ckd TECHNIQUE: Multiple real-time sonographic images of the kidneys and bladder were obtained. COMPARISON: None FINDINGS: The right kidney measures 12 cm in length, which is normal in size. There is normal echogenicity of the right kidney. No hydronephrosis. The left kidney measures 11 cm in length, which is normal in size. There is normal echogenicity of the left kidney. No hydronephrosis. No large intraluminal masses are seen in the bladder. IMPRESSION: 1. Normal sonographic appearance of the kidneys. No hydronephrosis. ATED BY: KRISTAL COLUNGA MD DICTATED DATE/TIME: 10/05/24 1115 PATIENT: SHILA MARTINEZ ACCT: [id number] UNIT: [id number] : 1975 LOC: [facility] / SEX: 49 / M ADM STATUS: ADM IN SERVICE 0000 ORDERING PHYSICIAN: EKTA MENON PROCEDURE(s): THORA - THORACENTESIS REASON: THORACENTESIS ORDER NUMBER(s): [id number], ACCESSION NUMBER(s): [id number] PROCEDURE: ULTRASOUND GUIDED THORACENTESIS USING TEMPORARY CATHETER HISTORY: THORACENTESIS DOCUMENTATION: Informed consent was obtained and a procedural time out was performed. FINDINGS: The risks and benefits of the procedure including bleeding, infection and pneumothorax were explained to the patient and written informed consent obtained. Optimal site for puncture long the right posterior chest wall was determined using real-time ultrasound and the region sterilized. Local anesthesia was instilled. A 5 Indonesian catheter was then advanced into the pleural space and 1.5 liters of straw colored fluid was removed. The patient tolerated the procedure well. IMPRESSION: Ultrasound guided right thoracentesis. Procedure by Dr. Mosley ATED BY: KRISTAL COLUNGA MD DICTATED DATE/TIME: 10/05/24 1214 PATIENT: SHILA MARTINEZ ACCT: [id number] UNIT: [id number] : 1975 LOC: [facility] ROOM / BED: [address] [place] [address] AGE / SEX: 49 / M ADM STATUS: ADM IN SERVICE 27 ORDERING PHYSICIAN: EKTA MENON PROCEDURE(s): CX2CT - CHEST WITHOUT CONTRAST REASON: SOB ORDER NUMBER(s): [id number], ACCESSION NUMBER(s): [id number] CT Chest without intravenous contrast INDICATION: SOB TECHNIQUE: Multidetector spiral CT of the chest was performed from the lung apices to the upper abdomen. Axial, coronal and sagittal multiplanar reformats were performed. Radiation Dose : 1. Chest: CTDI volume is 24.84 mGy. Dose-length product is 879.3 mGy*cm The dose indicators for CT are the volume Computed Tomography (CT) Dose Index (CTDIvol) and the Dose Length Product (DLP), and are measured in units of mGy and mGy-cm, respectively. These indicators are not patient dose, but values generated from the CT scanner acquisition factors. The report includes radiation exposure data for exposures received during this examination. Comparison: None Findings: Lower neck: Within normal limits Lungs: Within normal limits Heart/Vascular Structures: Small anterior pericardial effusion. Lymph Nodes: No adenopathy Pleura: Large right-sided pleural effusion with adjacent compressive atelectasis. Small left-sided pleural effusion. Musculoskeletal: Within normal limits Body wall: Diffuse anasarca. Upper abdomen: Within normal limits IMPRESSION: 1. Large right-sided pleural effusion with adjacent compressive atelectasis. Small left-sided pleural effusion. Diffuse anasarca. ATED BY: KARLEE JARA DO DICTATED DATE/TIME: 10/05/2418 PATIENT: SHILA MARTINEZ ACCT: [id number] UNIT: [id number] : 1975 LOC: ER ROOM / BED: / AGE / SEX: 49 / M ADM STATUS: REG ER SERVICE 655 ORDERING PHYSICIAN: VENUS COSME PROCEDURE(s): CXRP - CHEST PORTABLE REASON: sob ORDER NUMBER(s): [id number], ACCESSION NUMBER(s): [id number] CHEST RADIOGRAPH Indication: sob Technique: Single frontal view of the chest was obtained Comparison: None FINDINGS: Lines and Tubes: None Lungs: Large right pleural effusion Pleura: Large right pleural effusion No pneumothorax. Cardiomediastinal contours: Unremarkable Bones: No acute osseous abnormality. IMPRESSION: 1. Large right pleural effusion. HS:Y ATED BY: OSCAR LPOEZ Jr., DO DICTATED DATE/TIME: 10/04/241944 Laboratory Results Test 10/12/24 06:31 10/09/24 05:07 10/07/24 09:32 10/05/24 13:35 White Blood Count 18.9 10^3/uL (4.4-10.8) Red Blood Count 5.83 10^6/uL (4.5-5.90) Hemoglobin 15.9 g/dL (13.5-17.5) Hematocrit 48.2 % (41.0-53.0) Mean Corpuscular Volume 82.8 fL (80.0-100.0) Mean Corpuscular Hemoglobin 27.3 pg (28.0-32.0) Mean Corpuscular Hemoglobin Concent 33.0 g/dL (32.0-36.0) Red Cell Distribution Width 15.2 % (11.8-14.3) Platelet Count 294 10^3/uL (140-450) Mean Platelet Volume 10.5 fL (6.9-10.8) Neutrophils (%) (Auto) 57.8 % (37.0-80.0) Lymphocytes (%) (Auto) 28.2 % (10.0-50.0) Monocytes (%) (Auto) 12.0 % (0.0-12.0) Eosinophils (%) (Auto) 1.8 % (0.0-7.0) Basophils (%) (Auto) 0.2 % (0.0-2.0) Neutrophils # (Auto) 10.9 10 ^3/uL (1.6-8.6) Lymphocytes # (Auto) 5.3 10 ^3/uL (0.4-5.4) Monocytes # (Auto) 2.3 10 ^3/uL (0-1.3) Eosinophils # (Auto) 0.3 10 ^3/uL (0-0.8) Basophils # (Auto) 0 10 ^3/uL (0-0.2) Nucleated Red Blood Cells 0.2 % Sodium Level 136 mmol/L (136-145) Potassium Level 3.5 mmol/L (3.5-5.1) Chloride Level 94 mmol/L (98-107) Carbon Dioxide Level 38 mmol/L (20-31) Anion Gap 4 (5-15) Blood Urea Nitrogen 49 mg/dL (9-23) Creatinine 1.87 mg/dL (0.700-1.30) Glomerular Filtration Rate Calc 44 mL/min (>90) BUN/Creatinine Ratio 26.2 (10.0-20.0) Serum Glucose 114 mg/dL (74-106) Calcium Level 8.2 mg/dL (8.7-10.4) Phosphorus Level 5.5 mg/dL (2.4-5.1) Magnesium Level 2.2 mg/dL (1.6-2.6) Lactate Dehydrogenase 285 U/L (120-246) Prothrombin Time 11.4 sec (9.3-11.8) Prothrombin Time INR 1.08 (0.9-1.15) Activated Partial Thromboplast Time 34.7 SEC (24.5-34.5) Test 10/05/24 12:05 10/05/24 11:35 10/05/24 10:05 10/05/24 06:47 Urine Color Colorless (Yellow) Urine Clarity Clear (Clear) Urine pH 6.5 (5.0-9.0) Urine Specific [place] 1.008 (1.001-1.035) Urine Protein 2+ (Negative) Urine Ketones Negative (Negative) Urine Blood Trace /uL (Negative) Urine Nitrite Negative (Negative) Urine Bilirubin Negative (Negative) Urine Urobilinogen Normal mg/dL (Negative) Urine Leukocyte Esterase Negative /uL (Negative) Urine RBC 1 /hpf (0 - 3) Urine Microscopic WBC 1 /HPF (0-3) Urine Squamous Epithelial Cells None seen /hpf (<5) Urine Bacteria None seen /hpf (None Seen) Urine Glucose Normal mg/dL (Normal) Serum Immunoglobulin G 100 mg/dL (603-1613) Total Protein 3.1 g/dL (6.0-8.5) Albumin 1.1 g/dL (2.9-4.4) Globulin (PEP) 2.0 g/dL (2.2-3.9) Albumin/Globulin Ratio 0.6 (0.7-1.7) Vfhoz-9-Atrtpozzg 0.2 g/dL (0.0-0.4) Tyqtc-4-Agmnipvaq 0.8 g/dL (0.4-1.0) Beta Globulins 0.9 g/dL (0.7-1.3) Gamma Globulins 0.1 g/dL (0.4-1.8) Protein Electrophoresis M-Hardeep 0.4 g/dL (Not Observed) Protein Electrophoresis Note Comment (.) Immunoglobulin A 260 mg/dL (90-386) Immunoglobulin M 34 mg/dL (20-172) Serum Immunofixation Comment (.) Anti-Nuclear Antibody Comment Comment (.) Cytoplasmic ANCA (c-ANCA) Antibody <1:20 titer (Neg:<1:20) Atypical p-ANCA <1:20 titer (Neg:<1:20) Perinuclear ANCA (p-ANCA) Antibody <1:20 titer (Neg:<1:20) ADRIÁN-1 Antibody <0.2 AI (0.0-0.9) SS-A/Ro Antibody <0.2 AI (0.0-0.9) SS-B/La Antibody <0.2 AI (0.0-0.9) Sm Antibody <0.2 AI (0.0-0.9) SOCIAL GROUP WORKER Antibody <0.2 AI (0.0-0.9) Scl-70 (Scleroderma) Antibody <0.2 AI (0.0-0.9) Anti-Double Strand DNA Antibody <1 IU/mL (0-9) Chromatin Antibody <0.2 AI (0.0-0.9) Centromere B Antibody <0.2 AI (0.0-0.9) Complement C3 73 mg/dL (82-167) Complement C4 12 mg/dL (12-38) Free [place] Light Chains, Quant 17.9 mg/L (3.3-19.4) Free [place]/Lambda Light Chain Ratio 0.02 (0.26-1.65) HIV (1&2) Antibody Negative (Negative) Anti-Streptolysin O Antibody <20.0 IU/mL (0.0-200.0) Body Fluid Source Pleural fluid Body Fluid pH 8.0 Body Fluid WBC (Manual) 301 CUMM (0-200) Body Fluid RBC (Manual) 0 CUMM (0-2000) Body Fluid Mononuclear Cells 96 % Body Fluid Polymorphonuclear Cells 4 % (0-25) Body Fluid Glucose 99 mg/dL (.) Body Fluid Total Protein 0.2 g/dL (.) Body Fluid Lactate Dehydrogenase 51 IU/L (.) Hemoglobin A1c 5.2 % A1C (<5.7) Triglycerides Level 311 mg/dL (< 150) Cholesterol Level 567 mg/dL (< 200) LDL Cholesterol > 400 mg/dL (< 100) HDL Cholesterol 38 mg/dL (40-59) Vitamin D 25-Hydroxy 11.6 ng/mL (30.0-100) Parathyroid Hormone (Intact) 68.1 pg/mL (18.4-80.1) Hepatitis B Surface Antigen Negative (Negative) Hepatitis C Antibody Negative (Negative) Test 10/04/24 21:40 10/04/24 19:55 10/04/24 19:06 Urine Hyaline Casts Few /lpf (0 - 2) Urine Granular Casts Few /lpf (0) Urine Mucus Few (None Seen) Urine Osmolality 262 mOsm/kg Urine Creatinine 99.69 mg/dL (30.0-125.0) Urine Protein/Creatinine Ratio 12.63 Urine Total Protein 1258.9 mg/dL (1-14) Troponin I High Sensitivity 12 ng/L (</=54) Total Bilirubin 0.2 mg/dL (0.2-1.0) Aspartate Amino Transferase (AST) 33 U/L (13-40) Alanine Aminotransferase (ALT) 20 U/L (7-40) Alkaline Phosphatase 232 U/L (46-116) B-Type Natriuretic Peptide 51.28 pg/mL (0-100) Other Laboratory Tests 10/12/24 06:31 Brief Hx & Hospital Course: Brief Hospital course This is a 49-year-old male with past medical history of hyperlipidemia, who presented to the ED with chief complaint of shortness of breaths. The patient states that three days ago he started noticing bilateral lower extremity swelling that has been getting worse extending from bilateral foods all the way up to bilateral thighs. The patient also reports associated shortness of breaths and nonproductive cough. The patient also reports that the shortness of breath gets worse with the exertion and denies any similar episode before. Patient states that in the past he had one single episode of bilateral lower extremity swelling that improved by its own.Patient denies any heart failure, COPD, renal failure or any heart issues. Upon admission, initial WBC was 15.2, BNP showed an elevated creatinine at 1.36 and BUN 18. Urinalysis showed 3+ protein, 2+ blood and 1258 mg/dL of protein in 24 hours. Initial BNP was 51.28, EKG showed sinus tachycardia with no significant ST or T-wave abnormalities and troponins came back negative. Echocardiogram was ordered. Initial chest x-ray was showing severe large right-sided pleural effusion, so IR was consulted for right-sided thoracentesis and patient was admitted for further assessment and management. Nephrology has been following the case closely. Patient is alert and oriented in person, place and time not on oxygen and did not show evidence of distress on walking. Potassium came back low today as well at 3.0 despite giving 60 mEq IV yesterday but can be expected due to aggressive IV diuretic drip. We will continue the patient on bumetanide drip, metolazone 5 mg daily and vitamin-D. We have already completed three doses of high-dose IV methylprednisolone and was discontinued yesterday. We are still waiting for protein electrophoresis. His bilateral lower extremity swelling is still present but has improved compared to previous days. Patient has no additional concerns at this time. 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 Tissue we will be sent to [facility] for amyloid typing by mass spectrometry. ROS: Constitutional: Denies weight loss, fever and chills. HEENT: Denies changes in vision and hearing. Respiratory: Denies shortness of breath and cough Cardiovascular: Denies chest discomfort or palpitations GI: Denies abdominal pain, nausea, vomiting and diarrhea. : Denies dysuria and urinary frequency. Musculoskeletal: Reports bilateral lower extremity swelling that has been slightly improving compared to admission. Denies myalgias and joint pain Skin: Denies rash and pruritus. Neurological: Denies dizziness, headache, vision or hearing problems Physical Examination General: Patient alert and oriented in person, place and time. Patient following commands. HEENT: Normocephalic, atraumatic, moist mucous membranes Respiratory/pulmonary: There is decreased breath sounds on bilateral lungs but more marked in the right lung. Very mild crackles at this time, no wheezes. Cardiovascular: Normal heart sounds S1 and S2 with no associated murmurs Abdomen: Abdomen nondistended, there is mild pain to palpation in the epigastric region. No palpable masses at this time. Extremities: There is severe bilateral lower extremity 3+ pitting edema extending from the foot up to bilateral thighs. slightly improved compare to admission. Peripheral Pulses: Dorsalis pedis and posterior tibialis pulses bilateral are present but difficult to palpate due to significant edema. Skin: No rashes or pruritus, there is no sacral edema present at this time. 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 -continue metolazone 5 mg daily -upon discharge continue on potassium 40 mEq daily -bilateral lower extremity almost completely resolved. -patient needs to follow up with Heme-Onc as an outpatient to rule out possible myeloma/malignancy -continue vitamin-D as well. -Follow up at the discharge clinic in 7 days Case and Discharge plan discussed with Dr. Campos Consults/Reason for consult Reason for Consultation proteinuria Operations or Procedures PATIENT: SHILA MARTINEZ ACCT: [id number] UNIT: [id number] : 1975 LOC: [facility]GE [facility] SEX: 49 / M ADM STATUS: ADM IN SERVICE 0844 ORDERING PHYSICIAN: URIEL STEWART PROCEDURE(s): THOUS - US GUIDANCE FOR NEEDLE PLACEME REASON: KIDNEY BIOPSY ORDER NUMBER(s): [id number], ACCESSION NUMBER(s): [id number] US US GUIDANCE FOR NEEDLE PLACEME, HISTORY: KIDNEY BIOPSY PROCEDURE: Informed consent was obtained. Limited ultrasound of the right kidney was obtained. The overlying skin was prepped with chlorhexidine which was allowed to dry and draped in the usual sterile fashion. Time out was performed. The skin and soft tissue were infiltrated with 1% lidocaine, and IV sedation was administered. Under real-time ultrasound guidance, 1 biopsy specimen was obtained [facility] 18 gauge core biopsy needle; these were given to the electronics mechanic apprentice in attendance. Post biopsy scan was performed. No immediate complication was noted. SEDATION: Dr. Bull Mosley was personally responsible for the administration of moderate sedation during the procedure performed, including the use of an independent trained observer who had no other duties during the procedure. The drugs utilized were IV fentanyl and versed (see nursing log for details). The total time of supervision by the attending physician was approximately 30 minutes. FINDINGS: Limited intraprocedural ultrasound demonstrates biopsy needle within the renal cortex of right kidney. Small post procedural hematoma is noted. IMPRESSION: Ultrasound biopsy of the right kidney. Pathology results pending. ATED BY: BASIL MOSLEY MD DICTATED DATE/TIME: 10/06/24 1050 Condition at Discharge: Stable Final Diagnosis/Problems List Acute hypoxic respiratory failure likely due to massive right-sided pleural effusion Possible acute glomerulonephritis R/O Acute diastolic/systolic heart failure Leukocytosis LUIS likely due to glomerular disease Dyslipidemia Hyperphosphatemia Hyperlipidemia likely due to nephrotic syndrome (increased hepatic lipoprotein synthesis) Hypercoagulable state due to nephrotic syndrome [place]/lambda ratio decreased Hypokalemia Discharge Disposition: Home Discharge Instruct/Medications Diet: Renal Activity: No Restrictions, As Tolerated Follow Up/Referral: 7 days Medications: potassium bumetanide metolazone Discharge Statement: "Patient was advised to return to the ER or call 911 if any headaches, dizziness, shortness of breath, chest pain, abdominal pain, bleeding, fevers, or worsening of medical condition. Patient was counseled about treatment plan, medications, possible side effects, patientverbalized understanding. All questions were answered to the best of my ability. This discharge took greater then 30 minutes in planning, reviewing documentation, counseling the patient, and discussing with other team members." ASSESSMENT ASSESSMENT Assessment Acute hypoxic respiratory failure likely due to massive right-sided pleural effusion Possible acute glomerulonephritis R/O Acute diastolic/systolic heart failure Leukocytosis LUIS likely due to glomerular disease Dyslipidemia Hyperphosphatemia Hyperlipidemia likely due to nephrotic syndrome (increased hepatic lipoprotein synthesis) Hypercoagulable state due to nephrotic syndrome Keefton/lambda ratio decreased Hypokalemia TAVON AMIN RESIDENT October 12, 2024 18:00
[2024-10-12] MEDS ORDERED: POTA-180 PO (18:02)
[2024-10-15] MEDS ORDERED: APIX5TAB PO (12:58)
== END 2024-10-12 18:25 | disposition home or self-care (01) | DRG 462 ==
LOC: ER 18:51 → OVERFLOW 22:28 → WEST WING 23:40 → TELE-WESTW 10-05 04:26 → WEST WING 10-08 08:27
PROVIDERS: ADMIT Student in an Organized Health Care Education/Training Program; ATTEND Internal Medicine Nephrology
PROC: 0W993ZZ Drainage of Right Pleural Cavity, Percutaneous Approach (ICD-10-PCS; 2024-10-05)
PROC: 0TB03ZX Excision of Right Kidney, Percutaneous Approach, Diagnostic (ICD-10-PCS; principal; 2024-10-06)
DX: N00.8 Acute nephritic syndrome with other morphologic changes (principal); J96.01 Acute respiratory failure with hypoxia; I50.41 Acute combined systolic (congestive) and diastolic (congestive) heart failure; E43 Unspecified severe protein-calorie malnutrition; D68.69 Other thrombophilia; J90 Pleural effusion, not elsewhere classified; N17.9 Acute kidney failure, unspecified; E83.39 Other disorders of phosphorus metabolism; E88.09 Other disorders of plasma-protein metabolism, not elsewhere classified; E11.21 Type 2 diabetes mellitus with diabetic nephropathy; I11.0 Hypertensive heart disease with heart failure; E87.6 Hypokalemia; E78.5 Hyperlipidemia, unspecified; E66.01 Morbid (severe) obesity due to excess calories; R80.9 Proteinuria, unspecified; Z68.41 Body mass index [BMI] 40.0-44.9, adult; D72.828 Other elevated white blood cell count; T38.0X5A Adverse effect of glucocorticoids and synthetic analogues, initial encounter
CPT/HCPCS: 10005; 32555; 36415; 71045; 71250; 76604; 76775; 76942; 80048; 80053; 80061; 81001; 82306; 82570; 82784; 83036; 83516; 83521; 83615; 83735; 83880; 83935; 83970; 83986; 84100; 84155; 84156; 84165; 84484; 85025; 85610; 85730; 86160; 86225; 86235; 86256; 86334; 86703; 86803; 87070; 87205; 87340; 89051; 93005; 93306; 93970; 94618; 96365; 96375; 97163; G0378; J2003; J2250; P9047

== ENCOUNTER 2024-11-09 19:52 | Inpatient (IN) | payer MEDICAID ==
[~2024-11-09] VITALS: Ht 165.1 cm; Wt 91.0 kg
[~2024-11-09 19:52] MED LIST: ACET-1882 PO; APIX5TAB PO; ATOR20TA50 PO; BUM1T PO; METO5TAB5 PO; POTA-180 PO
--- NOTE | 2024-11-09 20:14 | ED.PDOC ---
SOB-HPI HPI Comments 49-year-old male with PMHx Pleural Effusion, CHF, HLD presents with a chief complaint of SOB. Patient states that he was hospitalized last month for pleural effusion and underwent right lung thoracentesis. Patient reports that he feels SOB at rest and with minimal exertion. Patient also mentions that he feels similar to the last time he was here in the hospital and needed the thoracentesis. Patient reports he was seen by his primary physician today and referred to the ER for hospitalization. Notably, patient is saturating 91% on room air, and states his feet and legs are more swollen than normal. Chief Complaint: Shortness of breath Time Seen by MD: 20:02 Primary Care Provider: NONE Reviewed notes: Medications, Allergies Information Source: Patient Mode of Arrival: Ambulatory Severity: Moderate Timing: Days Duration: Since onset Context: At Rest, With Light Exertion, With Heavy Exertion PE Risk Factors: None History of: CHF Prehospital treatment: None Past Medical History PAST MEDICAL HISTORY: CHF, High Lipids Past Medical History (Other): Glomerulonephritis, LUIS, PLEURAL EFFUSION Surgical History (Other): Pertinent for thoracentesis Family History Family History: Reviewed,noncontributory to illness Social History Smoker: Non-Smoker Alcohol: Denies ETOH Use Drugs: Denies Drug Use Lives In: Home Constitutional: denies: chills, diaphoresis, fatigue, fever, malaise, sweats, weakness, others EENTM: denies: blurred vision, double vision, ear bleeding, ear discharge, ear drainage, ear pain, ear ringing, eye pain, eye redness, hearing loss, mouth pain, mouth swelling, nasal discharge, nose bleeding, nose congestion, nose pain, photophobia, tearing, throat pain, throat swelling, voice changes, others Respiratory: reports: SOB at rest, shortness of breath, SOB with excertion; denies: cough, hemoptysis, orthopnea, stridor, wheezing, others Cardiovascular: reports: edema; denies: chest pain, dizzy spells, diaphoresis, Dyspnea on exertion, irregular heart beat, left arm pain, lightheadedness, palpitations, PND, syncope, others Gastrointestinal: denies: abdomen distended, abdominal pain, blood streaked bowels, constipated, diarrhea, dysphagia, difficulty swallowing, hematemesis, melena, nausea, poor appetite, poor fluid intake, rectal bleeding, rectal pain, vomiting, others Genitourinary: denies: burning, dysuria, flank pain, frequency, hematuria, incontinence, penile discharge, penile sore, pain, testicle pain, testicle swelling, urgency, others Neurological: denies: dizziness, fainting, headache, left sided numbness, left sided weakness, numbness, paresthesia, pre-existing deficit, right sided numbness, right sided weakness, seizure, speech problems, tingling, tremors, weakness, others Musculoskeletal: denies: back pain, gout, joint pain, joint swelling, muscle pain, muscle stiffness, neck pain, others Integumetry: denies: bruises, change in color, change in hair/nails, dryness, laceration, lesions, lumps, rash, wounds, others Allergic/Immunocompromised: denies: Difficulty Healing, Frequent Infections, Hives, Itching, others Hematologic/Lymphatic: denies: anemia, blood clots, easy bleeding, easy bruising, swollen glands, others Endocrine: denies: excessive hunger, excessive sweating, excessive thirst, excessive urination, flushing, intolerance to cold, intolerance to heat, unexplained weight gain, unexplained weight loss, others Psychiatric: denies: anxiety, bipolar disorder, depression, hopeless, panic disorder, schizophrenia, sleepless, suicidal, others All Other Systems: Reviewed and Negative Physical Exam General Appearance: Mild Distress HEENT: Other (Pupils and face symmetric. Moist mucous membranes.) Neck: Full Range of Motion, Normal Inspection Respiratory: Crackles, Decreased Breath Sounds, No Accessory Muscle Use, No Respiratory Distress Cardiovascular: No JVD, Tachycardia Breast Exam: Deferred Gastrointestinal: Distended, Non Tender, Soft Genitalia: Deferred Pelvic: Deferred Rectal: Deferred Extremities: Leg edema, No calf tenderness, Normal range of motion, Non-tender, Pedal edema Neurologic: Alert (Oriented x4), Normal Affect, Normal Mood, Other (Ambulatory) Cerebellar Function: NOT DONE Reflexes: NOT DONE Skin: Dry, Normal Color, Warm Lymphatic: NOT DONE EKG EKG : Comments Sinus tach, rate 103, normal intervals, normal axis, possible old lateral infarct, inferior and lateral T-wave inversion Was a procedure done? Was a procedure done?: No Differential Dx Differential Diagnosis: Asthma, Bronchitis, CHF, COPD, Myocardial infarction, Pneumonia, Other (Renal failure/LUIS, among others) X-Ray, Labs, Meds, VS Vital Signs Date Time Temp Pulse Resp B/P (MAP) Pulse Ox O2 Delivery O2 Flow Rate FiO2 11/09/24 20:12 103 11/09/24 19:52 97.5 107 22 105/58 (74) 95 97.5 Lab Test 11/09/24 21:11 11/09/24 20:18 11/09/24 20:08 Range/Units Troponin I High Sensitivity 140 *H 145 *H </=54 ng/L White Blood Count 13.7 H 4.4-10.8 10^3/uL Red Blood Count 5.39 4.5-5.90 10^6/uL Hemoglobin 15.0 13.5-17.5 g/dL Hematocrit 45.0 41.0-53.0 % Mean Corpuscular Volume 83.5 80.0-100.0 fL Mean Corpuscular Hemoglobin 27.9 L 28.0-32.0 pg Mean Corpuscular Hemoglobin Concent 33.4 32.0-36.0 g/dL Red Cell Distribution Width 16.1 H 11.8-14.3 % Platelet Count 364 140-450 10^3/uL Mean Platelet Volume 9.7 6.9-10.8 fL Neutrophils (%) (Auto) 44.1 37.0-80.0 % Lymphocytes (%) (Auto) 44.1 10.0-50.0 % Monocytes (%) (Auto) 10.9 0.0-12.0 % Eosinophils (%) (Auto) 0.5 0.0-7.0 % Basophils (%) (Auto) 0.4 0.0-2.0 % Neutrophils # (Auto) 6.0 1.6-8.6 10 ^3/uL Lymphocytes # (Auto) 6.0 H 0.4-5.4 10 ^3/uL Monocytes # (Auto) 1.5 H 0-1.3 10 ^3/uL Eosinophils # (Auto) 0.1 0-0.8 10 ^3/uL Basophils # (Auto) 0.1 0-0.2 10 ^3/uL Nucleated Red Blood Cells 0.3 % Sodium Level 139 136-145 mmol/L Potassium Level 3.6 3.5-5.1 mmol/L Chloride Level 104 98-107 mmol/L Carbon Dioxide Level 29 20-31 mmol/L Anion Gap 6 5-15 Blood Urea Nitrogen 57 H 9-23 mg/dL Creatinine 2.56 H 0.700-1.30 mg/dL Glomerular Filtration Rate Calc 30 >90 mL/min BUN/Creatinine Ratio 22.3 H 10.0-20.0 Serum Glucose 104 74-106 mg/dL Calcium Level 7.9 L 8.7-10.4 mg/dL Total Bilirubin < 0.2 L 0.2-1.0 mg/dL Aspartate Amino Transferase (AST) 41 H 13-40 U/L Alanine Aminotransferase (ALT) 20 7-40 U/L Alkaline Phosphatase 200 H 46-116 U/L B-Type Natriuretic Peptide 165.32 0-100 pg/mL Total Protein 2.9 L 5.7-8.2 g/dL Albumin 1.6 L 3.2-4.8 g/dL Urine Color Pending Urine Clarity Pending Urine pH Pending Urine Specific [place] Pending Urine Protein Pending Urine Ketones Pending Urine Blood Pending Urine Nitrite Pending Urine Bilirubin Pending Urine Urobilinogen Pending Urine Leukocyte Esterase Pending Urine RBC Pending Urine Microscopic WBC Pending Urine Squamous Epithelial Cells Pending Urine Bacteria Pending Urine Glucose Pending PROCEDURE(s): CXRP - CHEST PORTABLE REASON: sob ORDER NUMBER(s): [id number], ACCESSION NUMBER(s): [id number] CHEST RADIOGRAPH Indication: sob Technique: Single frontal view of the chest was obtained Comparison: XY CHEST XRAY 1 VIEW on DOS: 10/11/24, XY CHEST XRAY 1 VIEW on DOS: 10/09/24, XY CHEST PORTABLE on DOS: 10/05/24 Findings/ IMPRESSION: Elevated right hemidiaphragm with right-sided pleural effusion not excluded. No focal consolidation or pneumothorax. X-Ray, Labs, Meds, VS Comment 49-year-old male with a history of CHF, pleural effusions, glomerulonephritis, hypertension, dyslipidemia, presenting with shortness of breath, dyspnea on exertion and worsening edema Vitals remarkable for heart rate 107, respiratory rate 22, BP 105/58 Exam remarkable for mild tachypnea, diminished breath sounds, rales at the bases, mild tachycardia and lower extremity edema Rhythm strip independently interpreted by me: Sinus tach, rate 103, no ectopy. Chest x-ray IMPRESSION: Elevated right hemidiaphragm with right-sided pleural effusion not excluded. No focal consolidation or pneumothorax. CBC remarkable for WBC 13.7, CMP remarkable for BUN 57, creatinine 2.56, al kaline phos 100, BNP 165.32, troponins 145 and 140 Patient treated with the following in the ED: Bumex 1 mg IV , aspirin 325 mg p.o. On re-evaluation, patient is saturating 95 % on nasal cannula. Plan is to admit the patient for diuresis and nephrology evaluation. Patient does not appear septic at this time. Leukocytosis is likely a stress reaction, tachycardia and increased respiratory rate are likely due to hypoxia. Time of 1ST Reevaluation: 20:32 Reevaluation 1ST: Unchanged Patient Education/Counseling: Diagnosis, Treatment, Need For Follow Up Family Education/Counseling: No Family Present Sepsis Recent Procedure: No On Antibiotic Therapy: No Respiratory Rate >20: Yes Heart Rate >90: Yes Temp<36 C (96.8 F) or >38.3 C: No SBP <90 or MAP <65 mmHG: No New Acute Mental Status Change: No Is the patient on CPAP, BIPAP,: No IV fluid given: No Departure 1 Departure Time of Disposition: 23:23 Impression: Primary Impression: Hypoxia Additional Impressions: Pleural effusion LUIS (acute kidney injury) Elevated troponin Disposition: ADMITTED INPATIENT Admit to: [facility] Condition: Guarded Critical Care Note Critical Care Time?: No Stability Stability form required: No Heart Score Heart Score: Heart Score Response (Comments) Value History N/A 0 EKG N/A 0 Age N/A 0 Risk Factors N/A 0 Troponin N/A 0 Total 0 I personally scribed for MELANIE CUELLAR MD ([email or web address]) on 11/09/24 at 20:14. Electronically submitted by Elias Bruner ([email or web address]). MELANIE CUELLAR MD Nov 09, 2024 20:14
--- NOTE | 2024-11-09 20:18 | ECG ---
[facility] Test Date: 2024-11-09 Test Time: 20:12:00 Pat Name: SHILA MARTINEZ Department: ER Room: [id number] Gender: M Lens Maker: JAIME : 1975 Requested By: MELANIE FOUNTAIN Order Number: [id number] Reading MD: Dereck Shankar Measurements Intervals [place] Rate: 103 P: 55 WA: 138 QRS: 113 QRSD: 80 T: -10 QT: 350 QTc: 458 Interpretive Statements Sinus tachycardia Left posterior fascicular block Borderline T abnormalities, diffuse leads Electronically Signed On 11-11-2024 14:57:17 PDT by Dereck Shankar Please click the below link to view image of tracing.
[2024-11-09 20:44] LABS: Basophils # (auto) 0.1 10 ^3/uL (0-0.2); Basophils % (auto) 0.4 % (0.0-2.0); Eosinophils # (auto) 0.1 10 ^3/uL (0-0.8); Eosinophils % (auto) 0.5 % (0.0-7.0); Lymphocytes % (auto) 44.1 % (10.0-50.0); Mean Corpuscular Hemoglobin 27.9 pg (28.0-32.0); Mean Corpuscular Hgb Conc. 33.4 g/dL (32.0-36.0); Mean Corpuscular Volume 83.5 fL (80.0-100.0); Monocytes # (auto) 1.5 10 ^3/uL (0-1.3); Monocytes % (auto) 10.9 % (0.0-12.0); Neutrophils % (auto) 44.1 % (37.0-80.0); Nucleated Red Blood Cells % 0.3 %; Platelet Count (auto) 364 10^3/uL (140-450); Red Blood Cells 5.39 10^6/uL (4.5-5.90); Red Cell Distribution Width 16.1 % (11.8-14.3); White Blood Cell 13.7 10^3/uL (4.4-10.8)
[2024-11-09 21:06] LABS: Alanine Aminotransferase 20 U/L (7-40); Anion Gap 6 (5-15); BUN/Creatinine Ratio 22.3 (10.0-20.0); Carbon Dioxide 29 mmol/L (20-31); Chloride 104 mmol/L (98-107); Glucose 104 mg/dL (74-106); Potassium 3.6 mmol/L (3.5-5.1); Sodium 139 mmol/L (136-145)
[2024-11-09 21:34] LABS: Albumin 1.6 g/dL (3.2-4.8); Alkaline Phosphatase 200 U/L (46-116); Aspartate Aminotransferase 41 U/L (13-40); Bilirubin, Total < 0.2 mg/dL (0.2-1.0); Blood Urea Nitrogen 57 mg/dL (9-23); Calcium 7.9 mg/dL (8.7-10.4); Total Protein 2.9 g/dL (5.7-8.2)
--- NOTE | 2024-11-09 22:15 | DVH ---
CHEST RADIOGRAPH Indication: sob Technique: Single frontal view of the chest was obtained Comparison: XY CHEST XRAY 1 VIEW on DOS: 10/11/24, XY CHEST XRAY 1 VIEW on DOS: 10/09/24, XY CHEST PORTAB LE on DOS: 10/05/24 Findings/ IMPRESSION: Elevated right hemidiaphragm with right-sided pleural effusion not excluded. No focal consolidation o r pneumothorax.
[2024-11-09 23:28] LABS: Urine Bacteria FEW /hpf (None Seen); Urine Blood 2+ /uL (Negative); Urine Clarity Turbid (Clear); Urine Color Yellow (Yellow); Urine Mucus FEW (None Seen); Urine Protein, UAD 3+ (Negative); Urine Squamous Epithelial Cell None Seen /hpf (<5); Urine Urobilinogen Normal (Negative); Urine WBC 8 /HPF (0-3); Urine pH 6.5 (5.0-9.0)
--- NOTE | 2024-11-09 23:47 | DVHHPRES ---
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 The patient was recently hospitalized last month due to similar symptoms in which a kidney biopsy was performed showing amyloidosis and mass spectrometry was sent to [facility] which showed AL amyloid. The patient never had a bone marrow biopsy as outpatient due to distant appointments. The patient states that since four days ago symptoms started coming back, there was increase of bilateral lower extremity swelling which is extending from the foot all the way up to the knees bilaterally and associated shortness of breaths. On previous visit, the patient had a large right-sided pleural effusion that required thoracentesis. We ordered a chest x-ray which is currently showing elevated right hemidiaphragm with a possible small right-sided pleural effusion. We will perform a chest ultrasound to quantify level of effusion. The patient denies fever/chills, chest pain, or any other additional symptoms. The patient states that has been compliant with his Eliquis, bumetanide and metolazone which were prescribed upon discharge. Patient states that the medicine is no further working at this time. We will consult Nephrology for management of nephrotic syndrome and admit the patient for further assessment and management. Past medical history: Nephrotic syndrome recently diagnosed AL amyloidosis, hyperlipidemia Home medications: Eliquis 5 mg b.i.d., bumetanide 1 mg b.i.d., metolazone 5 mg daily, atorvastatin 20 mg daily, fenofibrate 160 mg daily, potassium 20 mEq as needed No surgical history Social history: Denies alcohol, drug or smoking Cardiovascular: hyperipidemia Renal/: Other (Nephrotic syndrome (AL AMYLOID)) Past Surgical History: None Family History: None Smoke: No ALCOHOL: none Drugs: None Lives: with Family Domestic Violence: Neg Review of Systems Constitutional: No: Fever, Chills, Sweats, Weakness, Malaise, Other Eyes: No: Pain, Vision change, Conjunctivae inflammation, Eyelid inflammation, Other, Redness ENT: No: Ear pain, Ear discharge, Nose pain, Nose discharge, Nose congestion, Mouth pain, Mouth swelling, Throat pain, Throat swelling, Other Respiratory: Shortness of breath; No: Cough, Dry, SOB with excertion, Wheezing, Hemoptysis, Pleuritic Pain, Sputum, Wheezing, Other Cardiovascular: No: Chest Pain, Palpitations, Orthopnea, Paroxysmal Noc. Dyspnea, Edema, Lt Headedness, Other Gastrointestinal: No: Nausea, Vomiting, Abdominal Pain, Diarrhea, Constipation, Melena, Hematochezia, Other Genitourinary: No Dysuria, No Frequency, No Incontinence, No Hematuria, No Retention, No Other Musculoskeletal: other (BILATERAL LOWER EXTREMITY 3+ PITTING EDEMA); No: neck pain, shoulder pain, arm pain, back pain, hand pain, leg pain, foot pain Skin: No: Rash, Lesions, Jaundice, Bruising, Other Neurological: No: Weakness, Numbness, Incoordination, Change in speech, Confusion, Seizures, Other Allergies: Coded Allergies: NO KNOWN ALLERGIES (Unverified , 06/25/12) Medications Current Medications Medications Dose Ordered Sig/Matthias Route Start Time Stop Time Status Last Admin Dose Admin Acetaminophen 650 mg Q6HP PRN PO 11/09/24 23:15 Furosemide 60 mg BID IV 11/10/24 08:00 Metolazone 5 mg DAILY PO 11/10/24 10:00 Atorvastatin Calcium 20 mg DAILY PO 11/10/24 10:00 Exam Vital Signs Vital Signs Date Time Temp Pulse Resp B/P (MAP) Pulse Ox O2 Delivery O2 Flow Rate FiO2 11/09/24 20:12 103 11/09/24 19:52 97.5 22 105/58 (74) 95 97.5 General Appearance: Alert, Oriented X3, Cooperative, No acute distress HEENT: Atraumatic, PERRLA, EOMI, Mucous membr. moist/pink Respiratory: Clear to auscultation, Normal air movement Cardiovascular: Regular rate, Normal S1, Normal S2, No murmurs Abdominal: Normal bowel sounds, Soft, No tenderness, No hepatospenomegaly Extremities: No clubbing, No cyanosis, No edema, Normal pulses, No tenderness/swelling Skin: No rashes, No breakdown, No significant lesion Neuro: Normal gait, Normal speech, Strength at 5/5 X4 ext, Normal tone, Sensation intact, Cranial nerves 3-12 NL, Reflexes 2+ Psych/Mental Status: Mental status NL, Mood NL Labs/Xrays Labs Test 11/09/24 21:11 11/09/24 20:18 11/09/24 20:08 Range/Units Troponin I High Sensitivity 140 *H </=54 ng/L White Blood Count 13.7 H 4.4-10.8 10^3/uL Red Blood Count 5.39 4.5-5.90 10^6/uL Hemoglobin 15.0 13.5-17.5 g/dL Hematocrit 45.0 41.0-53.0 % Mean Corpuscular Volume 83.5 80.0-100.0 fL Mean Corpuscular Hemoglobin 27.9 L 28.0-32.0 pg Mean Corpuscular Hemoglobin Concent 33.4 32.0-36.0 g/dL Red Cell Distribution Width 16.1 H 11.8-14.3 % Platelet Count 364 140-450 10^3/uL Mean Platelet Volume 9.7 6.9-10.8 fL Neutrophils (%) (Auto) 44.1 37.0-80.0 % Lymphocytes (%) (Auto) 44.1 10.0-50.0 % Monocytes (%) (Auto) 10.9 0.0-12.0 % Eosinophils (%) (Auto) 0.5 0.0-7.0 % Basophils (%) (Auto) 0.4 0.0-2.0 % Neutrophils # (Auto) 6.0 1.6-8.6 10 ^3/uL Lymphocytes # (Auto) 6.0 H 0.4-5.4 10 ^3/uL Monocytes # (Auto) 1.5 H 0-1.3 10 ^3/uL Eosinophils # (Auto) 0.1 0-0.8 10 ^3/uL Basophils # (Auto) 0.1 0-0.2 10 ^3/uL Nucleated Red Blood Cells 0.3 % Sodium Level 139 136-145 mmol/L Potassium Level 3.6 3.5-5.1 mmol/L Chloride Level 104 98-107 mmol/L Carbon Dioxide Level 29 20-31 mmol/L Anion Gap 6 5-15 Blood Urea Nitrogen 57 H 9-23 mg/dL Creatinine 2.56 H 0.700-1.30 mg/dL Glomerular Filtration Rate Calc 30 >90 mL/min BUN/Creatinine Ratio 22.3 H 10.0-20.0 Serum Glucose 104 74-106 mg/dL Calcium Level 7.9 L 8.7-10.4 mg/dL Total Bilirubin < 0.2 L 0.2-1.0 mg/dL Aspartate Amino Transferase (AST) 41 H 13-40 U/L Alanine Aminotransferase (ALT) 20 7-40 U/L Alkaline Phosphatase 200 H 46-116 U/L B-Type Natriuretic Peptide 165.32 0-100 pg/mL Total Protein 2.9 L 5.7-8.2 g/dL Albumin 1.6 L 3.2-4.8 g/dL Assessment/Plan Assessment/Plan Assessment/plan Acute hypoxic respiratory failure likely due to right-sided pleural effusion, likely due to nephrotic syndrome (loss of oncotic pressure) 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 ([facility] staging system) LUIS likely due to above Possible myeloma, R/O malignancy (per previous hospitalization) Hyperlipidemia likely due to nephrotic syndrome Hypercoagulable state due to above Plan -Give 500ml Iv fluid bolus and IV albumin due to hypotension, after stabilization, start diuretics -start IV furosemide 60 mg b.i.d. -restart metolazone 5 mg daily -Restrat Eliquis 5mg BID -Restart atorvastatin 20mg daily -strict in's and out -ordered chest ultrasound to rule out right-sided pleural effusion and quantify it -consulted nephrology for nephrotic syndrome management -patient needs bone marrow biopsy to rule out malignancy based on previous hospitalization lab work -Heme Onc consult -Monitor electrolytes (potassium) Goals of care discussed with the patient at bedside for >35min, FULL CODE Plan discussed with Dr. Bird Plan discussed with: Patient My Orders Orders - URIEL STEWART Procedure Category Date Status Time Admit ADMIT 11/09/24 Transmitted 23:10 Code Status CODE 11/09/24 Transmitted 23:10 Vital Signs SANTI 11/09/24 In Process 23:10 Review Orders With SANTI 11/09/24 In Process Adm. 23:10 Encourage Activity As SANTI 11/09/24 In Process Tolerate 23:10 Regular Diet DIET 11/10/24 Transmitted Breakfast Acetaminophen Tablet PHA 11/09/24 In Process (Tylenol Tablet) 23:15 Notify Of Changes SANTI 11/09/24 In Process From Base 23:10 Advance Directive SANTI 11/09/24 In Process 23:10 Basic Metabolic Panel LAB 11/10/24 Verified 04:00 Urinalysis LAB 11/09/24 Logged 23:10 Complete Blood Count LAB 11/10/24 Verified 04:00 Lipid Panel LAB 11/09/24 In Process 23:10 Patient Condition ORDERS 11/09/24 Transmitted 23:10 Allergies SANTI 11/09/24 In Process 23:10 Drug Screen LAB 11/09/24 Logged 23:10 Hemoglobin A1c LAB 11/09/24 In Process 23:10 Furosemide Injection PHA 11/10/24 In Process (Lasix Injection) 08:00 Metolazone (Zaroxolyn) PHA 11/10/24 In Process 10:00 Atorvastatin (Lipitor) PHA 11/10/24 In Process 10:00 Urinalysis LAB 11/09/24 Logged 23:18 Urine Sodium LAB 11/09/24 Logged 23:18 Urine Creatinine LAB 11/09/24 Logged 23:18 Urine LAB 11/09/24 Logged Protein/Creatinine Chest Ultrasound US 11/09/24 Logged 23:19 *Dr. [facility] CONS 11/09/24 Verified -[place] 23:21 Date of Service: Nov 09, 2024 Billing Provider: SHIRA BIRD MD Common Visit Codes: 62501-EUOHAWJ INP/OBS CARE (HIGH) Secondary Visit Codes: 03775-[id number] CARE PLAN 30 MINUTES URIEL STEWART RESIDENT Nov 09, 2024 23:47
[2024-11-09 23:53] LABS: Cholesterol 537 mg/dL (< 200); HDL Cholesterol 37 mg/dL (40-59); Triglycerides 559 mg/dL (< 150)
[2024-11-09 23:53] LABS: Sodium Urine < 10 mmol/L (40-220)
[2024-11-09 23:55] LABS: Creatinine, Urine 159.12 mg/dL (30.0-125.0); Creatinine, Urine 159.67 mg/dL (30.0-125.0)
[2024-11-09 23:58] LABS: Amphetamine Screen, Urine Neg (NEGATIVE); Barbiturate Scree,Urine Neg (NEGATIVE); Benzodiazephine Screen, Urine Neg (NEGATIVE); Cannabinoid Screen, Urine Neg (NEGATIVE); Cocaine Screen, Urine Neg (NEGATIVE); Opiate Scree,Urine Neg (NEGATIVE); Phencyclidine Screen, Urine Neg (NEGATIVE)
[2024-11-09 23:59] LABS: Protein, Urine > 2500.0 mg/dL (1-14); Urine Protein/Creatinine Ratio 15.66
[2024-11-10] VITALS (11 sets, daily range): BP systolic 82–104; BP diastolic 41–65; PULSE 78–95; RESP 15–18; TEMP 97.3–98.6; O2SAT 91–98
[2024-11-10] MEDS: SODIUM CHLORIDE 0.9% 500 ML IV ONE (00:19)
[2024-11-10] MEDS: ALBUMIN 25% 100 ML IV SCH ×2 (00:21→08:29)
[2024-11-10] MEDS: ASPirin 325 MG TAB PO ONE (00:30)
--- NOTE | 2024-11-10 01:21 | DVH ---
Bilateral Chest Sonogram Date: 11/09/2024 11:19 PM Clinical history: QUANTIFY RIGHT SIDED PLEURAL EFFUSION Images submitted: Findings/ IMPRESSION: Bilateral pleural effusions. Large in the right and small on the left.
[2024-11-10] MEDS: BUMETANIDE 1mg/4ml VIAL (0.25mg/ml) IV ONE (02:24)
[2024-11-10] MEDS ORDERED: FENO160T PO (05:34)
[2024-11-10 07:07] LABS: Basophils # (auto) 0 10 ^3/uL (0-0.2); Basophils % (auto) 0.3 % (0.0-2.0); Eosinophils # (auto) 0.1 10 ^3/uL (0-0.8); Hematocrit 32.9 % (41.0-53.0); Lymphocytes # (auto) 5.3 10 ^3/uL (0.4-5.4); Lymphocytes % (auto) 42.5 % (10.0-50.0); Mean Corpuscular Hemoglobin 27.6 pg (28.0-32.0); Mean Corpuscular Hgb Conc. 33.3 g/dL (32.0-36.0); Mean Corpuscular Volume 82.9 fL (80.0-100.0); Monocytes # (auto) 1.8 10 ^3/uL (0-1.3); Monocytes % (auto) 14.1 % (0.0-12.0); Neutrophils # (auto) 5.2 10 ^3/uL (1.6-8.6); Neutrophils % (auto) 42.1 % (37.0-80.0); Nucleated Red Blood Cells % 0.1 %; Platelet Count (auto) 284 10^3/uL (140-450); Red Blood Cells 3.97 10^6/uL (4.5-5.90); Red Cell Distribution Width 15.8 % (11.8-14.3); White Blood Cell 12.4 10^3/uL (4.4-10.8)
[2024-11-10 07:12] LABS: Anion Gap 8 (5-15); Carbon Dioxide 30 mmol/L (20-31); Chloride 103 mmol/L (98-107); Sodium 141 mmol/L (136-145)
[2024-11-10 07:18] LABS: Glucose 88 mg/dL (74-106)
[2024-11-10 07:21] LABS: Blood Urea Nitrogen 58 mg/dL (9-23); Calcium 7.5 mg/dL (8.7-10.4); Potassium 2.8 mmol/L (3.5-5.1)
[2024-11-10] MEDS: FUROSEMIDE 100 MG/10ML VIAL IV SCH (07:25)
[2024-11-10] MEDS: APIXABAN 5 MG TAB PO SCH (08:29)
[2024-11-10] MEDS: ATORVASTATIN 20 MG TAB PO SCH (08:29)
[2024-11-10] MEDS: metOLazone 5 MG TAB PO SCH (08:30)
[2024-11-10 08:56] LABS: INR 1.2 (0.9-1.15); Partial Thromboplastin Time 43.9 SEC (24.5-34.5); Prothrombin Time 12.5 sec (9.3-11.8)
[2024-11-10] MEDS: POTASSIUM CHL 20MEQ/100ML 100 ML IV SCH (11:35)
[2024-11-10] MEDS: MIDODRINE HCL 10 MG TAB PO SCH (12:19)
--- NOTE | 2024-11-10 13:07 | DVH ---
CT PELVIS WO CONTRAST, HISTORY: BONE MARROW BX COMPARISON: None PROCEDURE: Informed consent and time-out was performed before the procedure. Conscious sedation was p erformed by the interventional radiology nurse. The right posterior pelvic bone was marked, sterilize d, draped, and locally anesthetized using approximately 8 ml of 1% lidocaine. Axial CT images were us ed for localization. A 11 gauge [employer] Bone Biopsy kit was used to take 15 mL aspirate and 1 core. The biopsy needle was then removed. No immediate complications noted. FINDINGS: Axial CT images demonstrates biopsy needle within the right posterior pelvic bone. IMPRESSION: Successful CT-guided bone marrow aspiration and biopsy of the right posterior pelvic bone.
--- NOTE | 2024-11-10 13:24 | DVH ---
US THORACENTESIS, HISTORY: PLEURAL EFFUSION PROCEDURE: Informed consent was obtained. The patient was seated on the bed. A limited localization u ltrasound of the right thorax was obtained, and the optimal approach was marked on the skin. The area was prepped with chlorhexidine which was allowed to dry and draped in the usual sterile fashion. Rodger e out was performed. The skin and the soft tissues were infiltrated with 1% lidocaine. A 5.5 [place] c entesis needle catheter was advanced into right pleural space. Following aspiration of fluid, the cat heter was advanced and the needle removed. About 1500 cc of fluid was drained. Specimen/s was/were se nt for appropriate cultures/cytology/cultures and cytology. No immediate complication was identified. FINDINGS: Large right pleural effusion. Aspirated fluid is clear and serous. IMPRESSION: Right thoracentesis with 1.5L removed.
--- NOTE | 2024-11-10 13:29 | DVH ---
CHEST RADIOGRAPH Indication: POST THORA Technique: Single frontal view of the chest was obtained COMPARISON: XY CHEST PORTABLE on DOS: 11/09/24, XY CHEST XRAY 1 VIEW on DOS: 10/11/24, XY CHEST XRAY 1 EW on DOS: 10/09/24, XY CHEST PORTABLE on DOS: 10/05/24, XY CHEST XRAY 1 VIEW on DOS: 10/05/24 FINDINGS: Lines and Tubes: None Lungs: Clear Pleura: No effusion. No pneumothorax. Cardiomediastinal contours: Unremarkable Bones: Unremarkable IMPRESSION: No acute disease. No appreciable pneumothorax.
--- NOTE | 2024-11-10 14:26 | DVHCONRES ---
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 The patient was recently hospitalized last month due to similar symptoms in which a kidney biopsy was performed showing amyloidosis and mass spectrometry was sent to [facility] which showed AL amyloid. The patient never had a bone marrow biopsy as outpatient due to distant appointments. The patient states that since four days ago symptoms started coming back, there was increase of bilateral lower extremity swelling which is extending from the foot all the way up to the knees bilaterally and associated shortness of breaths, decreased urine output. He denied fever, chills, cough with productive sputum, abdominal pain, nausea, vomiting, dysuria, hematuria or any change in bowel habit. Family History: Diabetes mellitus G8 FATHER Allergies: Coded Allergies: NO KNOWN ALLERGIES (Unverified , 06/25/12) Home Meds Active Scripts Apixaban Base (ELIQUIS) 5 Mg Tab, 5 MG PO BID for 30 Days, #60 TAB Prov:SHREYAS MOISE MD 10/15/24 Potassium Chloride (Potassium Chloride ER) 20 Meq Tab, 40 MEQ PO DAILY PRN for 30 Days, #60 TAB Prov:TAVON AMIN 10/12/24 Metolazone (Metolazone) 5 Mg Tab, 5 MG PO DAILY for 30 Days, #30 TAB Prov:TAVON AMIN 10/12/24 Atorvastatin Calcium (ATORVASTATIN CALCIUM) 20 Mg Tab, 80 MG PO HS for 30 Days, #120 TAB Prov:TAVON AMIN 10/12/24 Acetaminophen (Acetaminophen) 325 Mg Tab, 650 MG PO Q6HP PRN for 14 Days, #112 TAB Prov:TAVON AMIN 10/12/24 Bumetanide (Bumex Tablet) 1 Mg Tab, 2 MG PO BIDD for 30 Days, #60 TAB Prov:TAVON AMIN 10/12/24 Reported Medications Fenofibrate (Fenofibrate) 160 Mg Tab, 1 TAB PO DAILY, #30 TAB 5 Refills 11/10/24 Current Medications Current Medications Medications (Trade) Dose Ordered Sig/Matthias Route PRN Reason Start Time Stop Time Status Last Admin Acetaminophen (Tylenol Tablet) 650 mg Q6HP PRN PO PAIN SCALE 1-3 OR TEMP>100.4 11/09/24 23:15 Furosemide (Lasix Injection) 60 mg BID IV 11/10/24 08:00 11/10/24 11:20 DC Metolazone (Zaroxolyn) 5 mg DAILY PO 11/10/24 10:00 11/10/24 08:30 Atorvastatin Calcium (Lipitor) 20 mg DAILY PO 11/10/24 10:00 11/10/24 08:29 Apixaban (Eliquis) 5 mg BID PO 11/10/24 10:00 Hold Albumin Human 100 ml @ 100 mls/hr Q8H IV 11/10/24 00:15 11/10/24 07:37 DC 11/10/24 01:12 Albumin Human 100 ml @ 100 mls/hr Q8H IV 11/10/24 10:00 11/11/24 02:59 11/10/24 08:29 Potassium Chloride 100 ml @ 50 mls/hr Q2H IV 11/10/24 07:45 11/10/24 13:44 DC 11/10/24 13:45 Bumetanide 12.5 mg/Miscellaneous 50 ml @ 2 mls/hr Q24H IV 11/10/24 11:30 Midodrine (Proamatine Tablet) 10 mg TID@0600,1200,1800 PO 11/10/24 12:00 11/10/24 12:19 Review of Systems Constitutional: No: Fever, Chills, Sweats, Weakness, Malaise, Other Eyes: No: Pain, Vision change, Conjunctivae inflammation, Eyelid inflammation, Other, Redness ENT: No: Ear pain, Ear discharge, Nose pain, Nose discharge, Nose congestion, Mouth pain, Mouth swelling, Throat pain, Throat swelling, Other Respiratory: Shortness of breath, No: Cough, Dry,Wheezing, Hemoptysis, Pleuritic Pain, Sputum, Wheezing, Other Cardiovascular: No: Chest Pain, Palpitations, Orthopnea, Paroxysmal Noc. Dyspnea, Edema, Lt Headedness, Other Gastrointestinal: No: Nausea, Vomiting, Abdominal Pain, Diarrhea, Constipation, Melena, Hematochezia, Other Musculoskeletal: No: other, neck pain, shoulder pain, arm pain, back pain, hand pain, leg pain, foot pain Genitourinary : Decreased urine output, bilateral leg swelling. Neurological:; No: Weakness, Numbness, Incoordination, Change in speech, Confusion, Seizures Vital Signs Vital Signs Date Time Temp Pulse Resp B/P (MAP) Pulse Ox O2 Delivery O2 Flow Rate FiO2 11/10/24 09:00 97.6 81 18 100/53 (69) 98 97.6 11/10/24 08:00 Nasal Cannula* 1 24 Physical Exam Physical examination: General Appearance: Alert, Oriented X3, Cooperative, on nasal canula 2L HEENT: Atraumatic, PERRLA, EOMI, Mucous membrane moist/pink Respiratory: Bilateral decreased breath sound , mostly on the rt side. Cardiovascular: Regular rate, Normal S1, Normal S2, No murmurs, no chest wall tenderness Abdominal: Normal bowel sounds, Soft, No tenderness, No hepatospenomegaly, No masses Extremities: Edema +++, No clubbing, No cyanosis, Normal pulses, No tender ness/swelling Skin: No rashes, No breakdown, No significant lesion Neuro: Normal speech, Strength at 5/5 X4 ext, Normal tone, Sensation intact, Cranial nerves 3-12 NL, Reflexes 2+ Psych/Mental Status: Mental status NL, Mood NL Labs/Diagnostic Data Labs Test 11/10/24 06:29 11/09/24 21:11 11/09/24 20:18 11/09/24 20:08 Range/Units White Blood Count 12.4 H 4.4-10.8 10^3/uL Red Blood Count 3.97 L 4.5-5.90 10^6/uL Hemoglobin 11.0 #L 13.5-17.5 g/dL Hematocrit 32.9 #L 41.0-53.0 % Mean Corpuscular Volume 82.9 80.0-100.0 fL Mean Corpuscular Hemoglobin 27.6 L 28.0-32.0 pg Mean Corpuscular Hemoglobin Concent 33.3 32.0-36.0 g/dL Red Cell Distribution Width 15.8 H 11.8-14.3 % Platelet Count 284 140-450 10^3/uL Mean Platelet Volume 9.6 6.9-10.8 fL Neutrophils (%) (Auto) 42.1 37.0-80.0 % Lymphocytes (%) (Auto) 42.5 10.0-50.0 % Monocytes (%) (Auto) 14.1 H 0.0-12.0 % Eosinophils (%) (Auto) 1.0 0.0-7.0 % Basophils (%) (Auto) 0.3 0.0-2.0 % Neutrophils # (Auto) 5.2 1.6-8.6 10 ^3/uL Lymphocytes # (Auto) 5.3 0.4-5.4 10 ^3/uL Monocytes # (Auto) 1.8 H 0-1.3 10 ^3/uL Eosinophils # (Auto) 0.1 0-0.8 10 ^3/uL Basophils # (Auto) 0 0-0.2 10 ^3/uL Nucleated Red Blood Cells 0.1 % Prothrombin Time 12.5 H 9.3-11.8 sec Prothrombin Time INR 1.20 H 0.9-1.15 Activated Partial Thromboplast Time 43.9 H 24.5-34.5 SEC Sodium Level 141 136-145 mmol/L Potassium Level 2.8 L 3.5-5.1 mmol/L Chloride Level 103 98-107 mmol/L Carbon Dioxide Level 30 20-31 mmol/L Anion Gap 8 5-15 Blood Urea Nitrogen 58 H 9-23 mg/dL Creatinine 2.64 H 0.700-1.30 mg/dL Glomerular Filtration Rate Calc 29 >90 mL/min BUN/Creatinine Ratio 22.0 H 10.0-20.0 Serum Glucose 88 74-106 mg/dL Calcium Level 7.5 L 8.7-10.4 mg/dL Troponin I High Sensitivity 140 *H </=54 ng/L Hemoglobin A1c 5.9 H <5.7 % A1C Total Bilirubin < 0.2 L 0.2-1.0 mg/dL Aspartate Amino Transferase (AST) 41 H 13-40 U/L Alanine Aminotransferase (ALT) 20 7-40 U/L Alkaline Phosphatase 200 H 46-116 U/L B-Type Natriuretic Peptide 165.32 0-100 pg/mL Total Protein 2.9 L 5.7-8.2 g/dL Albumin 1.6 L 3.2-4.8 g/dL Triglycerides Level 559 H < 150 mg/dL Cholesterol Level 537 H < 200 mg/dL LDL Cholesterol < 100 mg/dL HDL Cholesterol 37 L 40-59 mg/dL Urine Color Yellow Yellow Urine Clarity Turbid H Clear Urine pH 6.5 5.0-9.0 Urine Specific Maxwell 1.030 1.001-1.035 Urine Protein 3+ H Negative Urine Ketones Negative Negative Urine Blood 2+ H Negative /uL Urine Nitrite Negative Negative Urine Bilirubin Negative Negative Urine Urobilinogen Normal Negative mg/dL Urine Leukocyte Esterase Negative Negative /uL Urine RBC 7 0 - 3 /hpf Urine Microscopic WBC 8 H 0-3 /HPF Urine Squamous Epithelial Cells None seen <5 /hpf Urine Bacteria Few H None Seen /hpf Urine Granular Casts Few 0 /lpf Urine Mucus Few None Seen Urine Creatinine 159.67 H 30.0-125.0 mg/dL Urine Protein/Creatinine Ratio 15.66 Urine Sodium < 10 L 40-220 mmol/L Urine Glucose Normal Normal mg/dL Urine Total Protein > 2500.0 H 1-14 mg/dL Urine Opiates Screen Neg NEGATIVE Urine Fentanyl Screen Neg NEGATIVE Urine Barbiturates Screen Neg NEGATIVE Urine Phencyclidine Screen Neg NEGATIVE Urine Amphetamines Screen Neg NEGATIVE Urine Benzodiazepines Screen Neg NEGATIVE Urine Cocaine Screen Neg NEGATIVE Urine Cannabinoids Screen Neg NEGATIVE Assessment Assessment/plan LUIS likely hemodynamically mediated/VMN 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 ([facility] staging system) Acute hypoxic respiratory failure likely due to right-sided pleural effusion, secondary to nephrotic syndrome, s/p thoracentesis Possible multiple myeloma, or light chain disease R/O malignancy (per previous hospitalization) Hyperlipidemia likely due to nephrotic syndrome Hypercoagulable state due to above Hypokalemia Plan/Recommendation Plan : - IV albumin 25%, 100 cc at Q 8 hours - IV Bumex drip - Continue metolazone 5 mg daily - Continue eloquis 5mg BID - Continue atorvastatin 20mg daily - Strict I&O - Avoid nephrotoxic medication - KCL replacement and monitor magnesium level - Check serum and urine immunofixation - Possible bone marrow biopsy to rule out plasma cell malignancy - Abdominal fat pad biopsy by IR as per primary - Monitor electrolytes - we will continue to follow up Plan discussed with Dr. Roman Patient seen and examined by myself today in rounds with the medicine resident, I agree with her assessment and plan Plan discussed with: Patient, Other PERLITA ARTIS RESIDENT Nov 10, 2024 14:26 JERALD ROMAN MD Nov 11, 2024 11:35
--- NOTE | 2024-11-10 14:28 | DVHPNRES ---
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 The patient was recently hospitalized last month due to similar symptoms in which a kidney biopsy was performed showing amyloidosis and mass spectrometry was sent to [facility] which showed AL amyloid. The patient never had a bone marrow biopsy as outpatient due to distant appointments. The patient states that since four days ago symptoms started coming back, there was increase of bilateral lower extremity swelling which is extending from the foot all the way up to the knees bilaterally and associated shortness of breaths. On previous visit, the patient had a large right-sided pleural effusion that required thoracentesis. We ordered a chest x-ray which is currently showing elevated right hemidiaphragm with a possible small right-sided pleural effusion. We will perform a chest ultrasound to quantify level of effusion. The patient denies fever/chills, chest pain, or any other additional symptoms. The patient states that has been compliant with his Eliquis, bumetanide and metolazone which were prescribed upon discharge. Patient states that the medicine is no further working at this time. We will consult Nephrology for management of nephrotic syndrome and admit the patient for further assessment and management. Past medical history: Nephrotic syndrome recently diagnosed AL amyloidosis, hyperlipidemia Home medications: Eliquis 5 mg b.i.d., bumetanide 1 mg b.i.d., metolazone 5 mg daily, atorvastatin 20 mg daily, fenofibrate 160 mg daily, potassium 20 mEq as needed No surgical history Social history: Denies alcohol, drug or smoking Patient seen and examined at the bedside. Radiology consultation for thoracocentesis, fat pad biopsy and bone marrow biopsy. Objective vital signs Vital Sign Date Time Temp Pulse Resp B/P (MAP) Pulse Ox O2 Delivery O2 Flow Rate FiO2 11/10/24 09:00 97.6 81 18 100/53 (69) 98 97.6 11/10/24 08:00 Nasal Cannula* 1 24 Total Intake and Output 11/09/24 11/09/24 11/10/24 15:00 23:00 07:00 Intake Total 750 ml Output Total 200 ml Balance 550 ml medications Current Medications Medications Dose Ordered Sig/Matthias Route Start Time Stop Time Status Last Admin Dose Admin Acetaminophen 650 mg Q6HP PRN PO 11/09/24 23:15 Metolazone 5 mg DAILY PO 11/10/24 10:00 11/10/24 08:30 5 MG Atorvastatin Calcium 20 mg DAILY PO 11/10/24 10:00 11/10/24 08:29 20 MG Apixaban 5 mg BID PO 11/10/24 10:00 Hold Albumin Human 100 ml @ 100 mls/hr Q8H IV 11/10/24 10:00 11/11/24 02:59 11/10/24 08:29 100 MLS/HR Bumetanide 12.5 mg/Miscellaneous 50 ml @ 2 mls/hr Q24H IV 11/10/24 11:30 Midodrine 10 mg TID@0600,1200,1800 PO 11/10/24 12:00 11/10/24 12:19 10 MG Examination Patient lying in bed, in no acute distress General: Obese, afebrile, palor, mucosae are moist Cardiovascular: Regular S1 and S2. No murmurs, gallops or rubs. No JVD elevation. Bilateral 3+ pitting edema Respiratory: Decreased breath sound more on the right side. Saturating 97 on 1 L oxygen Abdomen: Soft, nontender, nondistended, normoactive bowel sounds, no rebound tenderness, no organomegaly, no masses Genitourinary: Deferred MSK/skin: Mobilizes 4 limbs. Skin is dry and warm Neurological: No motor, no sensitive deficits, normal speech. Pupils are isocoric and reactive. Psych/Mental Status: A/Ox3 laboratory and microbiology Laboratory Tests 11/10/24 06:29 Test 11/10/24 06:29 Range/Units Serum Glucose 88 74-106 mg/dL Labs and/or images reviewed: Labs reviewed by me, Image(s) reviewed by me Problem List/Assessment/Plan Problem List/Assessment/Plan Acute hypoxic respiratory failure likely due to right-sided pleural effusion, likely due to nephrotic syndrome (loss of oncotic pressure) status post thoracocentesis 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 ([facility] staging system) Nephrotic syndrome Pulmonary edema NSTEMI LUIS likely due to above, rule out obstruction Possible myeloma, R/O malignancy (per previous hospitalization) status post bone marrow biopsy Hyperlipidemia likely due to nephrotic syndrome Hypercoagulable state due to above Hypokalemia Prediabetes mellitus Hyperlipidemia Plan 11/10-Underwent right thoracocentesis with 1.5 L removed, follow up with the studies 11/10-underwent bone marrow biopsy Started midodrine TID, received IV albumin and 500 mL NS given hypotension. Started Bumex 0.5 mg/hour drip, discontinued furosemide 60 mg b.i.d. Continue metolazone 5 mg daily Hold Eliquis given procedures Continue home medication atorvastatin 20 mg daily Heme-Onc consultation Nephrology consultation Keep K greater than 4, Mag greater than 2 Renal diet, strict I&Os Follow up with postvoid bladder scan Plan discussed with patient in which all questions have been answered Goals of care discussed with patient for more than 30 minutes, full code status Case discussed with Dr. Campos Plan discussed with: Patient My Orders My Orders Orders - MERCEDES VILLAR Procedure Category Date Status Time * Radiologist Consult CONS 11/10/24 Transmitted 08:26 * Radiologist Consult CONS 11/10/24 Transmitted 08:26 Bladder Scan ORDERS 11/10/24 Transmitted 09:56 Give Un-Diluted PHA 11/10/24 In Process (Gi... W/Bumetanide 11:30 Communication Order ORDERS 11/10/24 Transmitted 11:20 Cloth Checker For SANTI 11/10/24 In Process 24 Hours 11:24 Transfer Orders XFER 11/10/24 Transmitted 11:24 * Radiologist Consult CONS 11/10/24 Transmitted 11:26 Midodrine Tablet PHA 11/10/24 In Process (Proamatine Tablet) 12:[address] 11/10/24 Resulted Needle Placeme 12:[address] 11/10/24 Resulted 12:01 Chest Portable XY 11/10/24 Resulted 13:00 Date of Service: Nov 10, 2024 Billing Provider: TAMMY DODSON MD Common Visit Codes: [id number] INP/OBS CARE(HIGH) MERCEDES VILLAR Nov 10, 2024 14:28 TAMMY DODSON MD Nov 23, 2024 09:16
[2024-11-10 15:31] LABS: Potassium 3.4 mmol/L (3.5-5.1)
[2024-11-10 15:38] LABS: Magnesium 2.2 mg/dL (1.6-2.6)
[2024-11-10] MEDS: fentaNYL CITRATE 100 MCG/2 ML VL IV ONE (16:25)
[2024-11-10] MEDS: MIDAZOLAM HCL 2MG/2ML 2ml VIAL (1mg/ml) IV ONE (16:25)
[2024-11-10] MEDS: LIDOCAINE 2%HCL (LOCAL ANESTH.) INJ 10ml MDV ONE (16:25)
[2024-11-10 16:36] LABS: Body Fluid Red Blood Cells 1709 CUMM (0-2000); Body Fluid White Blood Cells 252 CUMM (0-200)
[2024-11-10] MEDS: POTASSIUM EFFERVESENT TAB 25 MEQ PO ONE (16:45)
[2024-11-10] MEDS: ERGOCALCIFEROL 50,000 UNIT(1.25MG) CAP PO SCH (16:46)
[2024-11-10] MEDS: CYANOCOBALAMIN (B-12) 1000 MCG/1 ML VIAL IM ONE (16:46)
[2024-11-11] VITALS (15 sets, daily range): BP systolic 83–104; BP diastolic 46–68; PULSE 79–101; RESP 17–19; TEMP 97.3–98.4; O2SAT 92–97
[2024-11-11 06:31] LABS: Basophils # (auto) 0.1 10 ^3/uL (0-0.2); Basophils % (auto) 0.5 % (0.0-2.0); Eosinophils # (auto) 0.1 10 ^3/uL (0-0.8); Eosinophils % (auto) 0.6 % (0.0-7.0); Hematocrit 30.5 % (41.0-53.0); Hemoglobin 10.3 g/dL (13.5-17.5); Lymphocytes # (auto) 5.1 10 ^3/uL (0.4-5.4); Lymphocytes % (auto) 43.3 % (10.0-50.0); Mean Corpuscular Hemoglobin 28.2 pg (28.0-32.0); Mean Corpuscular Hgb Conc. 33.7 g/dL (32.0-36.0); Mean Corpuscular Volume 83.7 fL (80.0-100.0); Monocytes # (auto) 1.8 10 ^3/uL (0-1.3); Monocytes % (auto) 15.1 % (0.0-12.0); Neutrophils # (auto) 4.7 10 ^3/uL (1.6-8.6); Neutrophils % (auto) 40.5 % (37.0-80.0); Platelet Count (auto) 264 10^3/uL (140-450); Red Blood Cells 3.65 10^6/uL (4.5-5.90); Red Cell Distribution Width 16.3 % (11.8-14.3); White Blood Cell 11.7 10^3/uL (4.4-10.8)
[2024-11-11 06:35] LABS: Alanine Aminotransferase 16 U/L (7-40); Anion Gap 9 (5-15); Aspartate Aminotransferase 28 U/L (13-40); BUN/Creatinine Ratio 22.7 (10.0-20.0); Carbon Dioxide 30 mmol/L (20-31); Chloride 106 mmol/L (98-107); Glucose 88 mg/dL (74-106); Potassium 3.5 mmol/L (3.5-5.1); Sodium 145 mmol/L (136-145)
[2024-11-11 06:36] LABS: Bilirubin, Total 0.3 mg/dL (0.2-1.0)
[2024-11-11 06:42] LABS: Albumin 2.3 g/dL (3.2-4.8); Alkaline Phosphatase 130 U/L (46-116); Blood Urea Nitrogen 55 mg/dL (9-23); Calcium 8.1 mg/dL (8.7-10.4); Total Protein 3.4 g/dL (5.7-8.2)
[2024-11-11] MEDS: AZITHROMYCIN 500MG/ 250ML 250 ML IV SCH (07:15)
[2024-11-11] MEDS: cefTRIAXone 1GM/50ML D5W 50 ML IV SCH (07:15)
[2024-11-11] MEDS: BUMETANIDE INJECTION 12.5 MG in GIVE UN-DILUTED 0 ML IV SCH (07:25)
--- NOTE | 2024-11-11 08:52 | DVH ---
US US GUIDANCE FOR NEEDLE PLACEME, HISTORY: FAT PAD BIOPSY PROCEDURE: Informed consent was obtained. The patient was positioned supine on the table, and limited US was performed of the abdominal fat. The skin overlying the biopsy site was prepped with chlorhexi dine which was allowed to dry. Time out was performed. The entry site was anesthetized with 1% lidoca ine. A 18 gauge Biopince needle was advanced into the subcutaneous fat. Multiple core biopsy samples were obtained using the 18 gauge biopsy needle. The samples were sent to formalin to pathology for an alysis. Imaging through the biopsy site was performed. No immediate complication was identified. FINDINGS: Intra-procedural images show the biopsy needle at the subcutaneous fat. No significant pos t biopsy hemorrhage is identified. IMPRESSION: US guided abdominal subcutaneous fat pad biopsy. Pathology results pending.
[2024-11-11] MEDS ORDERED: POTASSIUM EFFERVESENT TAB 25 MEQ PO ONE (09:00)
[2024-11-11] MEDS: POTASSIUM EFFERVESENT TAB 25 MEQ PO ONE (10:02)
[2024-11-11] MEDS: HYDROCORTISONE 10 MG TAB PO ONE (12:03)
[2024-11-11] MEDS: ALBUMIN 25% 100 ML IV SCH (12:08)
--- NOTE | 2024-11-11 12:33 | DVHPN2 ---
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 The patient was recently hospitalized last month due to similar symptoms in which a kidney biopsy was performed showing amyloidosis and mass spectrometry was sent to [facility] which showed AL amyloid. The patient never had a bone marrow biopsy as outpatient due to distant appointments. The patient states that since four days ago symptoms started coming back, there was increase of bilateral lower extremity swelling which is extending from the foot all the way up to the knees bilaterally and associated shortness of breaths, decreased urine output. He denied fever, chills, cough with productive sputum, abdominal pain, nausea, vomiting, dysuria, hematuria or any change in bowel habit. The patient was seen and examined on the bedside. Alert oriented x3 and on room air. S/P right thoracentesis and 1.5 L removed, S/P bone marrow and abdominal fat pad biopsy. Mentioned improved shortness of breath and increased urine output. Other Systems: Patient seen and examined by myself today on rounds with the medicine resident, I agree with her assessment and plan Objective vital signs Vital Sign Date Time Temp Pulse Resp B/P (MAP) Pulse Ox O2 Delivery O2 Flow Rate FiO2 11/11/24 10:00 95/55 11/11/24 08:51 97.8 83 19 94 97.8 11/11/24 08:00 Room Air* 0 21 Total Intake and Output 11/10/24 11/10/24 11/11/24 15:00 23:00 07:00 Intake Total 460 ml 720 ml 800 ml Output Total 300 ml 1 ml Balance 460 ml 420 ml 799 ml medications Current Medications Medications Dose Ordered Sig/Matthias Route Start Time Stop Time Status Last Admin Dose Admin Acetaminophen 650 mg Q6HP PRN PO 11/09/24 23:15 Metolazone 5 mg DAILY PO 11/10/24 10:00 11/10/24 08:30 5 MG Atorvastatin Calcium 20 mg DAILY PO 11/10/24 10:00 11/11/24 10:03 20 MG Apixaban 5 mg BID PO 11/10/24 10:00 Hold Bumetanide 12.5 mg/Miscellaneous 50 ml @ 2 mls/hr Q24H IV 11/10/24 11:30 11/11/24 07:25 2 MLS/HR Midodrine 10 mg TID@0600,1200,1800 PO 11/10/24 12:00 11/11/24 12:03 10 MG Ceftriaxone Sodium 50 ml @ 100 mls/hr DAILY@09 IV 11/11/24 07:15 11/11/24 10:02 100 MLS/HR Azithromycin 250 ml @ 125 mls/hr DAILY IV 11/11/24 07:15 11/11/24 10:45 125 MLS/HR Albumin Human 100 ml @ 100 mls/hr Q1HR IV 11/11/24 12:00 11/11/24 13:59 11/11/24 12:08 100 MLS/HR Ergocalciferol 50,000 unit 2XW PO 11/11/24 11:45 UNV Examination Physical examination: General Appearance: Alert, Oriented X3, Cooperative, on room air HEENT: Atraumatic, PERRLA, EOMI, Mucous membrane moist/pink Respiratory: Bilateral decreased breath sound , mostly on the rt side. Cardiovascular: Regular rate, Normal S1, Normal S2, No murmurs, no chest wall tenderness Abdominal: Normal bowel sounds, Soft, No tenderness, No hepatospenomegaly, No masses Extremities: Edema +++, No clubbing, No cyanosis, Normal pulses, No tenderness/swelling Skin: No rashes, No breakdown, No significant lesion Neuro: Normal speech, Strength at 5/5 X4 ext, Normal tone, Sensation intact, Cranial nerves 3-12 NL, Reflexes 2+ Psych/Mental Status: Mental status NL, Mood NL laboratory and microbiology Laboratory Tests 11/11/24 05:16 Test 11/11/24 05:16 Range/Units Serum Glucose 88 74-106 mg/dL Microbiology Date/Time Source Procedure Growth Status 11/10/24 14:20 Pleural Fluid Gram Stain Pending Resulted 11/10/24 14:20 Pleural Fluid Aerobic Culture - Preliminary Resulted 11/10/24 05:34 Nose MRSA Screen - Final Complete Problem List/Assessment/Plan Problem List/Assessment/Plan Assessment/plan LUIS likely hemodynamically mediated/VMN 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 ([facility] staging system) Acute hypoxic respiratory failure likely due to right-sided pleural effusion, secondary to nephrotic syndrome, s/p thoracentesis Possible multiple myeloma, or light chain disease R/O malignancy (per previous hospitalization) Hyperlipidemia likely due to nephrotic syndrome Hypercoagulable state due to above Hypokalemia Plan/Recommendation Plan : - Slightly improved kidney function, increased urine output - IV albumin 25%, 100 cc at 100 ml/hr - IV Bumex drip - Continue metolazone 5 mg daily - Continue eloquis 5mg BID - Continue atorvastatin 20mg daily - Strict I&O - Avoid nephrotoxic medication - KCL replacement and monitor magnesium level - Check serum and urine immunofixation - S/P bone marrow and abdominal fat pad biopsy - Monitor electrolytes - we will continue to follow up Plan discussed with Dr. Shearer Plan discussed with: Patient, Other (RN) My Orders My Orders Orders - PERLITA ARTIS Procedure Category Date Status Time Immunofixation Urine LAB 11/10/24 Logged 13:19 PERLITA ARTIS Nov 11, 2024 12:33 JERALD SHEARER MD Nov 12, 2024 12:18
[2024-11-11 13:07] LABS: Protein, Body Fluid 0.3 g/dL (.)
--- NOTE | 2024-11-11 14:43 | DVHPNRES ---
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 The patient was recently hospitalized last month due to similar symptoms in which a kidney biopsy was performed showing amyloidosis and mass spectrometry was sent to [facility] which showed AL amyloid. The patient never had a bone marrow biopsy as outpatient due to distant appointments. The patient states that since four days ago symptoms started coming back, there was increase of bilateral lower extremity swelling which is extending from the foot all the way up to the knees bilaterally and associated shortness of breaths. On previous visit, the patient had a large right-sided pleural effusion that required thoracentesis. We ordered a chest x-ray which is currently showing elevated right hemidiaphragm with a possible small right-sided pleural effusion. We will perform a chest ultrasound to quantify level of effusion. The patient denies fever/chills, chest pain, or any other additional symptoms. The patient states that has been compliant with his Eliquis, bumetanide and metolazone which were prescribed upon discharge. Patient states that the medicine is no further working at this time. We will consult Nephrology for management of nephrotic syndrome and admit the patient for further assessment and management. Past medical history: Nephrotic syndrome recently diagnosed AL amyloidosis, hyperlipidemia Home medications: Eliquis 5 mg b.i.d., bumetanide 1 mg b.i.d., metolazone 5 mg daily, atorvastatin 20 mg daily, fenofibrate 160 mg daily, potassium 20 mEq as needed No surgical history Social history: Denies alcohol, drug or smoking 11/10-Patient seen and examined at the bedside. Radiology consultation for thoracocentesis, fat pad biopsy and bone marrow biopsy. 11/11-patient seen and examined at bedside. 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 Albumin given IV. One dose of hydrocortisone given. Objective vital signs Vital Sign Date Time Temp Pulse Resp B/P (MAP) Pulse Ox O2 Delivery O2 Flow Rate FiO2 11/11/24 13:00 97.4 84 18 92/56 (68) 92 97.4 11/11/24 08:00 Room Air* 0 21 Total Intake and Output 11/10/24 11/10/24 11/11/24 15:00 23:00 07:00 Intake Total 460 ml 720 ml 800 ml Output Total 300 ml 1 ml Balance 460 ml 420 ml 799 ml medications Current Medications Medications Dose Ordered Sig/Matthias Route Start Time Stop Time Status Last Admin Dose Admin Acetaminophen 650 mg Q6HP PRN PO 11/09/24 23:15 Metolazone 5 mg DAILY PO 11/10/24 10:00 11/10/24 08:30 5 MG Atorvastatin Calcium 20 mg DAILY PO 11/10/24 10:00 11/11/24 10:03 20 MG Apixaban 5 mg BID PO 11/10/24 10:00 Hold Bumetanide 12.5 mg/Miscellaneous 50 ml @ 2 mls/hr Q24H IV 11/10/24 11:30 11/11/24 07:25 2 MLS/HR Midodrine 10 mg TID@0600,1200,1800 PO 11/10/24 12:00 11/11/24 12:03 10 MG Ceftriaxone Sodium 50 ml @ 100 mls/hr DAILY@09 IV 11/11/24 07:15 11/11/24 10:02 100 MLS/HR Azithromycin 250 ml @ 125 mls/hr DAILY IV 11/11/24 07:15 11/11/24 10:45 125 MLS/HR Ergocalciferol 50,000 unit 2XW PO 11/13/24 12:00 Examination Patient lying in bed, in no acute distress General: Obese, afebrile, palor, mucosae are moist Cardiovascular: Regular S1 and S2. No murmurs, gallops or rubs. No JVD elevation. Bilateral 3+ pitting edema Respiratory: Decreased breath sound more on the right side. Saturating 97 on 1 L oxygen Abdomen: Soft, nontender, nondistended, normoactive bowel sounds, no rebound tenderness, no organomegaly, no masses Genitourinary: Deferred MSK/skin: Mobilizes 4 limbs. Skin is dry and warm Neurological: No motor, no sensitive deficits, normal speech. Pupils are isocoric and reactive. Psych/Mental Status: A/Ox3 laboratory and microbiology Laboratory Tests 11/11/24 05:16 Test 11/11/24 05:16 Range/Units Serum Glucose 88 74-106 mg/dL Microbiology Date/Time Source Procedure Growth Status 11/10/24 14:20 Pleural Fluid Gram Stain Pending Resulted 11/10/24 14:20 Pleural Fluid Aerobic Culture - Preliminary Resulted 11/10/24 05:34 Nose MRSA Screen - Final Complete Labs and/or images reviewed: Labs reviewed by me, Image(s) reviewed by me Problem List/Assessment/Plan Problem List/Assessment/Plan Acute hypoxic respiratory failure likely due to right-sided pleural effusion, likely due to nephrotic syndrome (loss of oncotic pressure) status post thoracocentesis 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 ([facility] staging system) Nephrotic syndrome Hypotension Pulmonary edema ? Gram-positive and negative pneumonia NSTEMI LUIS likely due to above, rule out obstruction Possible myeloma, R/O malignancy (per previous hospitalization) status post bone marrow biopsy Hyperlipidemia likely due to nephrotic syndrome Hypercoagulable state due to above Hypokalemia Prediabetes mellitus Hyperlipidemia Plan 11/10-Underwent right thoracocentesis with 1.5 L removed, follow up with the studies 11/10-underwent bone marrow biopsy 11/11-underwent fat pad biopsy Bumex drip on hold given hypotension Continue IV ceftriaxone and IV azithromycin starting 11/11 Started midodrine TID, received IV albumin and 500 mL NS given hypotension. Started Bumex 0.5 mg/hour drip, discontinued furosemide 60 mg b.i.d. Continue metolazone 5 mg daily We will resume Eliquis tomorrow Continue home medication atorvastatin 20 mg daily Heme-Onc consultation Nephrology consultation Keep K greater than 4, Mag greater than 2 Renal diet, strict I&Os Follow up with postvoid bladder scan Fluid restriction Plan discussed with patient in which all questions have been answered Goals of care discussed with patient for more than 30 minutes, full code status Case discussed with Dr. Campos Plan discussed with: Patient My Orders My Orders Orders - MERCEDES VILLAR Procedure Category Date Status Time Ceftriaxone 1gm/50ml PHA 11/11/24 In Process D5w (Rocephin) 07:15 Azithromycin 500mg/ PHA 11/11/24 In Process 250ml (Zithromax 50 07:15 Body Fluid Culture W/ GARRET 11/11/24 Logged GS 07:02 Us Guidance For US 11/11/24 Resulted Needle Placeme 07:59 Date of Service: Nov 11, 2024 Billing Provider: TAMMY DODSON MD Common Visit Codes: [id number] INP/OBS CARE(HIGH) MERCEDES VILLAR RESIDENT Nov 11, 2024 14:43 TAMMY DODSON MD Nov 23, 2024 09:18
[2024-11-11] MEDS: DOPamine 1600MCG/ML D5W 250 ML IV SCH (16:38)
[2024-11-12] VITALS (20 sets, daily range): BP systolic 93–125; BP diastolic 56–93; PULSE 70–91; RESP 16–21; TEMP 96.6–97.9; O2SAT 93–97
[2024-11-12 06:02] LABS: Basophils # (auto) 0 10 ^3/uL (0-0.2); Basophils % (auto) 0.3 % (0.0-2.0); Eosinophils # (auto) 0.2 10 ^3/uL (0-0.8); Eosinophils % (auto) 1.2 % (0.0-7.0); Hematocrit 34.5 % (41.0-53.0); Hemoglobin 11.5 g/dL (13.5-17.5); Lymphocytes # (auto) 6.3 10 ^3/uL (0.4-5.4); Mean Corpuscular Hemoglobin 27.7 pg (28.0-32.0); Mean Corpuscular Hgb Conc. 33.3 g/dL (32.0-36.0); Mean Corpuscular Volume 83.2 fL (80.0-100.0); Monocytes # (auto) 1.9 10 ^3/uL (0-1.3); Monocytes % (auto) 13.6 % (0.0-12.0); Neutrophils # (auto) 5.3 10 ^3/uL (1.6-8.6); Neutrophils % (auto) 38.9 % (37.0-80.0); Nucleated Red Blood Cells % 0.2 %; Platelet Count (auto) 317 10^3/uL (140-450); Red Blood Cells 4.15 10^6/uL (4.5-5.90); Red Cell Distribution Width 15.9 % (11.8-14.3); White Blood Cell 13.7 10^3/uL (4.4-10.8)
[2024-11-12 06:23] LABS: Alanine Aminotransferase 15 U/L (7-40); Anion Gap 7 (5-15); Aspartate Aminotransferase 22 U/L (13-40); Calcium 8.7 mg/dL (8.7-10.4); Carbon Dioxide 30 mmol/L (20-31); Glucose 88 mg/dL (74-106); Magnesium 2.2 mg/dL (1.6-2.6)
[2024-11-12 06:25] LABS: Albumin 2.3 g/dL (3.2-4.8); Alkaline Phosphatase 152 U/L (46-116); Bilirubin, Total 0.3 mg/dL (0.2-1.0); Blood Urea Nitrogen 50 mg/dL (9-23); Chloride 108 mmol/L (98-107); Potassium 3.1 mmol/L (3.5-5.1); Sodium 145 mmol/L (136-145); Total Protein 3.6 g/dL (5.7-8.2)
[2024-11-12] MEDS: POTASSIUM EFFERVESENT TAB 25 MEQ PO ONE ×2 (07:15→12:31)
--- NOTE | 2024-11-12 09:32 | DVHPNRES ---
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 The patient was recently hospitalized last month due to similar symptoms in which a kidney biopsy was performed showing amyloidosis and mass spectrometry was sent to [facility] which showed AL amyloid. The patient never had a bone marrow biopsy as outpatient due to distant appointments. The patient states that since four days ago symptoms started coming back, there was increase of bilateral lower extremity swelling which is extending from the foot all the way up to the knees bilaterally and associated shortness of breaths. On previous visit, the patient had a large right-sided pleural effusion that required thoracentesis. We ordered a chest x-ray which is currently showing elevated right hemidiaphragm with a possible small right-sided pleural effusion. We will perform a chest ultrasound to quantify level of effusion. The patient denies fever/chills, chest pain, or any other additional symptoms. The patient states that has been compliant with his Eliquis, bumetanide and metolazone which were prescribed upon discharge. Patient states that the medicine is no further working at this time. We will consult Nephrology for management of nephrotic syndrome and admit the patient for further assessment and management. Past medical history: Nephrotic syndrome recently diagnosed AL amyloidosis, hyperlipidemia Home medications: Eliquis 5 mg b.i.d., bumetanide 1 mg b.i.d., metolazone 5 mg daily, atorvastatin 20 mg daily, fenofibrate 160 mg daily, potassium 20 mEq as needed No surgical history Social history: Denies alcohol, drug or smoking 11/10-Patient seen and examined at the bedside. Radiology consultation for thoracocentesis, fat pad biopsy and bone marrow biopsy. 11/11-patient seen and examined at bedside. 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 Albumin given IV. One dose of hydrocortisone given. 11/12 - Patient seen and examined at the bedside. BP 110s sysolic, resumed bumex. Objective vital signs Vital Sign Date Time Temp Pulse Resp B/P (MAP) Pulse Ox O2 Delivery O2 Flow Rate FiO2 11/12/24 08:37 96.8 79 17 107/64 (78) 95 96.8 11/11/24 20:00 Room Air* 0 21 Total Intake and Output 11/11/24 11/11/24 11/12/24 15:00 23:00 07:00 Intake Total 50 ml 800 ml 800 ml Output Total 1000 ml 302 ml 840 ml Balance -950 ml 498 ml -40 ml medications Current Medications Medications Dose Ordered Sig/Matthias Route Start Time Stop Time Status Last Admin Dose Admin Acetaminophen 650 mg Q6HP PRN PO 11/09/24 23:15 Metolazone 5 mg DAILY PO 11/10/24 10:00 11/10/24 08:30 5 MG Atorvastatin Calcium 20 mg DAILY PO 11/10/24 10:00 11/11/24 10:03 20 MG Apixaban 5 mg BID PO 11/10/24 10:00 Hold Bumetanide 12.5 mg/Miscellaneous 50 ml @ 2 mls/hr Q24H IV 11/10/24 11:30 11/11/24 07:25 2 MLS/HR Midodrine 10 mg TID@0600,1200,1800 PO 11/10/24 12:00 11/12/24 05:47 10 MG Ceftriaxone Sodium 50 ml @ 100 mls/hr DAILY@09 IV 11/11/24 07:15 11/12/24 08:21 100 MLS/HR Azithromycin 250 ml @ 125 mls/hr DAILY IV 11/11/24 07:15 11/11/24 10:45 125 MLS/HR Ergocalciferol 50,000 unit 2XW PO 11/13/24 12:00 Dopamine HCl/ Dextrose 250 ml @ 7.65 mls/hr Q24H IV 11/11/24 15:30 11/11/24 16:38 7.65 MLS/HR Examination Patient lying in bed, in no acute distress General: Obese, afebrile, palor, mucosae are moist Cardiovascular: Regular S1 and S2. No murmurs, gallops or rubs. No JVD elevation. Bilateral 3+ pitting edema Respiratory: Decreased breath sound more on the right side. Saturating 97 on 1 L oxygen Abdomen: Soft, nontender, nondistended, normoactive bowel sounds, no rebound tenderness, no organomegaly, no masses Genitourinary: Deferred MSK/skin: Mobilizes 4 limbs. Skin is dry and warm Neurological: No motor, no sensitive deficits, normal speech. Pupils are isocoric and reactive. Psych/Mental Status: A/Ox3 laboratory and microbiology Laboratory Tests 11/12/24 05:06 Test 11/12/24 05:06 Range/Units Serum Glucose 88 74-106 mg/dL Microbiology Date/Time Source Procedure Growth Status 11/10/24 14:20 Pleural Fluid Gram Stain - Final Resulted 11/10/24 14:20 Pleural Fluid Aerobic Culture - Preliminary Resulted 11/10/24 05:34 Nose MRSA Screen - Final Complete Labs and/or images reviewed: Labs reviewed by me, Image(s) reviewed by me Problem List/Assessment/Plan Problem List/Assessment/Plan Acute hypoxic respiratory failure likely due to right-sided pleural effusion, likely due to nephrotic syndrome (loss of oncotic pressure) status post thoracocentesis 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 ([facility] staging system) Nephrotic syndrome Hypotension Pulmonary edema ? Gram-positive and negative pneumonia NSTEMI LUIS likely due to above, rule out obstruction Possible myeloma, R/O malignancy (per previous hospitalization) status post bone marrow biopsy Hyperlipidemia likely due to nephrotic syndrome Hypercoagulable state due to above Hypokalemia Prediabetes mellitus Hyperlipidemia Plan 11/10-Underwent right thoracocentesis with 1.5 L removed, follow up with the studies 11/10-underwent bone marrow biopsy 11/11-underwent fat pad biopsy Resumed Bumex drip 11/12/24 Continue IV ceftriaxone and IV azithromycin starting 11/11 Started midodrine TID, received IV albumin and 500 mL NS given hypotension. Started Bumex 0.5 mg/hour drip, discontinued furosemide 60 mg b.i.d. Continue metolazone 5 mg daily We will resume Eliquis tomorrow Continue home medication atorvastatin 20 mg daily Heme-Onc consultation Nephrology consultation Keep K greater than 4, Mag greater than 2 Renal diet, strict I&Os Fluid restriction Plan discussed with patient in which all questions have been answered Goals of care discussed with patient for more than 30 minutes, full code status Case discussed with Dr. Campos Plan discussed with: Patient My Orders My Orders Orders - MERCEDES VILLAR Procedure Category Date Status Time Maintain Fluid SANTI 11/11/24 In Process Restrictions 14:42 Check Pulse And Bp SANTI 11/11/24 In Process Q1hr 14:45 Communication Order ORDERS 11/11/24 Transmitted 14:46 Potassium Effervesent PHA 11/12/24 In Process Tab (Klor-Con/Ef) 13:00 Date of Service: Nov 12, 2024 Billing Provider: TAMMY DODSON MD Common Visit Codes: [id number] INP/OBS CARE(HIGH) MERCEDES VILLAR RESIDENT Nov 12, 2024 09:32 TAMMY DODSON MD Nov 23, 2024 09:22
--- NOTE | 2024-11-12 10:38 | DVHPN2 ---
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 The patient was recently hospitalized last month due to similar symptoms in which a kidney biopsy was performed showing amyloidosis and mass spectrometry was sent to [facility] which showed AL amyloid. The patient never had a bone marrow biopsy as outpatient due to distant appointments. The patient states that since four days ago symptoms started coming back, there was increase of bilateral lower extremity swelling which is extending from the foot all the way up to the knees bilaterally and associated shortness of breaths, decreased urine output. He denied fever, chills, cough with productive sputum, abdominal pain, nausea, vomiting, dysuria, hematuria or any change in bowel habit. The patient was seen and examined on the bedside. Alert oriented x3 and on room air. S/P right thoracentesis and 1.5 L removed, S/P bone marrow and abdominal fat pad biopsy. Mentioned improved shortness of breath and increased urine output. Other Systems: Patient seen and examined by myself today on rounds with the medicine resident, I agree with the assessment and plan Objective vital signs Vital Sign Date Time Temp Pulse Resp B/P (MAP) Pulse Ox O2 Delivery O2 Flow Rate FiO2 11/12/24 10:08 107/64 11/12/24 08:37 96.8 79 17 95 96.8 11/11/24 20:00 Room Air* 0 21 Total Intake and Output 11/11/24 11/11/24 11/12/24 15:00 23:00 07:00 Intake Total 50 ml 800 ml 800 ml Output Total 1000 ml 302 ml 840 ml Balance -950 ml 498 ml -40 ml medications Current Medications Medications Dose Ordered Sig/Matthias Route Start Time Stop Time Status Last Admin Dose Admin Acetaminophen 650 mg Q6HP PRN PO 11/09/24 23:15 Metolazone 5 mg DAILY PO 11/10/24 10:00 11/12/24 09:52 5 MG Atorvastatin Calcium 20 mg DAILY PO 11/10/24 10:00 11/11/24 10:03 20 MG Apixaban 5 mg BID PO 11/10/24 10:00 Bumetanide 12.5 mg/Miscellaneous 50 ml @ 2 mls/hr Q24H IV 11/10/24 11:30 11/12/24 10:08 2 MLS/HR Midodrine 10 mg TID@0600,1200,1800 PO 11/10/24 12:00 11/12/24 05:47 10 MG Ceftriaxone Sodium 50 ml @ 100 mls/hr DAILY@09 IV 11/11/24 07:15 11/12/24 08:21 100 MLS/HR Azithromycin 250 ml @ 125 mls/hr DAILY IV 11/11/24 07:15 11/12/24 09:51 125 MLS/HR Ergocalciferol 50,000 unit 2XW PO 11/13/24 12:00 Dopamine HCl/ Dextrose 250 ml @ 7.65 mls/hr Q24H IV 11/11/24 15:30 11/11/24 16:38 7.65 MLS/HR Examination Physical examination: General Appearance: Alert, Oriented X3, Cooperative, on room air HEENT: Atraumatic, PERRLA, EOMI, Mucous membrane moist/pink Respiratory: Bilateral decreased breath sound , mostly on the rt side. Cardiovascular: Regular rate, Normal S1, Normal S2, No murmurs, no chest wall tenderness Abdominal: Normal bowel sounds, Soft, No tenderness, No hepatospenomegaly, No masses Extremities: Edema +++, No clubbing, No cyanosis, Normal pulses, No tenderness/swelling Skin: No rashes, No breakdown, No significant lesion Neuro: Normal speech, Strength at 5/5 X4 ext, Normal tone, Sensation intact, Cranial nerves 3-12 NL, Reflexes 2+ Psych/Mental Status: Mental status NL, Mood NL Examination: LUNGS:Normal, CVS:Normal, MSK:Abnormal laboratory and microbiology Laboratory Tests 11/12/24 05:06 Test 11/12/24 05:06 Range/Units Serum Glucose 88 74-106 mg/dL Microbiology Date/Time Source Procedure Growth Status 11/10/24 14:20 Pleural Fluid Gram Stain - Final Resulted 11/10/24 14:20 Pleural Fluid Aerobic Culture - Preliminary Resulted 11/10/24 05:34 Nose MRSA Screen - Final Complete Labs and/or images reviewed: Labs reviewed by me, Image(s) reviewed by me Problem List/Assessment/Plan Problem List/Assessment/Plan Assessment/plan LUIS likely hemodynamically mediated/VMN 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 ([facility] staging system) Acute hypoxic respiratory failure likely due to right-sided pleural effusion, secondary to nephrotic syndrome, s/p thoracentesis Possible multiple myeloma, or light chain disease R/O malignancy (per previous hospitalization) Hyperlipidemia likely due to nephrotic syndrome Hypercoagulable state due to above Hypokalemia Plan/Recommendation Plan : - Slightly improved kidney function, increased urine output - IV dopamine drip 2mcg/kg/min - IV Bumex drip - Continue metolazone 5 mg daily - Continue eloquis 5mg BID - Continue atorvastatin 20mg daily - Strict I&O - Avoid nephrotoxic medication - KCL replacement and monitor magnesium level - Pending urine immunofixation - S/P bone marrow and abdominal fat pad biopsy - KCL replacement - we will continue to follow up Plan discussed with Dr. Shearer Plan discussed with: Patient, Other My Orders My Orders Orders - PERLITA ARTIS Procedure Category Date Status Time Dopamine 1600mcg/Ml PHA 11/11/24 In Process D5W 15:30 PERLITA ARTIS Nov 12, 2024 10:38 JERALD SHEARER MD Nov 12, 2024 12:19
[2024-11-12] MEDS: ACETAMINOPHEN 325 MG TAB PO PRN (11:05)
[2024-11-12] MEDS: POTASSIUM CHL 20 Meq TABLET PO ONE (12:38)
[2024-11-12] MEDS: POTASSIUM CHLORIDE 40 MEQ, LIDOCAINE 1% (LOCAL ANESTH.) 4 ML in SODIUM CHL 0.9% 250 ML IV ONE (15:58)
[2024-11-13] VITALS (9 sets, daily range): BP systolic 94–118; BP diastolic 53–80; PULSE 71–92; RESP 15–18; TEMP 97.4–97.9; O2SAT 91–96
[2024-11-13 06:01] LABS: Chloride 106 mmol/L (98-107); Potassium 3.6 mmol/L (3.5-5.1); Sodium 143 mmol/L (136-145)
[2024-11-13 06:02] LABS: Anion Gap 6 (5-15); Calcium 8.9 mg/dL (8.7-10.4); Carbon Dioxide 31 mmol/L (20-31)
[2024-11-13 06:06] LABS: Basophils # (auto) 0.1 10 ^3/uL (0-0.2); Basophils % (auto) 0.7 % (0.0-2.0); Eosinophils # (auto) 0.1 10 ^3/uL (0-0.8); Eosinophils % (auto) 1.1 % (0.0-7.0); Hemoglobin 12.9 g/dL (13.5-17.5); Lymphocytes # (auto) 4.6 10 ^3/uL (0.4-5.4); Mean Corpuscular Hemoglobin 27.6 pg (28.0-32.0); Mean Corpuscular Hgb Conc. 32.3 g/dL (32.0-36.0); Mean Corpuscular Volume 85.2 fL (80.0-100.0); Monocytes # (auto) 1.6 10 ^3/uL (0-1.3); Monocytes % (auto) 13.1 % (0.0-12.0); Neutrophils # (auto) 5.7 10 ^3/uL (1.6-8.6); Neutrophils % (auto) 47.1 % (37.0-80.0); Nucleated Red Blood Cells % 0.1 %; Platelet Count (auto) 212 10^3/uL (140-450); Red Blood Cells 4.69 10^6/uL (4.5-5.90); Red Cell Distribution Width 16.2 % (11.8-14.3); White Blood Cell 12.1 10^3/uL (4.4-10.8)
[2024-11-13 06:07] LABS: BUN/Creatinine Ratio 18.5 (10.0-20.0); Glucose 91 mg/dL (74-106)
[2024-11-13 06:15] LABS: Blood Urea Nitrogen 40 mg/dL (9-23)
[2024-11-13 07:29] LABS: Rapid Influenza A Negative (Negative); Rapid Influenza B Negative (Negative)
--- NOTE | 2024-11-13 11:31 | DVHPN2 ---
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 The patient was recently hospitalized last month due to similar symptoms in which a kidney biopsy was performed showing amyloidosis and mass spectrometry was sent to [facility] which showed AL amyloid. The patient never had a bone marrow biopsy as outpatient due to distant appointments. The patient states that since four days ago symptoms started coming back, there was increase of bilateral lower extremity swelling which is extending from the foot all the way up to the knees bilaterally and associated shortness of breaths, decreased urine output. He denied fever, chills, cough with productive sputum, abdominal pain, nausea, vomiting, dysuria, hematuria or any change in bowel habit. The patient was seen and examined on the bedside. Alert oriented x3 and on room air. S/P right thoracentesis and 1.5 L removed, S/P bone marrow and abdominal fat pad biopsy. Patient is in room air , mentioned increased urine output and decreased lower extremity swelling. Objective vital signs Vital Sign Date Time Temp Pulse Resp B/P (MAP) Pulse Ox O2 Delivery O2 Flow Rate FiO2 11/13/24 09:58 118/72 11/13/24 09:00 97.8 73 17 91 97.8 11/12/24 20:00 Room Air* 0 21 Total Intake and Output 11/12/24 11/12/24 11/13/24 15:00 23:00 07:00 Intake Total 300 ml 690 ml 600 ml Output Total 1650 ml 1900 ml Balance 300 ml -960 ml -1300 ml medications Current Medications Medications Dose Ordered Sig/Matthias Route Start Time Stop Time Status Last Admin Dose Admin Acetaminophen 650 mg Q6HP PRN PO 11/09/24 23:15 11/12/24 11:05 650 MG Metolazone 5 mg DAILY PO 11/10/24 10:00 11/13/24 09:56 5 MG Atorvastatin Calcium 20 mg DAILY PO 11/10/24 10:00 11/13/24 09:56 20 MG Apixaban 5 mg BID PO 11/10/24 10:00 11/13/24 09:58 5 MG Bumetanide 12.5 mg/Miscellaneous 50 ml @ 2 mls/hr Q24H IV 11/10/24 11:30 11/13/24 09:58 2 MLS/HR Midodrine 10 mg TID@0600,1200,1800 PO 11/10/24 12:00 11/13/24 05:25 10 MG Ceftriaxone Sodium 50 ml @ 100 mls/hr DAILY@09 IV 11/11/24 07:15 11/13/24 10:14 100 MLS/HR Azithromycin 250 ml @ 125 mls/hr DAILY IV 11/11/24 07:15 11/13/24 10:14 125 MLS/HR Ergocalciferol 50,000 unit 2XW PO 11/13/24 12:00 Dopamine HCl/ Dextrose 250 ml @ 7.65 mls/hr Q24H IV 11/11/24 15:30 11/12/24 15:57 7.65 MLS/HR Examination Physical examination: General Appearance: Alert, Oriented X3, Cooperative, on room air HEENT: Atraumatic, PERRLA, EOMI, Mucous membrane moist/pink Respiratory: Bilateral decreased breath sound , mostly on the rt side. Cardiovascular: Regular rate, Normal S1, Normal S2, No murmurs, no chest wall tenderness Abdominal: Normal bowel sounds, Soft, No tenderness, No hepatospenomegaly, No masses Extremities: Edema ++, No clubbing, No cyanosis, Normal pulses, No tenderness/swelling Skin: No rashes, No breakdown, No significant lesion Neuro: Normal speech, Strength at 5/5 X4 ext, Normal tone, Sensation intact, Cranial nerves 3-12 NL, Reflexes 2+ Psych/Mental Status: Mental status NL, Mood NL laboratory and microbiology Laboratory Tests 11/13/24 05:22 Test 11/13/24 05:22 Range/Units Serum Glucose 91 74-106 mg/dL Microbiology Date/Time Source Procedure Growth Status 11/10/24 14:20 Pleural Fluid Gram Stain - Final Resulted 11/10/24 14:20 Pleural Fluid Aerobic Culture - Preliminary Resulted 11/10/24 05:34 Nose MRSA Screen - Final Complete Labs and/or images reviewed: Labs reviewed by me, Image(s) reviewed by me Problem List/Assessment/Plan Problem List/Assessment/Plan Assessment/plan LUIS likely hemodynamically mediated/VMN 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 ([facility] staging system) Acute hypoxic respiratory failure likely due to right-sided pleural effusion, secondary to nephrotic syndrome, s/p thoracentesis Possible multiple myeloma, or light chain disease R/O malignancy (per previous hospitalization) Hyperlipidemia likely due to nephrotic syndrome Hypercoagulable state due to above Hypokalemia Plan/Recommendation Plan : - Improving kidney function, increased urine output - IV dopamine drip 2mcg/kg/min - IV Bumex drip - Continue metolazone 5 mg daily - Continue eloquis 5mg BID - Continue atorvastatin 20mg daily - Strict I&O - Avoid nephrotoxic medication - KCL replacement and monitor magnesium level - Pending urine immunofixation - S/P bone marrow and abdominal fat pad biopsy - KCL replacement - we will continue to follow up Plan discussed with Dr. Gore Plan discussed with: Patient, Other (RN) PERLITA ARTIS RESIDENT Nov 13, 2024 11:31
[2024-11-13] MEDS: ERGOCALCIFEROL 50,000 UNIT(1.25MG) CAP PO SCH (13:32)
--- NOTE | 2024-11-13 17:52 | DVHPNRES ---
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 The patient was recently hospitalized last month due to similar symptoms in which a kidney biopsy was performed showing amyloidosis and mass spectrometry was sent to [facility] which showed AL amyloid. The patient never had a bone marrow biopsy as outpatient due to distant appointments. The patient states that since four days ago symptoms started coming back, there was increase of bilateral lower extremity swelling which is extending from the foot all the way up to the knees bilaterally and associated shortness of breaths. On previous visit, the patient had a large right-sided pleural effusion that required thoracentesis. We ordered a chest x-ray which is currently showing elevated right hemidiaphragm with a possible small right-sided pleural effusion. We will perform a chest ultrasound to quantify level of effusion. The patient denies fever/chills, chest pain, or any other additional symptoms. The patient states that has been compliant with his Eliquis, bumetanide and metolazone which were prescribed upon discharge. Patient states that the medicine is no further working at this time. We will consult Nephrology for management of nephrotic syndrome and admit the patient for further assessment and management. Past medical history: Nephrotic syndrome recently diagnosed AL amyloidosis, hyperlipidemia Home medications: Eliquis 5 mg b.i.d., bumetanide 1 mg b.i.d., metolazone 5 mg daily, atorvastatin 20 mg daily, fenofibrate 160 mg daily, potassium 20 mEq as needed No surgical history Social history: Denies alcohol, drug or smoking 11/10-Patient seen and examined at the bedside. Radiology consultation for thoracocentesis, fat pad biopsy and bone marrow biopsy. 11/11-patient seen and examined at bedside. 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 Albumin given IV. One dose of hydrocortisone given. 11/12 - Patient seen and examined at the bedside. BP 110s sysolic, resumed bumex. -patient seen and examined at bedside. Reports feeling better, lower extremity swelling resolving. Continue Bumex and dopamine drip. Urine output more than 3 L. Objective vital signs Vital Sign Date Time Temp Pulse Resp B/P (MAP) Pulse Ox O2 Delivery O2 Flow Rate FiO2 11/13/24 17:00 97.9 74 15 113/69 (84) 93 97.9 11/13/24 08:00 Room Air* 0 21 Total Intake and Output 11/12/24 11/12/24 11/13/24 15:00 23:00 07:00 Intake Total 300 ml 690 ml 600 ml Output Total 1650 ml 1900 ml Balance 300 ml -960 ml -1300 ml medications Current Medications Medications Dose Ordered Sig/Matthias Route Start Time Stop Time Status Last Admin Dose Admin Acetaminophen 650 mg Q6HP PRN PO 11/09/24 23:15 11/12/24 11:05 650 MG Metolazone 5 mg DAILY PO 11/10/24 10:00 11/13/24 09:56 5 MG Atorvastatin Calcium 20 mg DAILY PO 11/10/24 10:00 11/13/24 09:56 20 MG Apixaban 5 mg BID PO 11/10/24 10:00 11/13/24 09:58 5 MG Bumetanide 12.5 mg/Miscellaneous 50 ml @ 2 mls/hr Q24H IV 11/10/24 11:30 11/13/24 09:58 2 MLS/HR Midodrine 10 mg TID@0600,1200,1800 PO 11/10/24 12:00 11/13/24 13:32 10 MG Ceftriaxone Sodium 50 ml @ 100 mls/hr DAILY@09 IV 11/11/24 07:15 11/13/24 10:00 100 MLS/HR Azithromycin 250 ml @ 125 mls/hr DAILY IV 11/11/24 07:15 11/13/24 10:14 125 MLS/HR Ergocalciferol 50,000 unit 2XW PO 11/13/24 12:00 11/13/24 13:32 50,000 UNIT Dopamine HCl/ Dextrose 250 ml @ 7.65 mls/hr Q24H IV 11/11/24 15:30 11/13/24 16:59 7.65 MLS/HR Examination Patient lying in bed, in no acute distress General: Obese, afebrile, palor, mucosae are moist Cardiovascular: Regular S1 and S2. No murmurs, gallops or rubs. No JVD elevation. Resolving Bilateral 3+ pitting edema Respiratory: Decreased breath sound more on the right side. Saturating 97 on room air Abdomen: Soft, nontender, nondistended, normoactive bowel sounds, no rebound tenderness, no organomegaly, no masses Genitourinary: Deferred MSK/skin: Mobilizes 4 limbs. Skin is dry and warm Neurological: No motor, no sensitive deficits, normal speech. Pupils are isocoric and reactive. Psych/Mental Status: A/Ox3 laboratory and microbiology Laboratory Tests 11/13/24 05:22 Test 11/13/24 05:22 Range/Units Serum Glucose 91 74-106 mg/dL Microbiology Date/Time Source Procedure Growth Status 11/10/24 14:20 Pleural Fluid Gram Stain - Final Resulted 11/10/24 14:20 Pleural Fluid Aerobic Culture - Preliminary Resulted 11/10/24 05:34 Nose MRSA Screen - Final Complete Labs and/or images reviewed: Labs reviewed by me, Image(s) reviewed by me Problem List/Assessment/Plan Problem List/Assessment/Plan Acute hypoxic respiratory failure likely due to right-sided pleural effusion, likely due to nephrotic syndrome (loss of oncotic pressure) status post thoracocentesis 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 ([facility] staging system) Nephrotic syndrome Hypotension Pulmonary edema ? Gram-positive and negative pneumonia NSTEMI LUIS likely due to above, rule out obstruction Possible myeloma, R/O malignancy (per previous hospitalization) status post bone marrow biopsy Hyperlipidemia likely due to nephrotic syndrome Hypercoagulable state due to above Hypokalemia Prediabetes mellitus Hyperlipidemia Plan 11/10-Underwent right thoracocentesis with 1.5 L removed, follow up with the studies 11/10-underwent bone marrow biopsy 11/11-underwent fat pad biopsy Resumed Bumex drip 11/12/24 and started dopamine drip at fixed dose 2 mcg/hour 11/11 Continue IV ceftriaxone and IV azithromycin starting 11/11 Started midodrine TID, received IV albumin and 500 mL NS given hypotension. Started Bumex 0.5 mg/hour drip, discontinued furosemide 60 mg b.i.d. Continue metolazone 5 mg daily We will resume Eliquis tomorrow Continue home medication atorvastatin 20 mg daily Nephrology consultation BUN/creatinine trending down Keep K greater than 4, Mag greater than 2 Renal diet, strict I&Os Fluid restriction Plan discussed with patient in which all questions have been answered Goals of care discussed with patient for more than 30 minutes, full code status Case discussed with Dr. Campos Plan discussed with: Patient My Orders My Orders Orders - MERCEDES VILLAR Procedure Category Date Status Time Mrsa Screen GARRET 11/13/24 In Process 05:00 Date of Service: Nov 13, 2024 Billing Provider: TAMMY DODSON MD Common Visit Codes: [id number] INP/OBS CARE(HIGH) MERCEDES VILLAR Nov 13, 2024 17:52 TAMMY DODSON MD Nov 23, 2024 09:26
[2024-11-14] VITALS (8 sets, daily range): BP systolic 95–112; BP diastolic 54–70; PULSE 70–87; RESP 15–18; TEMP 97.7–98.2; O2SAT 92–97
[2024-11-14 03:50] LABS: COVID19 ANTIGEN SOFIA FIA NEGATIVE (NEGATIVE)
[2024-11-14 07:15] LABS: Basophils # (auto) 0.1 10 ^3/uL (0-0.2); Basophils % (auto) 0.7 % (0.0-2.0); Eosinophils # (auto) 0.1 10 ^3/uL (0-0.8); Eosinophils % (auto) 0.9 % (0.0-7.0); Hematocrit 42.4 % (41.0-53.0); Hemoglobin 14.1 g/dL (13.5-17.5); Lymphocytes # (auto) 5.5 10 ^3/uL (0.4-5.4); Lymphocytes % (auto) 42.9 % (10.0-50.0); Mean Corpuscular Hemoglobin 27.7 pg (28.0-32.0); Mean Corpuscular Hgb Conc. 33.2 g/dL (32.0-36.0); Mean Corpuscular Volume 83.6 fL (80.0-100.0); Monocytes # (auto) 1.5 10 ^3/uL (0-1.3); Monocytes % (auto) 11.6 % (0.0-12.0); Neutrophils # (auto) 5.7 10 ^3/uL (1.6-8.6); Neutrophils % (auto) 43.9 % (37.0-80.0); Nucleated Red Blood Cells % 0.2 %; Platelet Count (auto) 382 10^3/uL (140-450); Red Blood Cells 5.07 10^6/uL (4.5-5.90); Red Cell Distribution Width 15.9 % (11.8-14.3); White Blood Cell 12.9 10^3/uL (4.4-10.8)
[2024-11-14 07:28] LABS: Anion Gap 8 (5-15); Calcium 8.9 mg/dL (8.7-10.4)
[2024-11-14 07:30] LABS: Carbon Dioxide 34 mmol/L (20-31); Chloride 101 mmol/L (98-107); Potassium 3.2 mmol/L (3.5-5.1); Sodium 143 mmol/L (136-145)
[2024-11-14 07:34] LABS: BUN/Creatinine Ratio 16.6 (10.0-20.0); Glucose 88 mg/dL (74-106)
[2024-11-14 07:36] LABS: Blood Urea Nitrogen 38 mg/dL (9-23)
[2024-11-14] MEDS: POTASSIUM EFFERVESENT TAB 25 MEQ PO ONE (11:36)
--- NOTE | 2024-11-14 13:55 | DVHPN2 ---
Progress Note Date Seen: Nov 14, 2024 Medical Necessity Reason Pt with a Central, PICC or Fol: No Subjective Review of Systems States he feels better. He is no longer on continuous O2. Patient reports: No new complaints, Feels better Objective vital signs Vital Sign Date Time Temp Pulse Resp B/P (MAP) Pulse Ox O2 Delivery O2 Flow Rate FiO2 11/14/24 13:00 97.9 87 15 99/65 (76) 92 97.9 11/14/24 08:00 Room Air* 0 21 Total Intake and Output 11/13/24 11/13/24 11/14/24 15:00 23:00 07:00 Intake Total 300 ml 556 ml 800 ml Output Total 2610 ml Balance 300 ml -2054 ml 800 ml medications Current Medications Medications Dose Ordered Sig/Matthias Route Start Time Stop Time Status Last Admin Dose Admin Acetaminophen 650 mg Q6HP PRN PO 11/09/24 23:15 11/12/24 11:05 650 MG Metolazone 5 mg DAILY PO 11/10/24 10:00 11/14/24 09:17 5 MG Atorvastatin Calcium 20 mg DAILY PO 11/10/24 10:00 11/14/24 09:18 20 MG Apixaban 5 mg BID PO 11/10/24 10:00 11/14/24 09:17 5 MG Bumetanide 12.5 mg/Miscellaneous 50 ml @ 2 mls/hr Q24H IV 11/10/24 11:30 11/14/24 01:00 2 MLS/HR Midodrine 10 mg TID@0600,1200,1800 PO 11/10/24 12:00 11/14/24 11:36 10 MG Ceftriaxone Sodium 50 ml @ 100 mls/hr DAILY@09 IV 11/11/24 07:15 11/14/24 09:05 100 MLS/HR Azithromycin 250 ml @ 125 mls/hr DAILY IV 11/11/24 07:15 11/14/24 09:05 125 MLS/HR Ergocalciferol 50,000 unit 2XW PO 11/13/24 12:00 11/13/24 13:32 50,000 UNIT Dopamine HCl/ Dextrose 250 ml @ 7.65 mls/hr Q24H IV 11/11/24 15:30 11/13/24 16:59 7.65 MLS/HR Examination Gen: NAD, appears stated age Lungs: Bilateral air entry, no rales Heart: RRR, normal S1 and S2 Ext: +2 BLE edema Neuro: A&O x4 laboratory and microbiology Laboratory Tests 11/14/24 05:37 Test 11/14/24 05:37 Range/Units Serum Glucose 88 74-106 mg/dL Microbiology Date/Time Source Procedure Growth Status 11/13/24 05:00 Nose MRSA Screen - Final Complete 11/10/24 14:20 Pleural Fluid Gram Stain - Final Resulted 11/10/24 14:20 Pleural Fluid Aerobic Culture - Preliminary Resulted Labs and/or images reviewed: Labs reviewed by sd Problem List/Assessment/Plan Problem List/Assessment/Plan IMP LUIS likely hemodynamically mediated/VMN- ongoing 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 ([facility] staging system) Acute hypoxic respiratory failure likely due to right-sided pleural effusion, secondary to nephrotic syndrome, s/p thoracentesis Possible multiple myeloma, or light chain disease R/O malignancy (per previous admission) Hyperlipidemia Hypokalemia REC - Serial chemistry panels - Strict I&Os - Potassium supplementation as needed - D/C dopamine gtt - Continue diuresis - Continue Eliquis - Avoidance of nephrotoxins, including NSAIDs and contrast dye if able - We will continue to follow Case discussed with Dr. Alpesh Gore Plan discussed with: Patient, Spouse BELL VINSON SHELVING SUPERVISOR Nov 14, 2024 13:55
--- NOTE | 2024-11-14 15:49 | DVHPNRES ---
Progress Note Date Seen: Nov 14, 2024 Resident Creating Document: DAY COHN RESIDENT Medical Necessity Reason Pt with a Central, PICC or Fol: No Subjective Review of Systems Patient seen and examined at the bedside. Objective vital signs Vital Sign Date Time Temp Pulse Resp B/P (MAP) Pulse Ox O2 Delivery O2 Flow Rate FiO2 11/14/24 13:00 97.9 87 15 99/65 (76) 92 97.9 11/14/24 08:00 Room Air* 0 21 Total Intake and Output 11/13/24 11/13/24 11/14/24 15:00 23:00 07:00 Intake Total 300 ml 556 ml 800 ml Output Total 2610 ml Balance 300 ml -2054 ml 800 ml medications Current Medications Medications Dose Ordered Sig/Matthias Route Start Time Stop Time Status Last Admin Dose Admin Acetaminophen 650 mg Q6HP PRN PO 11/09/24 23:15 11/12/24 11:05 650 MG Metolazone 5 mg DAILY PO 11/10/24 10:00 11/14/24 09:17 5 MG Atorvastatin Calcium 20 mg DAILY PO 11/10/24 10:00 11/14/24 09:18 20 MG Apixaban 5 mg BID PO 11/10/24 10:00 11/14/24 09:17 5 MG Bumetanide 12.5 mg/Miscellaneous 50 ml @ 2 mls/hr Q24H IV 11/10/24 11:30 11/14/24 01:00 2 MLS/HR Midodrine 10 mg TID@0600,1200,1800 PO 11/10/24 12:00 11/14/24 11:36 10 MG Ceftriaxone Sodium 50 ml @ 100 mls/hr DAILY@09 IV 11/11/24 07:15 11/14/24 09:05 100 MLS/HR Azithromycin 250 ml @ 125 mls/hr DAILY IV 11/11/24 07:15 11/14/24 09:05 125 MLS/HR Ergocalciferol 50,000 unit 2XW PO 11/13/24 12:00 11/13/24 13:32 50,000 UNIT Examination Reports feeling better, lower extremity swelling resolving. Continue Bumex and dopamine drip. laboratory and microbiology Laboratory Tests 11/14/24 05:37 Test 11/14/24 05:37 Range/Units Serum Glucose 88 74-106 mg/dL Microbiology Date/Time Source Procedure Growth Status 11/13/24 05:00 Nose MRSA Screen - Final Complete 11/10/24 14:20 Pleural Fluid Gram Stain - Final Resulted 11/10/24 14:20 Pleural Fluid Aerobic Culture - Preliminary Resulted Problem List/Assessment/Plan Problem List/Assessment/Plan Acute hypoxic respiratory failure likely due to right-sided pleural effusion, likely due to nephrotic syndrome (loss of oncotic pressure) status post thoracocentesis 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 ([facility] staging system) Nephrotic syndrome Hypotension Pulmonary edema ? Gram-positive and negative pneumonia NSTEMI LUIS likely due to above, rule out obstruction Possible myeloma, R/O malignancy (per previous hospitalization) status post bone marrow biopsy Hyperlipidemia likely due to nephrotic syndrome Hypercoagulable state due to above Hypokalemia Prediabetes mellitus Hyperlipidemia Plan 11/10-Underwent right thoracocentesis with 1.5 L removed, follow up with the studies 11/10-underwent bone marrow biopsy 11/11-underwent fat pad biopsy Resumed Bumex drip 11/12/24 and started dopamine drip at fixed dose 2 mcg/hour 11/11 Continue IV ceftriaxone and IV azithromycin starting 11/11 Started midodrine TID, received IV albumin and 500 mL NS given hypotension. Started Bumex 0.5 mg/hour drip, discontinued furosemide 60 mg b.i.d. Continue metolazone 5 mg daily We will resume Eliquis tomorrow Continue home medication atorvastatin 20 mg daily Nephrology consultation BUN/creatinine trending down Keep K greater than 4, Mag greater than 2 Renal diet, strict I&Os Fluid restriction Plan discussed with patient in which all questions have been answered Goals of care discussed with patient for more than 30 minutes, full code status Case discussed with Dr. Garcia Plan discussed with: Patient Date of Service: Nov 14, 2024 Billing Provider: TIKA GARCIA MD Common Visit Codes: [id number] INP/OBS CARE(HIGH) DAY COHN RESIDENT Nov 14, 2024 15:49 TIKA GARCIA MD Nov 14, 2024 22:22
[2024-11-15] VITALS (8 sets, daily range): BP systolic 97–109; BP diastolic 65–70; PULSE 72–82; RESP 16–20; TEMP 97.8–98.3; O2SAT 91–97
[2024-11-15 05:52] LABS: Chloride 101 mmol/L (98-107); Sodium 145 mmol/L (136-145)
[2024-11-15 05:53] LABS: Anion Gap 6 (5-15); Potassium 3.5 mmol/L (3.5-5.1)
[2024-11-15 05:54] LABS: Calcium 8.6 mg/dL (8.7-10.4); Carbon Dioxide 38 mmol/L (20-31)
[2024-11-15 05:58] LABS: BUN/Creatinine Ratio 14.7 (10.0-20.0); Glucose 86 mg/dL (74-106)
[2024-11-15 06:15] LABS: Blood Urea Nitrogen 38 mg/dL (9-23)
--- NOTE | 2024-11-15 15:03 | DVHPN2 ---
Progress Note Date Seen: Nov 15, 2024 Medical Necessity Reason Pt with a Central, PICC or Fol: No Subjective Patient reports: No new complaints, Feels better Objective vital signs Vital Sign Date Time Temp Pulse Resp B/P (MAP) Pulse Ox O2 Delivery O2 Flow Rate FiO2 11/15/24 13:20 72 20 97/65 (76) 94 11/15/24 09:00 98.2 98.2 11/15/24 08:00 Room Air* 0 21 Total Intake and Output 11/14/24 11/14/24 11/15/24 15:00 23:00 07:00 Intake Total 1218.2 ml 550 ml 800 ml Output Total 2825 ml Balance 1218.2 ml -2275 ml 800 ml medications Current Medications Medications Dose Ordered Sig/Matthias Route Start Time Stop Time Status Last Admin Dose Admin Acetaminophen 650 mg Q6HP PRN PO 11/09/24 23:15 11/12/24 11:05 650 MG Atorvastatin Calcium 20 mg DAILY PO 11/10/24 10:00 11/15/24 09:31 20 MG Apixaban 5 mg BID PO 11/10/24 10:00 11/15/24 09:31 5 MG Midodrine 10 mg TID@0600,1200,1800 PO 11/10/24 12:00 11/15/24 12:49 10 MG Ceftriaxone Sodium 50 ml @ 100 mls/hr DAILY@09 IV 11/11/24 07:15 11/15/24 08:04 100 MLS/HR Azithromycin 250 ml @ 125 mls/hr DAILY IV 11/11/24 07:15 11/15/24 09:31 125 MLS/HR Ergocalciferol 50,000 unit 2XW PO 11/13/24 12:00 11/13/24 13:32 50,000 UNIT Examination Gen: NAD, appears stated age Lungs: Bilateral air entry, no rales Heart: RRR, normal S1 and S2 Ext: +1 BLE edema Neuro: A&O x4 laboratory and microbiology Laboratory Tests 11/15/24 05:12 11/14/24 05:37 Test 11/15/24 05:12 Range/Units Serum Glucose 86 74-106 mg/dL Microbiology Date/Time Source Procedure Growth Status 11/13/24 05:00 Nose MRSA Screen - Final Complete 11/10/24 14:20 Pleural Fluid Gram Stain - Final Complete 11/10/24 14:20 Pleural Fluid Aerobic Culture - Final Complete Labs and/or images reviewed: Labs reviewed by me Problem List/Assessment/Plan Problem List/Assessment/Plan IMP LUIS likely hemodynamically mediated/VMN- ongoing, uptrend in serum creat 2.58 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 ([facility] staging system) Acute hypoxic respiratory failure likely due to right-sided pleural effusion, secondary to nephrotic syndrome, s/p thoracentesis Possible multiple myeloma, or light chain disease R/O malignancy (per previous admission) Hyperlipidemia Hypokalemia REC - Serial chemistry panels - Strict I&Os - D/C metolazone - Continue bumex gtt - Continue Eliquis - Avoidance of nephrotoxins, including NSAIDs and contrast studies if able - We will continue to follow Case discussed with Dr. Alpesh Gore Plan discussed with: Patient Dietary Evaluation Review Comments: 1) Encourage optimal PO intake 2) Refer to outpatient RD for weight management 3) Follow-up with nephrology 4) Continue to monitor I&O, labs, and skin integrity Expected Outcomes/Goals: 1) appetite and labs to improve 2) f/u in 3-5 days BELL VINSON Nov 15, 2024 15:03
--- NOTE | 2024-11-15 15:23 | DVHPNRES ---
Progress Note Date Seen: Nov 15, 2024 Resident Creating Document: MERCEDES VILLAR RESIDENT Medical Necessity Reason Pt with a Central, PICC or Fol: No Subjective Review of Systems This is a 49-year-old male with past medical history of hyperlipidemia, 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 The patient was recently hospitalized last month due to similar symptoms in which a kidney biopsy was performed showing amyloidosis and mass spectrometry was sent to [facility] which showed AL amyloid. The patient never had a bone marrow biopsy as outpatient due to distant appointments. The patient states that since four days ago symptoms started coming back, there was increase of bilateral lower extremity swelling which is extending from the foot all the way up to the knees bilaterally and associated shortness of breaths. On previous visit, the patient had a large right-sided pleural effusion that required thoracentesis. We ordered a chest x-ray which is currently showing elevated right hemidiaphragm with a possible small right-sided pleural effusion. We will perform a chest ultrasound to quantify level of effusion. The patient denies fever/chills, chest pain, or any other additional symptoms. The patient states that has been compliant with his Eliquis, bumetanide and metolazone which were prescribed upon discharge. Patient states that the medicine is no further working at this time. We will consult Nephrology for management of nephrotic syndrome and admit the patient for further assessment and management. Past medical history: Nephrotic syndrome recently diagnosed AL amyloidosis, hyperlipidemia Home medications: Eliquis 5 mg b.i.d., bumetanide 1 mg b.i.d., metolazone 5 mg daily, atorvastatin 20 mg daily, fenofibrate 160 mg daily, potassium 20 mEq as needed No surgical history Social history: Denies alcohol, drug or smoking 11/10-Patient seen and examined at the bedside. Radiology consultation for thoracocentesis, fat pad biopsy and bone marrow biopsy. 11/11-patient seen and examined at bedside. 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 case monitor. Albumin given IV. One dose of hydrocortisone given. 11/12 - Patient seen and examined at the bedside. BP 110s sysolic, resumed bumex. 11/13 -patient seen and examined at bedside. Reports feeling better, lower extremity swelling resolving. Continue Bumex and dopamine drip. Urine output more than 3 L. 11/15 - patient seen and examined at the bedside. Blood pressure 90 systolic. Dopamine was discontinued yesterday by Nephrology. IV Bumex discontinued. Resolving lower extremity edema. Creatinine up trending. Objective vital signs Vital Sign Date Time Temp Pulse Resp B/P (MAP) Pulse Ox O2 Delivery O2 Flow Rate FiO2 11/15/24 13:20 72 20 97/65 (76) 94 11/15/24 09:00 98.2 98.2 11/15/24 08:00 Room Air* 0 21 Total Intake and Output 11/14/24 11/14/24 11/15/24 15:00 23:00 07:00 Intake Total 1218.2 ml 550 ml 800 ml Output Total 2825 ml Balance 1218.2 ml -2275 ml 800 ml medications Current Medications Medications Dose Ordered Sig/Matthias Route Start Time Stop Time Status Last Admin Dose Admin Acetaminophen 650 mg Q6HP PRN PO 11/09/24 23:15 11/12/24 11:05 650 MG Atorvastatin Calcium 20 mg DAILY PO 11/10/24 10:00 11/15/24 09:31 20 MG Apixaban 5 mg BID PO 11/10/24 10:00 11/15/24 09:31 5 MG Midodrine 10 mg TID@0600,1200,1800 PO 11/10/24 12:00 11/15/24 12:49 10 MG Ceftriaxone Sodium 50 ml @ 100 mls/hr DAILY@09 IV 11/11/24 07:15 11/15/24 08:04 100 MLS/HR Azithromycin 250 ml @ 125 mls/hr DAILY IV 11/11/24 07:15 11/15/24 09:31 125 MLS/HR Ergocalciferol 50,000 unit 2XW PO 11/13/24 12:00 11/13/24 13:32 50,000 UNIT Examination Patient lying in bed, in no acute distress General: Obese, afebrile, palor, mucosae are moist Cardiovascular: Regular S1 and S2. No murmurs, gallops or rubs. No JVD elevation. Resolving Bilateral 3+ pitting edema Respiratory: Decreased breath sound more on the right side. Saturating 97 on room air Abdomen: Soft, nontender, nondistended, normoactive bowel sounds, no rebound tenderness, no organomegaly, no masses Genitourinary: Deferred MSK/skin: Mobilizes 4 limbs. Skin is dry and warm Neurological: No motor, no sensitive deficits, normal speech. Pupils are isocoric and reactive. Psych/Mental Status: A/Ox3 laboratory and microbiology Laboratory Tests 11/15/24 05:12 11/14/24 05:37 Test 11/15/24 05:12 Range/Units Serum Glucose 86 74-106 mg/dL Microbiology Date/Time Source Procedure Growth Status 11/13/24 05:00 Nose MRSA Screen - Final Complete 11/10/24 14:20 Pleural Fluid Gram Stain - Final Complete 11/10/24 14:20 Pleural Fluid Aerobic Culture - Final Complete Labs and/or images reviewed: Labs reviewed by me, Image(s) reviewed by me Problem List/Assessment/Plan Problem List/Assessment/Plan Acute hypoxic respiratory failure likely due to transudative right-sided pleural effusion, likely due to nephrotic syndrome (loss of oncotic pressure) status post thoracocentesis 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 ([facility] staging system) Nephrotic syndrome Hypotension Pulmonary edema ? Gram-positive and negative pneumonia NSTEMI LUIS likely due to above, rule out obstruction Possible myeloma, R/O malignancy (per previous hospitalization) status post bone marrow biopsy Hyperlipidemia likely due to nephrotic syndrome Hypercoagulable state due to above Hypokalemia Prediabetes mellitus Hyperlipidemia Plan Discontinued Bumex, dopamine was discontinued yesterday. Creatinine and serum chloride trending up. We will monitor patient for 24 hours without diuresis. Resume if needed. 11/10-Underwent right thoracocentesis with 1.5 L removed, culture shows no growth after 5 days of incubation transudative basilar light criteria 11/10-underwent bone marrow biopsy 11/11-underwent fat pad biopsy Received Bumex 0.5 mg/hours starting 11/12 till 11/14 with dopamine at fixed dose 2 mcg/hour 11/12 till 11/14 Continue IV ceftriaxone and IV azithromycin starting 11/11 Started midodrine TID, received IV albumin and 500 mL NS given hypotension. Previously received furosemide 60 mg b.i.d. Continue metolazone 5 mg daily Continue home medication atorvastatin 20 mg daily Nephrology on board Keep K greater than 4, Mag greater than 2 Renal diet, strict I&Os Fluid restriction On Eliquis 5 mg p.o. b.i.d. Plan discussed with patient in which all questions have been answered Goals of care discussed with patient for more than 30 minutes, full code status Case discussed with Dr. Garcia Plan discussed with: Patient Dietary Evaluation Review Recommendations by RD: Dietary education by RD Comments: 1) Encourage optimal PO intake 2) Refer to outpatient RD for weight management 3) Follow-up with nephrology 4) Continue to monitor I&O, labs, and skin integrity Expected Outcomes/Goals: 1) appetite and labs to improve 2) f/u in 3-5 days Date of Service: Nov 15, 2024 Billing Provider: TIKA GARCIA MD Common Visit Codes: [id number] INP/OBS CARE(HIGH) MERCEDES VILLAR RESIDENT Nov 15, 2024 15:23 TIKA GARCIA MD Nov 16, 2024 02:01
[2024-11-15] MEDS: Ensure HIGH Protein Chocolate 8oz Bottle PO SCH (18:20)
[2024-11-16] VITALS (8 sets, daily range): BP systolic 102–110; BP diastolic 63–76; PULSE 80–88; RESP 17–19; TEMP 96.7–98.4; O2SAT 91–96
[2024-11-16 05:54] LABS: Chloride 99 mmol/L (98-107); Sodium 143 mmol/L (136-145)
[2024-11-16 06:00] LABS: BUN/Creatinine Ratio 12.7 (10.0-20.0); Glucose 89 mg/dL (74-106)
[2024-11-16 06:10] LABS: Blood Urea Nitrogen 34 mg/dL (9-23); Potassium 2.9 mmol/L (3.5-5.1)
[2024-11-16 06:11] LABS: Anion Gap 10 (5-15); Carbon Dioxide 34 mmol/L (20-31)
[2024-11-16] MEDS: POTASSIUM CHL 20MEQ/100ML 100 ML IV SCH ×2 (08:15→18:27)
--- NOTE | 2024-11-16 10:57 | DVHPN2 ---
Progress Note Date Seen: Nov 16, 2024 Medical Necessity Reason Pt with a Central, PICC or Fol: No Subjective Patient reports: Feels better Objective vital signs Vital Sign Date Time Temp Pulse Resp B/P (MAP) Pulse Ox O2 Delivery O2 Flow Rate FiO2 11/16/24 09:00 97.7 85 17 110/74 (86) 92 97.7 11/16/24 07:36 Room Air* 0 21 Total Intake and Output 11/15/24 11/15/24 11/16/24 15:00 23:00 07:00 Intake Total 300 ml 840 ml 800 ml Output Total 950 ml Balance 300 ml -110 ml 800 ml medications Current Medications Medications Dose Ordered Sig/Matthias Route Start Time Stop Time Status Last Admin Dose Admin Acetaminophen 650 mg Q6HP PRN PO 11/09/24 23:15 11/12/24 11:05 650 MG Atorvastatin Calcium 20 mg DAILY PO 11/10/24 10:00 11/16/24 09:08 20 MG Apixaban 5 mg BID PO 11/10/24 10:00 11/16/24 09:09 5 MG Midodrine 10 mg TID@0600,1200,1800 PO 11/10/24 12:00 11/16/24 05:40 10 MG Ceftriaxone Sodium 50 ml @ 100 mls/hr DAILY@09 IV 11/11/24 07:15 11/16/24 09:08 100 MLS/HR Azithromycin 250 ml @ 125 mls/hr DAILY IV 11/11/24 07:15 11/16/24 09:10 125 MLS/HR Ergocalciferol 50,000 unit 2XW PO 11/13/24 12:00 11/13/24 13:32 50,000 UNIT Enteral Nutritional Formula 240 ml BIDWM PO 11/15/24 18:00 11/16/24 08:00 240 ML Potassium Chloride 100 ml @ 50 mls/hr Q2H IV 11/16/24 08:15 11/16/24 12:14 UNV Examination: GENERAL:Normal, CVS:Normal laboratory and microbiology Laboratory Tests 11/16/24 05:26 11/14/24 05:37 Test 11/16/24 05:26 Range/Units Serum Glucose 89 74-106 mg/dL Microbiology Date/Time Source Procedure Growth Status 11/13/24 05:00 Nose MRSA Screen - Final Complete 11/10/24 14:20 Pleural Fluid Gram Stain - Final Complete 11/10/24 14:20 Pleural Fluid Aerobic Culture - Final Complete Problem List/Assessment/Plan Problem List/Assessment/Plan LUIS due to nephrotic syndrome 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 Acute hypoxic respiratory failure likely due to right-sided pleural effusion, secondary to nephrotic syndrome, s/p thoracentesis Hyperlipidemia Hypokalemia cr has pleateu uop 2L continue to hold diuretics today will resume as po based on assessment diuretics on hold today, replace potassium strict I/O s/p BM biopsy, will need oncology f/u Continue Eliquis Avoidance of nephrotoxins, including NSAIDs and contrast studies if able We will continue to follow , no emergent indication for dialysis currently Plan discussed with: Patient Dietary Evaluation Review Comments: 1) Encourage optimal PO intake 2) Refer to outpatient RD for weight management 3) Follow-up with nephrology 4) Continue to monitor I&O, labs, and skin integrity Expected Outcomes/Goals: 1) appetite and labs to improve 2) f/u in 3-5 days HOLGER OTTO MD Nov 16, 2024 10:57
--- NOTE | 2024-11-16 17:48 | DVHPNRES ---
Progress Note Date Seen: Nov 16, 2024 Resident Creating Document: MERCEDES VILLAR RESIDENT Medical Necessity Reason Pt with a Central, PICC or Fol: No Subjective Review of Systems This is a 49-year-old male with past medical history of hyperlipidemia, 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 The patient was recently hospitalized last month due to similar symptoms in which a kidney biopsy was performed showing amyloidosis and mass spectrometry was sent to [facility] which showed AL amyloid. The patient never had a bone marrow biopsy as outpatient due to distant appointments. The patient states that since four days ago symptoms started coming back, there was increase of bilateral lower extremity swelling which is extending from the foot all the way up to the knees bilaterally and associated shortness of breaths. On previous visit, the patient had a large right-sided pleural effusion that required thoracentesis. We ordered a chest x-ray which is currently showing elevated right hemidiaphragm with a possible small right-sided pleural effusion. We will perform a chest ultrasound to quantify level of effusion. The patient denies fever/chills, chest pain, or any other additional symptoms. The patient states that has been compliant with his Eliquis, bumetanide and metolazone which were prescribed upon discharge. Patient states that the medicine is no further working at this time. We will consult Nephrology for management of nephrotic syndrome and admit the patient for further assessment and management. Past medical history: Nephrotic syndrome recently diagnosed AL amyloidosis, hyperlipidemia Home medications: Eliquis 5 mg b.i.d., bumetanide 1 mg b.i.d., metolazone 5 mg daily, atorvastatin 20 mg daily, fenofibrate 160 mg daily, potassium 20 mEq as needed No surgical history Social history: Denies alcohol, drug or smoking 11/10-Patient seen and examined at the bedside. Radiology consultation for thoracocentesis, fat pad biopsy and bone marrow biopsy. 11/11-patient seen and examined at bedside. 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 milker machine. Albumin given IV. One dose of hydrocortisone given. 11/12 - Patient seen and examined at the bedside. BP 110s sysolic, resumed bumex. 11/13 -patient seen and examined at bedside. Reports feeling better, lower extremity swelling resolving. Continue Bumex and dopamine drip. Urine output more than 3 L. 11/15 - patient seen and examined at the bedside. Blood pressure 90 systolic. Dopamine was discontinued yesterday by Nephrology. IV Bumex discontinued. Resolving lower extremity edema. Creatinine up trending. 11/16-patient seen and examined. Lower extremity edema minimal. IV Bumex in p.o. metolazone discontinued given patient getting alkalotic and creatinine increasing. Bone marrow biopsy shows 0.6% plasma cells. Objective vital signs Vital Sign Date Time Temp Pulse Resp B/P (MAP) Pulse Ox O2 Delivery O2 Flow Rate FiO2 11/16/24 13:00 98.1 85 18 105/68 (80) 96 98.1 11/16/24 07:36 Room Air* 0 21 Total Intake and Output 11/15/24 11/15/24 11/16/24 15:00 23:00 07:00 Intake Total 300 ml 840 ml 800 ml Output Total 950 ml Balance 300 ml -110 ml 800 ml medications Current Medications Medications Dose Ordered Sig/Matthias Route Start Time Stop Time Status Last Admin Dose Admin Acetaminophen 650 mg Q6HP PRN PO 11/09/24 23:15 11/12/24 11:05 650 MG Atorvastatin Calcium 20 mg DAILY PO 11/10/24 10:00 11/16/24 09:08 20 MG Apixaban 5 mg BID PO 11/10/24 10:00 11/16/24 09:09 5 MG Midodrine 10 mg TID@0600,1200,1800 PO 11/10/24 12:00 11/16/24 12:05 10 MG Ceftriaxone Sodium 50 ml @ 100 mls/hr DAILY@09 IV 11/11/24 07:15 11/16/24 09:08 100 MLS/HR Azithromycin 250 ml @ 125 mls/hr DAILY IV 11/11/24 07:15 11/16/24 09:10 125 MLS/HR Ergocalciferol 50,000 unit 2XW PO 11/13/24 12:00 11/16/24 12:05 50,000 UNIT Enteral Nutritional Formula 240 ml BIDWM PO 11/15/24 18:00 11/16/24 08:00 240 ML Examination Patient lying in bed, in no acute distress General: Obese, afebrile, palor, mucosae are moist Cardiovascular: Regular S1 and S2. No murmurs, gallops or rubs. No JVD elevation. Resolving Bilateral 3+ pitting edema Respiratory: Decreased breath sound more on the right side. Saturating 97 on room air Abdomen: Soft, nontender, nondistended, normoactive bowel sounds, no rebound tenderness, no organomegaly, no masses Genitourinary: Deferred MSK/skin: Mobilizes 4 limbs. Skin is dry and warm Neurological: No motor, no sensitive deficits, normal speech. Pupils are isocoric and reactive. Psych/Mental Status: A/Ox3 laboratory and microbiology Laboratory Tests 11/16/24 05:26 11/14/24 05:37 Test 11/16/24 05:26 Range/Units Serum Glucose 89 74-106 mg/dL Microbiology Date/Time Source Procedure Growth Status 11/13/24 05:00 Nose MRSA Screen - Final Complete 11/10/24 14:20 Pleural Fluid Gram Stain - Final Complete 11/10/24 14:20 Pleural Fluid Aerobic Culture - Final Complete Labs and/or images reviewed: Labs reviewed by me, Image(s) reviewed by me Problem List/Assessment/Plan Problem List/Assessment/Plan Acute hypoxic respiratory failure likely due to transudative right-sided pleural effusion, likely due to nephrotic syndrome (loss of oncotic pressure) status post thoracocentesis 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 Gram-positive and negative pneumonia NSTEMI LUIS likely due to above, rule out obstruction Possible myeloma, R/O malignancy (per previous hospitalization) status post bone marrow biopsy Hyperlipidemia likely due to nephrotic syndrome Hypercoagulable state due to above Hypokalemia Prediabetes mellitus Hyperlipidemia Plan Discontinued Bumex, dopamine was discontinued yesterday. Creatinine and serum chloride trending up. We will monitor patient for 24 hours without diuresis. Resume if needed. 11/10-Underwent right thoracocentesis with 1.5 L removed, culture shows no growth after 5 days of incubation transudative basilar light criteria 11/10-underwent bone marrow biopsy-shows 0.6% plasma cells 11/11-underwent fat pad biopsy Received Bumex 0.5 mg/hours starting 11/12 till 11/14 with dopamine at fixed dose 2 mcg/hour 11/12 till 11/14 Continue IV ceftriaxone and IV azithromycin starting 11/11 Started midodrine TID, received IV albumin and 500 mL NS given hypotension. Previously received furosemide 60 mg b.i.d. Continue metolazone 5 mg daily Continue home medication atorvastatin 20 mg daily Nephrology on board Keep K greater than 4, Mag greater than 2 Renal diet, strict I&Os Fluid restriction On Eliquis 5 mg p.o. b.i.d. Plan discussed with patient in which all questions have been answered Goals of care discussed with patient for more than 30 minutes, full code status Case discussed with Dr. Ramos Plan discussed with: Patient Dietary Evaluation Review Comments: 1) Encourage optimal PO intake 2) Refer to outpatient RD for weight management 3) Follow-up with nephrology 4) Continue to monitor I&O, labs, and skin integrity Expected Outcomes/Goals: 1) appetite and labs to improve 2) f/u in 3-5 days Date of Service: Nov 16, 2024 Billing Provider: REBECCA RAMOS MD Common Visit Codes: [id number] INP/OBS CARE(HIGH) MERCEDES VILLAR RESIDENT Nov 16, 2024 17:48 REBECCA RAMOS MD Nov 16, 2024 22:47
[2024-11-17 01:00] VITALS: BP 116/79; PULSE 83; RESP 16; TEMP 98.2; O2SAT 96
[2024-11-17 05:00] VITALS: BP 106/64; PULSE 83; RESP 16; TEMP 97.6; O2SAT 96
[2024-11-17 05:40] LABS: Basophils # (auto) 0.1 10 ^3/uL (0-0.2); Basophils % (auto) 0.7 % (0.0-2.0); Eosinophils # (auto) 0.1 10 ^3/uL (0-0.8); Hematocrit 42.5 % (41.0-53.0); Hemoglobin 14.2 g/dL (13.5-17.5); Lymphocytes # (auto) 6.1 10 ^3/uL (0.4-5.4); Lymphocytes % (auto) 44.6 % (10.0-50.0); Mean Corpuscular Hemoglobin 27.7 pg (28.0-32.0); Mean Corpuscular Hgb Conc. 33.5 g/dL (32.0-36.0); Mean Corpuscular Volume 82.7 fL (80.0-100.0); Monocytes # (auto) 1.8 10 ^3/uL (0-1.3); Monocytes % (auto) 12.9 % (0.0-12.0); Neutrophils # (auto) 5.6 10 ^3/uL (1.6-8.6); Neutrophils % (auto) 40.8 % (37.0-80.0); Nucleated Red Blood Cells % 0.2 %; Platelet Count (auto) 394 10^3/uL (140-450); Red Blood Cells 5.14 10^6/uL (4.5-5.90); Red Cell Distribution Width 16.2 % (11.8-14.3); White Blood Cell 13.7 10^3/uL (4.4-10.8)
[2024-11-17 05:50] LABS: Chloride 100 mmol/L (98-107); Sodium 140 mmol/L (136-145)
[2024-11-17 05:51] LABS: Anion Gap 7 (5-15)
[2024-11-17 05:56] LABS: BUN/Creatinine Ratio 12.5 (10.0-20.0); Glucose 94 mg/dL (74-106)
[2024-11-17 06:06] LABS: Blood Urea Nitrogen 33 mg/dL (9-23); Carbon Dioxide 33 mmol/L (20-31)
[2024-11-17 06:07] LABS: Calcium 7.9 mg/dL (8.7-10.4)
[2024-11-17] MEDS: POTASSIUM CHL 20MEQ/100ML 100 ML IV SCH (08:15)
[2024-11-17 09:00] VITALS: BP_SYST 120; BP_DIAS 76; BP_DIAS 78; PULSE 67; PULSE 84; RESP 17; RESP 18; TEMP 97.7; TEMP 97.8; O2SAT 100; O2SAT 92
--- NOTE | 2024-11-17 11:25 | DVHPN2 ---
Progress Note Date Seen: Nov 17, 2024 Medical Necessity Reason Pt with a Central, PICC or Fol: No Objective vital signs Vital Sign Date Time Temp Pulse Resp B/P (MAP) Pulse Ox O2 Delivery O2 Flow Rate FiO2 11/17/24 09:00 97.7 84 17 120/78 (92) 92 97.7 11/17/24 08:00 Room Air* 0 21 Total Intake and Output 11/16/24 11/16/24 11/17/24 15:00 23:00 07:00 Intake Total 555 ml 700 ml Output Total 1330 ml 900 ml Balance -775 ml -200 ml medications Current Medications Medications Dose Ordered Sig/Matthias Route Start Time Stop Time Status Last Admin Dose Admin Acetaminophen 650 mg Q6HP PRN PO 11/09/24 23:15 11/12/24 11:05 650 MG Atorvastatin Calcium 20 mg DAILY PO 11/10/24 10:00 11/17/24 09:28 20 MG Apixaban 5 mg BID PO 11/10/24 10:00 11/17/24 09:27 5 MG Midodrine 10 mg TID@0600,1200,1800 PO 11/10/24 12:00 11/17/24 05:24 10 MG Ceftriaxone Sodium 50 ml @ 100 mls/hr DAILY@09 IV 11/11/24 07:15 11/17/24 09:27 100 MLS/HR Azithromycin 250 ml @ 125 mls/hr DAILY IV 11/11/24 07:15 11/17/24 10:30 125 MLS/HR Ergocalciferol 50,000 unit 2XW PO 11/13/24 12:00 11/16/24 12:05 50,000 UNIT Enteral Nutritional Formula 240 ml BIDWM PO 11/15/24 18:00 11/17/24 08:00 240 ML Potassium Chloride 100 ml @ 50 mls/hr Q2H IV 11/17/24 08:15 11/17/24 14:14 Examination: GENERAL:Normal, CVS:Normal, SKIN:Normal laboratory and microbiology Laboratory Tests 11/17/24 05:22 Test 11/17/24 05:22 Range/Units Serum Glucose 94 74-106 mg/dL Microbiology Date/Time Source Procedure Growth Status 11/13/24 05:00 Nose MRSA Screen - Final Complete 11/10/24 14:20 Pleural Fluid Gram Stain - Final Complete 11/10/24 14:20 Pleural Fluid Aerobic Culture - Final Complete Problem List/Assessment/Plan Problem List/Assessment/Plan LUIS due to nephrotic syndrome 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 duran tomorrow from renal standpoint Plan discussed with: Patient Dietary Evaluation Review Comments: 1) Encourage optimal PO intake 2) Refer to outpatient RD for weight management 3) Follow-up with nephrology 4) Continue to monitor I&O, labs, and skin integrity Expected Outcomes/Goals: 1) appetite and labs to improve 2) f/u in 3-5 days HOLGER OTTO MD Nov 17, 2024 11:25
[2024-11-17] MEDS: POTASSIUM CHL 20 Meq TABLET PO ONE ×2 (13:06)
[2024-11-17 15:37] VITALS: PULSE 85
[2024-11-17] MEDS: POTASSIUM CHLORIDE 40 MEQ, LIDOCAINE 1% (LOCAL ANESTH.) 4 ML in SODIUM CHL 0.9% 250 ML IV ONE (16:20)
--- NOTE | 2024-11-17 16:35 | DVHPNRES ---
Progress Note Date Seen: Nov 17, 2024 Resident Creating Document: MERCEDES VILLAR RESIDENT Medical Necessity Reason Pt with a Central, PICC or Fol: No Subjective Review of Systems This is a 49-year-old male with past medical history of hyperlipidemia, 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 The patient was recently hospitalized last month due to similar symptoms in which a kidney biopsy was performed showing amyloidosis and mass spectrometry was sent to [facility] which showed AL amyloid. The patient never had a bone marrow biopsy as outpatient due to distant appointments. The patient states that since four days ago symptoms started coming back, there was increase of bilateral lower extremity swelling which is extending from the foot all the way up to the knees bilaterally and associated shortness of breaths. On previous visit, the patient had a large right-sided pleural effusion that required thoracentesis. We ordered a chest x-ray which is currently showing elevated right hemidiaphragm with a possible small right-sided pleural effusion. We will perform a chest ultrasound to quantify level of effusion. The patient denies fever/chills, chest pain, or any other additional symptoms. The patient states that has been compliant with his Eliquis, bumetanide and metolazone which were prescribed upon discharge. Patient states that the medicine is no further working at this time. We will consult Nephrology for management of nephrotic syndrome and admit the patient for further assessment and management. Past medical history: Nephrotic syndrome recently diagnosed AL amyloidosis, hyperlipidemia Home medications: Eliquis 5 mg b.i.d., bumetanide 1 mg b.i.d., metolazone 5 mg daily, atorvastatin 20 mg daily, fenofibrate 160 mg daily, potassium 20 mEq as needed No surgical history Social history: Denies alcohol, drug or smoking 11/10-Patient seen and examined at the bedside. Radiology consultation for thoracocentesis, fat pad biopsy and bone marrow biopsy. 11/11-patient seen and examined at bedside. 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 traffic monitor specialist. Albumin given IV. One dose of hydrocortisone given. 11/12 - Patient seen and examined at the bedside. BP 110s sysolic, resumed bumex. 11/13 -patient seen and examined at bedside. Reports feeling better, lower extremity swelling resolving. Continue Bumex and dopamine drip. Urine output more than 3 L. 11/15 - patient seen and examined at the bedside. Blood pressure 90 systolic. Dopamine was discontinued yesterday by Nephrology. IV Bumex discontinued. Resolving lower extremity edema. Creatinine up trending. 11/16-patient seen and examined. Lower extremity edema minimal. IV Bumex in p.o. metolazone discontinued given patient getting alkalotic and creatinine increasing. Bone marrow biopsy shows 0.6% plasma cells. 11/17-patient seen and examined. Off diuretics, creatinine plateaued. Objective vital signs Vital Sign Date Time Temp Pulse Resp B/P (MAP) Pulse Ox O2 Delivery O2 Flow Rate FiO2 11/17/24 15:37 85 11/17/24 09:00 97.7 17 120/78 (92) 92 97.7 11/17/24 08:00 Room Air* 0 21 Total Intake and Output 11/16/24 11/16/24 11/17/24 14:59 22:59 06:59 Intake Total 555 ml 700 ml Output Total 1330 ml 900 ml Balance -775 ml -200 ml medications Current Medications Medications Dose Ordered Sig/Matthias Route Start Time Stop Time Status Last Admin Dose Admin Acetaminophen 650 mg Q6HP PRN PO 11/09/24 23:15 11/12/24 11:05 650 MG Atorvastatin Calcium 20 mg DAILY PO 11/10/24 10:00 11/17/24 09:28 20 MG Apixaban 5 mg BID PO 11/10/24 10:00 11/17/24 09:27 5 MG Midodrine 10 mg TID@0600,1200,1800 PO 11/10/24 12:00 11/17/24 12:20 10 MG Ceftriaxone Sodium 50 ml @ 100 mls/hr DAILY@09 IV 11/11/24 07:15 11/17/24 09:27 100 MLS/HR Azithromycin 250 ml @ 125 mls/hr DAILY IV 11/11/24 07:15 11/17/24 10:30 125 MLS/HR Ergocalciferol 50,000 unit 2XW PO 11/13/24 12:00 11/16/24 12:05 50,000 UNIT Enteral Nutritional Formula 240 ml BIDWM PO 11/15/24 18:00 11/17/24 08:00 240 ML Examination Patient lying in bed, in no acute distress General: Obese, afebrile, palor, mucosae are moist Cardiovascular: Regular S1 and S2. No murmurs, gallops or rubs. No JVD elevation. Resolving Bilateral 3+ pitting edema Respiratory: Decreased breath sound more on the right side. Saturating 97 on room air Abdomen: Soft, nontender, nondistended, normoactive bowel sounds, no rebound tenderness, no organomegaly, no masses Genitourinary: Deferred MSK/skin: Mobilizes 4 limbs. Skin is dry and warm Neurological: No motor, no sensitive deficits, normal speech. Pupils are isocoric and reactive. Psych/Mental Status: A/Ox3 laboratory and microbiology Laboratory Tests 11/17/24 05:22 Test 11/17/24 05:22 Range/Units Serum Glucose 94 74-106 mg/dL Microbiology Date/Time Source Procedure Growth Status 11/13/24 05:00 Nose MRSA Screen - Final Complete 11/10/24 14:20 Pleural Fluid Gram Stain - Final Complete 11/10/24 14:20 Pleural Fluid Aerobic Culture - Final Complete Labs and/or images reviewed: Labs reviewed by me, Image(s) reviewed by me Problem List/Assessment/Plan Problem List/Assessment/Plan Acute hypoxic respiratory failure likely due to transudative right-sided pleural effusion, likely due to nephrotic syndrome (loss of oncotic pressure) status post thoracocentesis 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 Gram-positive and negative pneumonia NSTEMI LUIS likely due to above, rule out obstruction Possible myeloma, R/O malignancy (per previous hospitalization) status post bone marrow biopsy Hyperlipidemia likely due to nephrotic syndrome Hypercoagulable state due to above Hypokalemia Prediabetes mellitus Hyperlipidemia Plan Continuing monitoring of diuresis. Creatinine has plateaued. Urine output more than 2 L. nephrology on board. 11/10-Underwent right thoracocentesis with 1.5 L removed, culture shows no growth after 5 days of incubation transudative basilar light criteria 11/10-underwent bone marrow biopsy-shows 0.6% plasma cells 11/11-underwent fat pad biopsy Received Bumex 0.5 mg/hours starting 11/12 till 11/14 with dopamine at fixed dose 2 mcg/hour 11/12 till 11/14 Continue IV ceftriaxone and IV azithromycin starting 11/11 Started midodrine TID, received IV albumin and 500 mL NS given hypotension. Previously received furosemide 60 mg b.i.d. Continue metolazone 5 mg daily Continue home medication atorvastatin 20 mg daily Nephrology on board Keep K greater than 4, Mag greater than 2 Renal diet, strict I&Os Fluid restriction On Eliquis 5 mg p.o. b.i.d. Plan discussed with patient in which all questions have been answered Goals of care discussed with patient for more than 30 minutes, full code status Case discussed with Dr. Ramos Plan discussed with: Patient Dietary Evaluation Review Comments: 1) Encourage optimal PO intake 2) Refer to outpatient RD for weight management 3) Follow-up with nephrology 4) Continue to monitor I&O, labs, and skin integrity Expected Outcomes/Goals: 1) appetite and labs to improve 2) f/u in 3-5 days Date of Service: Nov 17, 2024 Billing Provider: REBECCA RAMOS MD Common Visit Codes: [id number] INP/OBS CARE(HIGH) MERCEDES VILLAR RESIDENT Nov 17, 2024 16:35 REBECCA RAMOS MD Nov 17, 2024 21:32
[2024-11-17 20:00] VITALS: PULSE 116; RESP 18; O2SAT 96
[2024-11-17 21:00] VITALS: BP 101/65; PULSE 92; RESP 17; TEMP 97.5; O2SAT 92
[2024-11-18] VITALS (7 sets, daily range): BP systolic 101–108; BP diastolic 60–81; PULSE 76–82; RESP 16–19; TEMP 97.3–97.8; O2SAT 93–98
[2024-11-18 07:08] LABS: Anion Gap 8 (5-15); Carbon Dioxide 30 mmol/L (20-31); Chloride 103 mmol/L (98-107); Sodium 141 mmol/L (136-145)
[2024-11-18 07:09] LABS: Potassium 3.3 mmol/L (3.5-5.1)
[2024-11-18 07:10] LABS: Calcium 7.9 mg/dL (8.7-10.4)
[2024-11-18 07:14] LABS: Glucose 85 mg/dL (74-106)
[2024-11-18 07:15] LABS: Blood Urea Nitrogen 31 mg/dL (9-23)
[2024-11-18] MEDS: POTASSIUM CHL 20 Meq TABLET PO ONE (09:37)
--- NOTE | 2024-11-18 14:24 | DVHDSRES ---
Discharge Summary Date of Admission Resident Creating Document: MERCEDES VILLAR RESIDENT Nov 09, 2024 at 23:10 Date of Discharge: Nov 18, 2024 Labs/Diagnostic Data: Laboratory Results Test 11/18/24 05:35 11/17/24 05:22 11/13/24 06:40 11/13/24 00:01 Sodium Level 141 mmol/L (136-145) Potassium Level 3.3 mmol/L (3.5-5.1) Chloride Level 103 mmol/L (98-107) Carbon Dioxide Level 30 mmol/L (20-31) Anion Gap 8 (5-15) Blood Urea Nitrogen 31 mg/dL (9-23) Creatinine 2.59 mg/dL (0.700-1.30) Glomerular Filtration Rate Calc 30 mL/min (>90) BUN/Creatinine Ratio 12.0 (10.0-20.0) Serum Glucose 85 mg/dL (74-106) Calcium Level 7.9 mg/dL (8.7-10.4) Magnesium Level 2.0 mg/dL (1.6-2.6) White Blood Count 13.7 10^3/uL (4.4-10.8) Red Blood Count 5.14 10^6/uL (4.5-5.90) Hemoglobin 14.2 g/dL (13.5-17.5) Hematocrit 42.5 % (41.0-53.0) Mean Corpuscular Volume 82.7 fL (80.0-100.0) Mean Corpuscular Hemoglobin 27.7 pg (28.0-32.0) Mean Corpuscular Hemoglobin Concent 33.5 g/dL (32.0-36.0) Red Cell Distribution Width 16.2 % (11.8-14.3) Platelet Count 394 10^3/uL (140-450) Mean Platelet Volume 9.4 fL (6.9-10.8) Neutrophils (%) (Auto) 40.8 % (37.0-80.0) Lymphocytes (%) (Auto) 44.6 % (10.0-50.0) Monocytes (%) (Auto) 12.9 % (0.0-12.0) Eosinophils (%) (Auto) 1.0 % (0.0-7.0) Basophils (%) (Auto) 0.7 % (0.0-2.0) Neutrophils # (Auto) 5.6 10 ^3/uL (1.6-8.6) Lymphocytes # (Auto) 6.1 10 ^3/uL (0.4-5.4) Monocytes # (Auto) 1.8 10 ^3/uL (0-1.3) Eosinophils # (Auto) 0.1 10 ^3/uL (0-0.8) Basophils # (Auto) 0.1 10 ^3/uL (0-0.2) Nucleated Red Blood Cells 0.2 % Influenza Type A Antigen Negative (Negative) Influenza Type B Antigen Negative (Negative) SARS-CoV-2 Antigen (Rapid) Negative (NEGATIVE) Test 11/12/24 05:06 11/10/24 17:20 11/10/24 14:20 11/10/24 06:29 Total Bilirubin 0.3 mg/dL (0.2-1.0) Aspartate Amino Transferase (AST) 22 U/L (13-40) Alanine Aminotransferase (ALT) 15 U/L (7-40) Alkaline Phosphatase 152 U/L (46-116) Total Protein 3.6 g/dL (5.7-8.2) Albumin 2.3 g/dL (3.2-4.8) Lactic Acid Level 0.7 mmol/L (0.4-2.0) Body Fluid Source Pleural fluid Body Fluid pH 8.0 Body Fluid WBC (Manual) 252 CUMM (0-200) Body Fluid RBC (Manual) 1709 CUMM (0-2000) Body Fluid Mononuclear Cells 92 % Body Fluid Polymorphonuclear Cells 8 % (0-25) Body Fluid Glucose 100 mg/dL (.) Body Fluid Total Protein 0.3 g/dL (.) Body Fluid Lactate Dehydrogenase 62 IU/L (.) Prothrombin Time 12.5 sec (9.3-11.8) Prothrombin Time INR 1.20 (0.9-1.15) Activated Partial Thromboplast Time 43.9 SEC (24.5-34.5) Vitamin B12 Level 249 pg/mL (211-911) Vitamin D 25-Hydroxy 12.6 ng/mL (30.0-100) Test 11/09/24 21:11 11/09/24 20:18 11/09/24 20:08 Troponin I High Sensitivity 140 ng/L (</=54) Hemoglobin A1c 5.9 % A1C (<5.7) B-Type Natriuretic Peptide 165.32 pg/mL (0-100) Triglycerides Level 559 mg/dL (< 150) Cholesterol Level 537 mg/dL (< 200) LDL Cholesterol mg/dL (< 100) HDL Cholesterol 37 mg/dL (40-59) Urine Color Yellow (Yellow) Urine Clarity Turbid (Clear) Urine pH 6.5 (5.0-9.0) Urine Specific [place] 1.030 (1.001-1.035) Urine Protein 3+ (Negative) Urine Ketones Negative (Negative) Urine Blood 2+ /uL (Negative) Urine Nitrite Negative (Negative) Urine Bilirubin Negative (Negative) Urine Urobilinogen Normal mg/dL (Negative) Urine Leukocyte Esterase Negative /uL (Negative) Urine RBC 7 /hpf (0 - 3) Urine Microscopic WBC 8 /HPF (0-3) Urine Squamous Epithelial Cells None seen /hpf (<5) Urine Bacteria Few /hpf (None Seen) Urine Granular Casts Few /lpf (0) Urine Mucus Few (None Seen) Urine Creatinine 159.67 mg/dL (30.0-125.0) Urine Protein/Creatinine Ratio 15.66 Urine Sodium < 10 mmol/L (40-220) Urine Glucose Normal mg/dL (Normal) Urine Total Protein > 2500.0 mg/dL (1-14) Urine Opiates Screen Neg (NEGATIVE) Urine Fentanyl Screen Neg (NEGATIVE) Urine Barbiturates Screen Neg (NEGATIVE) Urine Phencyclidine Screen Neg (NEGATIVE) Urine Amphetamines Screen Neg (NEGATIVE) Urine Benzodiazepines Screen Neg (NEGATIVE) Urine Cocaine Screen Neg (NEGATIVE) Urine Cannabinoids Screen Neg (NEGATIVE) Other Laboratory Tests 11/18/24 05:35 11/17/24 05:22 Brief Hx & Hospital Course: This is a 49-year-old male with past medical history of hyperlipidemia, 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 The patient was recently hospitalized last month due to similar symptoms in which a kidney biopsy was performed showing amyloidosis and mass spectrometry was sent to [facility] which showed AL amyloid. The patient never had a bone marrow biopsy as outpatient due to distant appointments. The patient states that since four days ago symptoms started coming back, there was increase of bilateral lower extremity swelling which is extending from the foot all the way up to the knees bilaterally and associated shortness of breaths. On previous visit, the patient had a large right-sided pleural effusion that required thoracentesis. We ordered a chest x-ray which is currently showing elevated right hemidiaphragm with a possible small right-sided pleural effusion. We will perform a chest ultrasound to quantify level of effusion. The patient denies fever/chills, chest pain, or any other additional symptoms. The patient states that has been compliant with his Eliquis, bumetanide and metolazone which were prescribed upon discharge. Patient states that the medicine is no further working at this time. We will consult Nephrology for management of nephrotic syndrome and admit the patient for further assessment and management. Past medical history: Nephrotic syndrome recently diagnosed AL amyloidosis, hyperlipidemia Home medications: Eliquis 5 mg b.i.d., bumetanide 1 mg b.i.d., metolazone 5 mg daily, atorvastatin 20 mg daily, fenofibrate 160 mg daily, potassium 20 mEq as needed No surgical history Social history: Denies alcohol, drug or smoking During the hospitalization, patient was started on IV ceftriaxone and azithromycin for possible parapneumonic effusion. patient underwent right sided thoracocentesis with 1.5 L removed, culture showed no growth after 5 days of incubation. It was transudative in nature visualized criteria. 11/10 also underwent bone marrow biopsy which showed 0.6% plasma cells. Underwent fat pad biopsy 11/11. Patient was hypotensive could not receive any diuretics initially nephrology was consulted, started dopamine drip at fixed dose. Received Bumex 0.5 mg/hours starting 11/12 till 11/14 with dopamine at fixed dose 2 mcg/hour 11/12 till 11/14 patient with good urine almost 3000 cc urine for the next 3 days. Patient lower extremity swelling resolved. We discontinued Bumex and dopamine. Patient's creatinine started to trend up but then plateaued towards 2.5-2.6 range. Patient was kept on renal diet, strict I&Os and fluid restriction. We continued his home medication Eliquis 5 mg p.o. b.i.d. given secondary coagulable state. 11/18-patient is hemodynamically stable, clinically stable, reports no acute complaint therefore he has been discharged home with the following instructions: Follow up with coil machine supervisor within 7 days as outpatient Follow up with primary care physician as outpatient within 7 days Follow up with [facility] clinic Follow up with the oncologist to review bone marrow biopsy results and skin pad biopsy results and further management Consults/Reason for consult Nephrology consulted IR consulted bone marrow biopsy Operations or Procedures ORDERING PHYSICIAN: MERCEDES VILLAR PROCEDURE(s): THOUS - US GUIDANCE FOR NEEDLE PLACEME REASON: FAT PAD BIOPSY ORDER NUMBER(s): [id number], ACCESSION NUMBER(s): [id number] US US GUIDANCE FOR NEEDLE PLACEME, HISTORY: FAT PAD BIOPSY PROCEDURE: Informed consent was obtained. The patient was positioned supine on the table, and limited US was performed of the abdominal fat. The skin overlying the biopsy site was prepped with chlorhexidine which was allowed to dry. Time out was performed. The entry site was anesthetized with 1% lidocaine. A 18 gauge Biopince needle was advanced into the subcutaneous fat. Multiple core biopsy samples were obtained using the 18 gauge biopsy needle. The samples were sent to formalin to pathology for analysis. Imaging through the biopsy site was performed. No immediate complication was identified. FINDINGS: Intra-procedural images show the biopsy needle at the subcutaneous fat. No significant post biopsy hemorrhage is identified. IMPRESSION: US guided abdominal subcutaneous fat pad biopsy. Pathology results pending. ATED BY: MARTA QUIJANO MD DICTATED DATE/TIME: 11/11/24 0850 SIGNED BY: MARTA QUIJANO MD SIGNED DATE/TIME: 11/11/24 0850 CC: ORDERING PHYSICIAN: MERCEDES VILLAR PROCEDURE(s): GA - CT GUIDANCE FOR NEEDLE PLACEME REASON: BONE MARROW BX ORDER NUMBER(s): [id number], ACCESSION NUMBER(s): [id number] CT PELVIS WO CONTRAST, HISTORY: BONE MARROW BX COMPARISON: None PROCEDURE: Informed consent and time-out was performed before the procedure. Conscious sedation was performed by the interventional radiology nurse. The right posterior pelvic bone was marked, sterilized, draped, and locally anesthetized using approximately 8 ml of 1% lidocaine. Axial CT images were used for localization. A 11 gauge PopSeal Bone Biopsy kit was used to take 15 mL aspirate and 1 core. The biopsy needle was then removed. No immediate complications noted. FINDINGS: Axial CT images demonstrates biopsy needle within the right posterior pelvic bone. IMPRESSION: Successful CT-guided bone marrow aspiration and biopsy of the right posterior pelvic bone. ATED BY: MARTA QUIJANO MD DICTATED DATE/TIME: 11/10/241304 SIGNED BY: MARTA QUIJANO MD SIGNED DATE/TIME: 11/10/241304 Condition at Discharge: Stable Final Diagnosis/Problems List Acute hypoxic respiratory failure likely due to transudative right-sided pleural effusion, likely due to nephrotic syndrome (loss of oncotic pressure) status post thoracocentesis 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 ([facility] staging system) Nephrotic syndrome Discharge Disposition: Home Discharge Instruct/Medications Diet: See Comment Diet comment: Low-sodium Moderate protein Limited fat and cholesterol Avoid excessive fluid intake especially fluid retention has a concern Activity: Light activity Follow Up/Referral: Follow up with coil machine supervisor within 7 days as outpatient Follow up with primary care physician as outpatient within 7 days Follow up with [facility] clinic Follow up with the oncologist to review bone marrow biopsy results and skin pad biopsy results and further management Medications: Continue home medication Discharge Statement: "Patient was advised to return to the ER or call 911 if any headaches, dizziness, shortness of breath, chest pain, abdominal pain, bleeding, fevers, or worsening of medical condition. Patient was counseled about treatment plan, medications, possible side effects, patientverbalized understanding. All questions were answered to the best of my ability. This discharge took greater then 30 minutes in planning, reviewing documentation, counseling the patient, and discussing with other team members." ASSESSMENT ASSESSMENT Assessment Acute hypoxic respiratory failure likely due to transudative right-sided pleural effusion, likely due to nephrotic syndrome (loss of oncotic pressure) status post thoracocentesis 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 ([facility] staging system) Nephrotic syndrome Date of Service: Nov 18, 2024 Billing Provider: REBECCA ZURITA MD Common Visit Codes: 37905-LYB/OBS DISCH DAY >30min MERCEDES VILLAR RESIDENT Nov 18, 2024 14:24 REBECCA ZURITA MD Nov 18, 2024 21:16
[2024-11-18] MEDS ORDERED: NUTR-559 PO (14:26)
[2024-11-18] MEDS ORDERED: CHOL500021 OR (14:26)
--- NOTE | 2024-11-18 16:16 | DVHPN2 ---
Progress Note Date Seen: Nov 18, 2024 Medical Necessity Reason Pt with a Central, PICC or Fol: No Subjective Review of Systems: HEENT:Normal Objective vital signs Vital Sign Date Time Temp Pulse Resp B/P (MAP) Pulse Ox O2 Delivery O2 Flow Rate FiO2 11/18/24 15:41 97.3 76 19 96 11/18/24 13:00 108/81 (90) 11/17/24 20:00 Room Air* 0 21 Total Intake and Output 11/17/24 11/17/24 11/18/24 15:00 23:00 07:00 Intake Total 850 ml 300 ml Balance 850 ml 300 ml medications Current Medications Medications Dose Ordered Sig/Matthias Route Start Time Stop Time Status Last Admin Dose Admin Acetaminophen 650 mg Q6HP PRN PO 11/09/24 23:15 11/12/24 11:05 650 MG Atorvastatin Calcium 20 mg DAILY PO 11/10/24 10:00 11/18/24 09:37 20 MG Apixaban 5 mg BID PO 11/10/24 10:00 11/18/24 09:37 5 MG Midodrine 10 mg TID@0600,1200,1800 PO 11/10/24 12:00 11/18/24 11:47 10 MG Ceftriaxone Sodium 50 ml @ 100 mls/hr DAILY@09 IV 11/11/24 07:15 11/18/24 09:38 100 MLS/HR Azithromycin 250 ml @ 125 mls/hr DAILY IV 11/11/24 07:15 11/18/24 10:22 125 MLS/HR Ergocalciferol 50,000 unit 2XW PO 11/13/24 12:00 11/16/24 12:05 50,000 UNIT Enteral Nutritional Formula 240 ml BIDWM PO 11/15/24 18:00 11/17/24 18:09 240 ML Examination: GENERAL:Normal, CVS:Normal laboratory and microbiology Laboratory Tests 11/18/24 05:35 11/17/24 05:22 Test 11/18/24 05:35 Range/Units Serum Glucose 85 74-106 mg/dL Microbiology Date/Time Source Procedure Growth Status 11/13/24 05:00 Nose MRSA Screen - Final Complete 11/10/24 14:20 Pleural Fluid Gram Stain - Final Complete 11/10/24 14:20 Pleural Fluid Aerobic Culture - Final Complete Problem List/Assessment/Plan Problem List/Assessment/Plan LUIS due to nephrotic syndrome 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 , biopsy proven Acute hypoxic respiratory failure likely due to right-sided pleural effusion, secondary to nephrotic syndrome, s/p thoracentesis Hyperlipidemia Hypokalemia diuretics on hold today, replace potassium strict I/O s/p BM biopsy, will need oncology f/u Continue Eliquis patient requires oncology for treatment of Amyloid Avoidance of nephrotoxins, including NSAIDs and contrast studies if able We will continue to follow , no emergent indication for dialysis currently has clinic appt with Dr. duran Plan discussed with: Patient Dietary Evaluation Review Comments: 1) Encourage optimal PO intake 2) Refer to outpatient RD for weight management 3) Follow-up with nephrology 4) Continue to monitor I&O, labs, and skin integrity Expected Outcomes/Goals: 1) appetite and labs to improve 2) f/u in 3-5 days HOLGER OTTO MD Nov 18, 2024 16:15
== END 2024-11-18 18:20 | disposition home or self-care (01) | DRG 346 ==
LOC: ER 19:56 → OVERFLOW 23:10 → EAST 11-10 04:41 → TELE-EAST 11-13 19:46 → EAST 11-18 10:32
PROVIDERS: ADMIT Internal Medicine Geriatric Medicine; ATTEND Internal Medicine Geriatric Medicine
PROC: 07DT3ZX Extraction of Bone Marrow, Percutaneous Approach, Diagnostic (ICD-10-PCS; principal; 2024-11-10)
PROC: 079T3ZX Drainage of Bone Marrow, Percutaneous Approach, Diagnostic (ICD-10-PCS; 2024-11-10)
PROC: 0W993ZZ Drainage of Right Pleural Cavity, Percutaneous Approach (ICD-10-PCS; 2024-11-10)
PROC: 0JB83ZX Excision of Abdomen Subcutaneous Tissue and Fascia, Percutaneous Approach, Diagnostic (ICD-10-PCS; 2024-11-11)
DX: E85.4 Organ-limited amyloidosis (principal); J96.01 Acute respiratory failure with hypoxia; N17.0 Acute kidney failure with tubular necrosis; I21.4 Non-ST elevation (NSTEMI) myocardial infarction; D68.59 Other primary thrombophilia; J81.1 Chronic pulmonary edema; I95.9 Hypotension, unspecified; C90.00 Multiple myeloma not having achieved remission; J90 Pleural effusion, not elsewhere classified; E78.5 Hyperlipidemia, unspecified; R73.03 Prediabetes; E87.6 Hypokalemia; Z79.899 Other long term (current) drug therapy; Z83.3 Family history of diabetes mellitus; N08 Glomerular disorders in diseases classified elsewhere
CPT/HCPCS: 10005; 32555; 36415; 71045; 72192; 76604; 76942; 77012; 80048; 80053; 80061; 80307; 81001; 82306; 82570; 82607; 83036; 83605; 83735; 83880; 83986; 84132; 84156; 84300; 84484; 85025; 85610; 85730; 87070; 87081; 87205; 87426; 87804; 89051; 93005; G0378; J2003; J2250; J3480; P9047

== ENCOUNTER 2025-02-22 06:51 | Emergency (ER) | payer MEDICAID ==
[~2025-02-22] VITALS: Ht 165.1 cm; Wt 90.4 kg
[~2025-02-22 06:51] MED LIST changes: +CHOL500021 OR; +FENO160T PO; +NUTR-559 PO
[2025-02-22 06:52] VITALS: BP 115/76; PULSE 117; RESP 20; TEMP 98.7; O2SAT 84
[2025-02-22] MEDS ORDERED: ONDANSETRON HCL 4 MG/2 ML VIAL IV ONE (07:15)
[2025-02-22] MEDS ORDERED: MORPHINE SULFATE 4 MG/ML SYR/VIAL IV ONE (07:15)
--- NOTE | 2025-02-22 07:20 | ED.PDOC ---
SOB-HPI HPI Comments 49 year old male presents to the ED with a chief back pain causing shortness of breath onset today (02/22/25) around 05:00. Patient's state patient woke up around 05:00, experiencing back pain, causing shortness of breath, pain worsens with taking deep breaths. Patient is on dialysis, goes Saturday, and Saturday. Upon ED arrival O2 sat was 84% on RA. PMHx CHF, amyloidosis. Denies dizziness, cough, cold, congestion, headache, fever, chills, nausea, vomiting. No other symptoms or modifying factors present at this time. Chief Complaint: Shortness of Breath Time Seen by MD: 07:12 Primary Care Provider: NONE Reviewed notes: Medications, Allergies Information Source: Patient, Spouse Mode of Arrival: Ambulatory Severity: Moderate Timing: Hours Duration: Since onset Context: At Rest PE Risk Factors: None History of: CHF Prehospital treatment: None Modifying Factors: Nothing Past Medical History PAST MEDICAL HISTORY: CHF, High Lipids Past Medical History (Other): amyloidosis Surgical History: Denies all surgeries Family History Family History: Reviewed,noncontributory to illness Social History Smoker: Non-Smoker Alcohol: Denies ETOH Use Drugs: Denies Drug Use Lives In: Home Constitutional: denies: chills, diaphoresis, fatigue, fever, malaise, sweats, weakness, others EENTM: denies: blurred vision, double vision, ear bleeding, ear discharge, ear drainage, ear pain, ear ringing, eye pain, eye redness, hearing loss, mouth pain, mouth swelling, nasal discharge, nose bleeding, nose congestion, nose pain, photophobia, tearing, throat pain, throat swelling, voice changes, others Respiratory: reports: shortness of breath; denies: cough, hemoptysis, orthopnea, SOB at rest, SOB with excertion, stridor, wheezing, others Cardiovascular: denies: chest pain, dizzy spells, diaphoresis, Dyspnea on exertion, edema, irregular heart beat, left arm pain, lightheadedness, palpitations, PND, syncope, others Gastrointestinal: denies: abdomen distended, abdominal pain, blood streaked bowels, constipated, diarrhea, dysphagia, difficulty swallowing, hematemesis, melena, nausea, poor appetite, poor fluid intake, rectal bleeding, rectal pain, vomiting, others Genitourinary: denies: burning, dysuria, flank pain, frequency, hematuria, incontinence, penile discharge, penile sore, pain, testicle pain, testicle swelling, urgency, others Neurological: denies: dizziness, fainting, headache, left sided numbness, left sided weakness, numbness, paresthesia, pre-existing deficit, right sided numbness, right sided weakness, seizure, speech problems, tingling, tremors, weakness, others Musculoskeletal: reports: back pain; denies: gout, joint pain, joint swelling, muscle pain, muscle stiffness, neck pain, others Integumetry: denies: bruises, change in color, change in hair/nails, dryness, laceration, lesions, lumps, rash, wounds, others Allergic/Immunocompromised: denies: Difficulty Healing, Frequent Infections, Hives, Itching, others Hematologic/Lymphatic: denies: anemia, blood clots, easy bleeding, easy bruising, swollen glands, others Endocrine: denies: excessive hunger, excessive sweating, excessive thirst, excessive urination, flushing, intolerance to cold, intolerance to heat, unexplained weight gain, unexplained weight loss, others Psychiatric: denies: anxiety, bipolar disorder, depression, hopeless, panic disorder, schizophrenia, sleepless, suicidal, others All Other Systems: Reviewed and Negative Physical Exam General Appearance: Moderate Distress, Normal HEENT: Normal ENT Inspection, Pharynx Normal, TMs Normal Neck: Full Range of Motion, Non-Tender, Normal, Normal Inspection Respiratory: Chest Non-Tender, No Accessory Muscle Use, Respiratory Distress Cardiovascular: No Edema, No JVD, No Murmur, No Gallop, Normal Peripheral Pulses, Regular Rate/Rhythm Breast Exam: Deferred Gastrointestinal: No Organomegaly, Non Tender, No Pulsatile Mass, Normal Bowel Sounds, Soft Genitalia: Deferred Pelvic: Deferred Rectal: Deferred Extremities: No calf tenderness, Normal capillary refill, Normal inspection, Normal range of motion, Non-tender, No pedal edema Musculoskeletal : Apperance: Normal Neurologic: Alert, alumni relations coordinator II-XII nml as Tested, No Motor Deficits, Normal Affect, Normal Mood, No Sensory Deficits Cerebellar Function: NOT DONE Reflexes: NOT DONE Skin: Dry, Normal Color, Warm Peripheral Pulses: 3+ Radial (R), 3+ Radial (L) Lymphatic: No Adenopathy Was a procedure done? Was a procedure done?: No Differential Dx Differential Diagnosis: Anxiety, Asthma, Bronchitis, CHF, COPD X-Ray, Labs, Meds, VS Vital Signs Date Time Temp Pulse Resp B/P (MAP) Pulse Ox O2 Delivery O2 Flow Rate FiO2 02/22/25 06:52 98.7 117 20 115/76 84 98.7 Patient alert. Complaining of back pain causing shortness a breath. Vitals stable. Placed on oxygen. He is on dialysis. Was given morphine. Was given Zofran. Continue monitoring. Time of 1ST Reevaluation: 07:42 Reevaluation 1ST: Unchanged Patient Education/Counseling: Diagnosis, Treatment, Prognosis Family Education/Counseling: Diagnosis, Treatment, Prognosis SEPSIS Sepsis Screen Date sepsis recognized/suspect: Feb 22, 2025 Time Sepsis recognized/suspect: 658 Recent Procedure: No On Antibiotic Therapy: Yes Respiratory Rate >20: No Heart Rate >90: Yes Temp<36 C (96.8 F) or >38.3 C: No SBP <90 or MAP <65 mmHG: No New Acute Mental Status Change: No Is the patient on CPAP, BIPAP,: No Physician Orders Troponin-I Hs (02/22/25 07:12) Complete Blood Count (02/22/25 07:12) Comprehensive Metabolic Panel (02/22/25 07:12) Chest Portable (02/22/25 07:12) Urinalysis (02/22/25 07:12) Troponin-I Hs (02/22/25 08:12) Troponin-I Hs (02/22/25 10:12) Vital Signs Date Time Temp Pulse Resp B/P (MAP) Pulse Ox O2 Delivery O2 Flow Rate FiO2 02/22/25 06:52 98.7 117 20 115/76 84 98.7 Departure 1 Departure Time of Disposition: 07:34 Impression: Primary Impression: Acute respiratory distress Disposition: ADMITTED INPATIENT Admit to: Med Surg Condition: Guarded Critical Care Note Critical Care Time?: Yes (90 min-critical care time only) Stability Stability form required: No Heart Score Heart Score: Heart Score Response (Comments) Value History Slightly Suspicious 0 EKG Normal 0 Age 45-64 1 Risk Factors >3 or Hx ASHD 2 Troponin Normal limit 0 Total 3 I personally scribed for MARIZA DISLA MD ([email or web address]) on 02/22/25 at 07:20. Electronically submitted by Yoko Hurt ([email or web address]). MARIZA DISLA MD Feb 22, 2025 07:20
[2025-02-22 08:09] LABS: Hemoglobin 7.3 g/dL (13.5-17.5); Nucleated Red Blood Cells % 2.0 %
[2025-02-22 08:12] LABS: Hematocrit 22.5 % (41.0-53.0); Mean Corpuscular Hemoglobin 29.3 pg (28.0-32.0); Mean Corpuscular Volume 89.8 fL (80.0-100.0)
[2025-02-22 08:18] LABS: Alanine Aminotransferase 32 U/L (7-40); Anion Gap 11 (5-15); BUN/Creatinine Ratio 6.1 (10.0-20.0); Bilirubin, Total 0.3 mg/dL (0.2-1.0); Carbon Dioxide 30 mmol/L (20-31); Chloride 103 mmol/L (98-107); Glucose 85 mg/dL (74-106); Potassium 3.9 mmol/L (3.5-5.1); Sodium 144 mmol/L (136-145)
[2025-02-22 08:28] LABS: Albumin 3.1 g/dL (3.2-4.8); Alkaline Phosphatase 224 U/L (46-116); Blood Urea Nitrogen 49 mg/dL (9-23); Calcium 8.7 mg/dL (8.7-10.4); Total Protein 4.8 g/dL (5.7-8.2)
--- NOTE | 2025-02-25 09:54 | ECG ---
[facility] Test Date: 2025-02-22 Test Time: 07:06:27 Pat Name: SHILA MARTINEZ Department: [facility] ED Room: Gender: M Housing [employer]: linh : 1975 Requested By: MARIZA DISLA Order Number: [id number] Reading MD: Dereck Shankar Measurements Intervals [place] Rate: 108 P: 59 IN: 135 QRS: 94 QRSD: 77 T: -33 QT: 344 QTc: 461 Interpretive Statements Sinus tachycardia Borderline right axis deviation Low voltage, precordial leads Anteroseptal infarct, old Baseline wander in lead(s) II Electronically Signed On 02-25-2025 15:10:53 PDT by Dereck Shankar Please click the below link to view image of tracing.
== END 2025-02-22 07:58 | disposition home or self-care (01) ==
LOC: ER 06:53
DX: R06.03 Acute respiratory distress (principal); Z79.899 Other long term (current) drug therapy
CPT/HCPCS: 36415; 80053; 84484; 85025; 93005